=== PATIENT | male | born 1955 | race Caucasian/White ===

== ENCOUNTER 2016-09-18 15:07 | Observation (INO) | payer OTHER ==
[2016-09-18] MEDS ORDERED: Metoclopramide IV* 5 MG/ML 2 ML VIAL IV ONE (15:31)
[2016-09-18] MEDS ORDERED: NS 0.9% 1000 ML* 1,000 ML IV ONE (15:31)
[2016-09-18] MEDS ORDERED: Aspirin TAB* 325 MG PO ONE (15:46)
[2016-09-18] MEDS ORDERED: Morphine INJ* 4 MG/ML 1 ML SYRINGE IV ONE (15:46)
[2016-09-18 16:28] LABS: Hematocrit 44 % (42-52); Hemoglobin 14.7 g/dl (14.0-18.0); Mean Corpuscular HGB Conc 33 g/dl (31-36); Mean Corpuscular Hemoglobin 30 pg (27-31); Mean Corpuscular Volume 89 fL (80-94); Mean Platelet Volume 10 um3 (7.4-10.4); Red Cell Distribution Width 14 % (10.5-15); White Blood Count 13.4 10^3/ul (3.5-10.8)
[2016-09-18 16:43] LABS: Albumin 4.7 g/dL (3.2-5.2); BUN/Creatinine Ratio 17.1 (8-20); Calcium 9.8 mg/dL (8.6-10.3); EGFR Non-African American 72.3 (>60); Globulin 3.8 g/dL (2-4); Potassium 3.6 mmol/L (3.5-5.0); Total Bilirubin 1.4 mg/dL (0.2-1.0); Total Protein 8.5 g/dL (6.4-8.9)
--- NOTE | 2016-09-18 17:24 | RAD ---
Indication: Left flank pain. CT of the abdomen and pelvis was performed without oral or IV contrast administration. Coronal and sagittal reconstructed images were obtained. The lung bases demonstrate no pleural fluid, nodules or masses. Heart is of normal size without evidence of pericardial effusion. Liver is normal in size. No focal lesions or intrahepatic ductal dilatation is noted. The gallbladder demonstrates no calcified gallstones. No pericholecystic fluid or wall thickening is identified. The common duct is not dilated. The pancreas demonstrates no mass or pancreatic ductal dilatation. The spleen is normal in size. No adrenal masses are noted. The kidneys demonstrate no hydronephrosis in either kidney. No hydroureter is noted. No definite evidence of obstructive uropathy is noted. The urinary bladder is unremarkable. Aorta and inferior vena cava are grossly unremarkable. Atherosclerosis is noted. No dilated loops of bowel are noted. The colon is collapsed. Normal appendix is documented. No free fluid is identified. The prostate demonstrates calcifications from prior prostatitis. Mild compression of L1 and T12 age of which is undetermined. IMPRESSION: NO EVIDENCE OF OBSTRUCTIVE UROPATHY IS NOTED. NO ABNORMAL MASSES OR FLUID COLLECTIONS ARE IDENTIFIED. NO EVIDENCE OF CHOLELITHIASIS OR BILIARY DUCT DILATATION IS NOTED.
[2016-09-18] MEDS ORDERED: PROCHLORPERAZINE INJ 5 MG/ML 2 ML VIAL IV ONE (18:22)
[2016-09-18] MEDS ORDERED: Nitroglycerin TAB 0.4 MG* 0.4 MG TAB SL ONE (18:23)
[2016-09-18] MEDS ORDERED: LORazepam INJ* 2 MG/ML 1 ML VIAL IV PUSH ONE (18:51)
[2016-09-18] MEDS ORDERED: PROCHLORPERAZINE INJ 5 MG/ML 2 ML VIAL IV PRN (18:51)
[2016-09-18] MEDS ORDERED: Zolpidem TAB* 10 MG PO PRN (18:51)
[2016-09-18] MEDS ORDERED: Acetaminophen TAB* 325 MG PO PRN (18:51)
[2016-09-18] MEDS ORDERED: Cyclobenzaprine TAB* 10 MG PO PRN (18:57)
[2016-09-18] MEDS ORDERED: traMADol TAB* 50 MG PO PRN (18:57)
[2016-09-18] MEDS ORDERED: Albuterol 2.5 MG/3 ML NEB.SOL* (0.083%) INH PRN (18:59)
[2016-09-18] MEDS ORDERED: NS 0.9% 1000 ML* 1,000 ML IV SCH (19:00)
[2016-09-18 19:08] LABS: Urine Bacteria Absent (Absent); Urine Bilirubin Negative (Negative); Urine Glucose Negative (Negative); Urine Nitrite Negative (Negative)
[2016-09-18] MEDS: Ondansetron INJ* 2 MG/ML VIAL IV PRN (20:29)
[2016-09-18] MEDS: Pregabalin CAP(*) 50 MG PO SCH (21:37)
[2016-09-18] MEDS: CMC:Ranolazine (NF) 500 MG TAB PO SCH (21:37)
[2016-09-18] MEDS: Losartan TAB* 25 MG PO SCH (21:38)
[2016-09-18] MEDS: Heparin VIAL(*) 5000 UNITS/ML VIAL (FIVE THOUSAND) SUBCUT SCH (21:39)
[2016-09-18] MEDS: Aspirin EC Low Dose* 81 MG TAB.EC PO SCH (21:39)
[2016-09-18] MEDS: Propranolol LA CAP* 60 MG PO SCH (21:39)
[2016-09-18] MEDS: Atorvastatin* 40 MG TAB PO SCH (21:39)
[2016-09-18] MEDS: Clopidogrel TAB* 75 MG PO SCH (21:39)
--- NOTE | 2016-09-18 22:44 | HP ---
HISTORY AND PHYSICAL: DATE OF ADMISSION: 09/18/16 PRIMARY CARE PROVIDER: Dr. Garcia. ATTENDING PHYSICIAN WHILE IN THE HOSPITAL: Dr. Fransisco Rowe* (report dictated by Joss Ocampo, STANLEY). CHIEF COMPLAINT: 1. Nausea. 2. Vomiting. 3. Abdominal pain. HISTORY OF PRESENT ILLNESS: Mr. Thrasher is a 61-year-old male patient coming in to the ER today with complaints of 2 days of decreased appetite, nausea, vomiting, and also associated diarrhea, no recent antibiotics. He says he had been having chills off and on and now, he has been vomiting almost on an hourly basis to the point that he is just aching all over. He has not documented a fever. He says that he has vomited so much now that he has chest pain when he does vomit. He says that 5 weeks ago, he had a stent put in. He has a history of coronary artery disease, COPD, hyperlipidemia, hypertension, peripheral vascular disease, carotid artery disease. He has a history of hypertension, anxiety, and nephrolithiasis. He says he has been having some pain now on his left side. He was concerned that maybe he had another kidney stone because he typically gets nauseous with his kidney stones. So, he decided to come in to the ER. He says he had been having chest pain off and on since his stent was placed 5 weeks ago. He says that it has been nonexertional and he is to follow up with his primary senior pl sql developer which he says he has been following closely with, but his big complaint is why he came in today was because he was feeling nauseous, he was vomiting, and he was having diarrhea and he was having abdominal discomfort and he was aching all over. He does describe again chest pain at times being a pressure, nonexertional, and it has been off and on for several weeks now and again, he has been following with his senior pl sql developer. He was evaluated in the ER. There was concern for the nausea and vomiting and the hospitalist service was asked to evaluate for admission. PAST MEDICAL HISTORY: Significant for: 1. Hypertension. 2. Anxiety. 3. Nephrolithiasis. 4. Coronary artery disease. 5. Peripheral vascular disease. 6. COPD. 7. Carotid artery disease. 8. Hyperlipidemia. 9. History of heart block, status post pacemaker. 10. Fibromyalgia. PAST SURGICAL HISTORY: 1. He has had a pacemaker placed. 2. He has had a right shoulder arthroscopy. 3. Left knee arthroscopy. 4. Hernia repair. 5. Cardiac catheterization. 6. Lymph node resection, which is benign. 7. He has had angioplasty of the bilateral lower extremities. HOME MEDICATIONS: According to the list that he brought with him includes: 1. Aspirin 81 mg daily. 2. Alendronate 70 mg weekly. 3. Ventolin 1 to 2 puffs inhaled every 6 hours as needed. 4. Lexapro 20 mg daily. 5. Flexeril 10 mg p.o. t.i.d. as needed. 6. Plavix 75 mg daily. 7. Vitamin D3 2000 units p.o. daily. 8. Calcium carbonate with vitamin D 1 tablet p.o. b.i.d. 9. Lipitor 40 mg daily. 10. Propranolol 60 mg daily. 11. Lyrica 50 mg p.o. t.i.d. 12. Nitro 0.4 mg sublingual q.5 minutes p.r.n. chest pain x3. 13. Cozaar 50 mg daily. 14. Advil 400 mg every 6 hours as needed for pain. 15. Tramadol 50 mg every 8 hours as needed. 16. Chantix 1 tablet p.o. b.i.d. 17. Spiriva 2 puffs inhaled daily. 18. Ranexa 1000 mg p.o. b.i.d. ALLERGIES TO MEDICATIONS: Include GABAPENTIN. FAMILY HISTORY: His mother had a history of a valvular heart disease. Father had a history of SD and CAD. SOCIAL HISTORY: He is a half a pack a day smoker. Rarely drinks alcohol. Surrogate decision maker is his , Keysha. REVIEW OF SYSTEMS: There is no documented fever. He does admit to having chills. No significant weight change. There was no double vision. He denies having any ear discharge. There is no rhinorrhea. No sore throat. No thyroid enlargement. There was chest pain per my HPI. There was no orthopnea. No nocturnal dyspnea. There is nausea. There is vomiting. There is abdominal pain per my HPI. No dysuria. No frequency. No seizure. No loss of consciousness. No pruritus and no skin ulcerations. Review of 14 systems completed, all others negative. PHYSICAL EXAMINATION GENERAL: At this time, Mr. Thrasher is a 61-year-old male patient. He is morbidly obese. He is sitting on the ER stretcher. He does not appear to be in any acute distress. VITAL SIGNS: Blood pressure 178/80, pulse 91, respirations 18, O2 sat 96%, and temperature 96.0. HEENT: Head is atraumatic and normocephalic. Eyes: EOMs are intact. His sclerae were anicteric and not pale. Throat: Oral mucosa appears to be moist. No oropharyngeal erythema. NECK: Supple. LUNGS: Clear to auscultation. No wheezes, rales, or rhonchi. HEART: Sounds S1, S2. Regular rate and rhythm. No murmurs, rubs, or gallops. ABDOMEN: Soft, flat. Bowel sounds hyperactive in all 4 quadrants. He was nontender on my exam. EXTREMITIES: Pulses were 2+ throughout. No peripheral edema. He is able to move all 4 extremities with 5/5 strength. NEUROLOGIC: The patient is awake, he is alert, and he is oriented x3. No gross focal deficits. SKIN: Intact. LABORATORY DATA AND DIAGNOSTIC STUDIES: Today revealed WBC 13.4, RBC of 5.00, hemoglobin 14.7, hematocrit of 44, platelet count of 104. Sodium 138, potassium 3.6, chloride of 103, bicarb 24, BUN 18, creatinine 1.05, glucose 124 , lactic 3.0, calcium 9.8. Total bili 1.4, AST 15, ALT 15, alk phos 96. Troponin 0. Albumin of 4.7. Urine is pending. He had a chest, abdomen, and pelvis CT, which revealed impression: No evidence of obstructive uropathy is noted. No abnormal masses or fluid collections are identified. No evidence of cholelithiasis or biliary ductal dilatation. He had an EKG obtained today. EKG shows normal sinus rhythm with a PVC. No ST elevations or T-wave inversions were noted with a rate of 86. It was reviewed to the previous EKG. It is similar, but the PVC is new. Old medical records were reviewed. ASSESSMENT AND PLAN: Mr. Thrasher is a 61-year-old male patient coming in to the ER today with complaints of nausea, vomiting, diarrhea, aching, in addition to this having chest discomfort. He will be admitted under observation status for: 1. Nausea and vomiting with abdominal discomfort: I suspect he has a gastroenteritis. It has been going on for 2 days. I do not see the need to put antibiotics on the patient at this point. I would like to get a stool, send it off for sampling, cultures if possible. I am going to flu swab him. He does appear to be dehydrated. His lactic was 3. He got a liter here in the ER. I will continue normal saline at 100, repeat the lactic acid, and again, we will support him with antiemetics and clear liquid diet and see if any other symptoms evolve while he is here. His imaging was negative to this point. I will wait for the urine and I am also getting a flu swab and we will treat appropriately if any of these come back positive. 2. Chest pain: Again, this has been going on for sometime. Certainly with the nausea and vomiting, this could be acute coronary syndrome possibly, but I think this is less likely because he has been having diarrhea which does not fit and his chest discomfort has been going on for sometime. I do think he is warranted to check his troponins. I would not do a stress test at this point because he is acutely ill, but this could be done in the outpatient setting under the direction of his senior pl sql developer. 3. Coronary artery disease: Continue his aspirin, statin, beta-bart, and Plavix. 4. Hypertension: Continue meds as prescribed. His blood pressure is elevated here in the ER, but he says he has not taken his meds in a couple days, so we will restart them now and get him back on his Plavix and aspirin. 5. Anxiety: We will go ahead and continue his Lexapro, and I will give him a dose of Ativan now. This may help his nausea. He does state that he feels very anxious. 6. History of peripheral vascular disease: Continue with aspirin and Plavix. 7. Chronic obstructive pulmonary disease: Continue Spiriva p.r.n. neb. 8. Carotid artery disease: Continue with aspirin, Plavix, and statin therapy. 9. Hyperlipidemia: Continue statin therapy. 10. History of fibromyalgia: Continue meds as prescribed. 11. DVT prophylaxis: He is moderate risk. I do think I will put him on heparin subcu. 12. Code status: Full code. 13. Fluids, electrolytes, and nutrition: He will have a clear liquid diet and I will go ahead and hydrate him with normal saline at 100 an hour and replace lytes as needed. TIME SPENT: Time spent on the admission was approximately 60 minutes, greater than half the time was spent [id number] with the patient obtaining my history and physical, other half the time spent going over the plan of care with the patient and implementing plan of care. I did discuss the plan of care with my attending, Dr. Rowe; he is in agreement. JOSS OCAMPO NP CC: Dr. Garcia* [id number]/CPS #: [id number] PATRICIO
[2016-09-19] MEDS: Heparin VIAL(*) 5000 UNITS/ML VIAL (FIVE THOUSAND) SUBCUT SCH ×3 (06:00→21:29)
[2016-09-19 06:02] LABS: Hematocrit 38 % (42-52); Mean Corpuscular HGB Conc 34 g/dl (31-36); Mean Corpuscular Hemoglobin 30 pg (27-31); Mean Corpuscular Volume 88 fL (80-94); Mean Platelet Volume 10 um3 (7.4-10.4); Red Blood Count 4.36 10^6/ul (4.0-5.4); Red Cell Distribution Width 14 % (10.5-15); White Blood Count 10.3 10^3/ul (3.5-10.8)
[2016-09-19 06:18] LABS: BUN/Creatinine Ratio 21.4 (8-20); Calcium 8.6 mg/dL (8.6-10.3); EGFR African American 120.3 (>60); EGFR Non-African American 93.5 (>60); Potassium 3.6 mmol/L (3.5-5.0)
[2016-09-19 08:41] LABS: Troponin I 0.11 ng/mL (<0.04)
[2016-09-19] MEDS: CMC:Ranolazine (NF) 500 MG TAB PO SCH ×2 (08:46→20:48)
[2016-09-19] MEDS: Losartan TAB* 25 MG PO SCH (08:47)
[2016-09-19] MEDS: Aspirin EC Low Dose* 81 MG TAB.EC PO SCH (08:47)
[2016-09-19] MEDS: Pregabalin CAP(*) 50 MG PO SCH ×3 (08:47→20:48)
[2016-09-19] MEDS: Atorvastatin* 40 MG TAB PO SCH (08:47)
[2016-09-19] MEDS: Clopidogrel TAB* 75 MG PO SCH (08:48)
[2016-09-19] MEDS ORDERED: CMC:Escitalopram (NF) 20 MG TAB PO SCH (09:00)
[2016-09-19] MEDS: Propranolol LA CAP* 60 MG PO SCH (09:02)
[2016-09-19] MEDS: Tiotropium CAP.INH* CAP.INH/18 MCG INH SCH (13:19)
--- NOTE | 2016-09-19 14:15 | PN ---
Subjective Date of Service: 09/19/16 Interval History: Patient is ambulating in halls. He denies CP, SOB, abd pain, n/v. He states, "I feel great." He does however endorse a history of intermittent chest pain for several weeks following a stent placement at [facility]. He has had inconsistent follow-up and states that he gets exertional chest pain still and has been started on Ranexa and "another medication." He thinks he will be seen again in 2 weeks; he is due for a stress test but doesn't know when that will be. Family History: Unchanged from Admission Social History: Unchanged from Admission Past Medical History: Unchanged from Admission Objective Active Medications: Acetaminophen (Tylenol Tab*) 650 mg PO Q4H PRN PRN Reason: FEVER/PAIN Albuterol (Ventolin 2.5 Mg/3 Ml Neb.Ileana*) 2.5 mg INH Q2H PRN PRN Reason: SOB/WHEEZING Aspirin (Aspirin Ec Low Dose*) 81 mg PO DAILY [facility] Last Admin: 09/19/16 08:47 Dose: 81 mg Atorvastatin Calcium (Lipitor*) 40 mg PO DAILY [facility] Last Admin: 09/19/16 08:47 Dose: 40 mg Clopidogrel Bisulfate (Plavix Tab*) 75 mg PO DAILY [facility] Last Admin: 09/19/16 08:48 Dose: 75 mg Cyclobenzaprine HCl (Flexeril Tab*) 10 mg PO TID PRN PRN Reason: SPASMS Escitalopram Oxalate (Lexapro (Nf)) 20 mg PO DAILY [facility] Last Admin: 09/19/16 08:52 Dose: 20 mg Heparin Sodium (Porcine) (Heparin Vial(*)) 5,000 units SUBCUT Q8HR [facility] Last Admin: 09/19/16 13:10 Dose: 5,000 units Sodium Chloride (Ns 0.9% 1000 Ml*) 1,000 mls @ 100 mls/hr IV PER RATE [facility] Losartan Potassium (Cozaar Tab*) 50 mg PO DAILY [facility] Last Admin: 09/19/16 08:47 Dose: 50 mg Ondansetron HCl (Zofran Inj*) 4 mg IV Q6H PRN PRN Reason: NAUSEA Last Admin: 09/18/16 20:29 Dose: 4 mg Pregabalin (Lyrica Cap(*)) 50 mg PO TID [facility] Last Admin: 09/19/16 13:10 Dose: 50 mg Prochlorperazine Edisylate (Compazine Inj*) 5 mg IV Q6H PRN PRN Reason: NAUSEA/VOMITING Propranolol HCl (Inderal La Cap*) 60 mg PO DAILY [facility] Last Admin: 09/19/16 09:02 Dose: 60 mg Ranolazine (Ranexa (Nf)) 1,000 mg PO BID [facility] PRN Reason: Protocol Last Admin: 09/19/16 08:46 Dose: 1,000 mg Tiotropium Lindsay (Spiriva Cap.Inh*) 1 cap INH DAILY [facility] Last Admin: 09/19/16 13:19 Dose: 1 cap Tramadol HCl (Ultram*) 50 mg PO Q8H PRN PRN Reason: PAIN Zolpidem Tartrate (Ambien Tab*) 10 mg PO BEDTIME PRN PRN Reason: INSOMNIA Vital Signs 09/18/16 09/18/16 09/18/16 18:30 19:50 20:29 Temperature 98.4 F Pulse Rate 90 92 Respiratory 17 16 18 Rate Blood Pressure 178/80 171/91 (mmHg) O2 Sat by Pulse 96 99 Oximetry 09/18/16 09/18/16 09/18/16 21:29 21:37 23:37 Temperature Pulse Rate Respiratory 28 28 28 Rate Blood Pressure (mmHg) O2 Sat by Pulse Oximetry 09/18/16 09/19/16 09/19/16 23:53 00:25 04:42 Temperature 98.1 F 98.1 F Pulse Rate 102 80 Respiratory 20 20 16 Rate Blood Pressure 158/74 129/75 (mmHg) O2 Sat by Pulse 94 96 Oximetry 09/19/16 09/19/16 09/19/16 07:34 08:47 11:36 Temperature 98.3 F 98.2 F Pulse Rate 75 76 Respiratory 16 18 16 Rate Blood Pressure 131/81 139/68 (mmHg) O2 Sat by Pulse 98 97 Oximetry 09/19/16 13:10 Temperature Pulse Rate Respiratory 18 Rate Blood Pressure (mmHg) O2 Sat by Pulse Oximetry Oxygen Devices in Use Now: None Appearance: Pleasant gentleman, ambulating in halls, NAD Eyes: PERRLA Ears/Nose/Mouth/Throat: Mucous Membranes Moist Neck: NL Appearance and Movements; NL JVP Respiratory: Symmetrical Chest Expansion and Respiratory Effort, Clear to Auscultation Cardiovascular: NL Sounds; No Murmurs; No JVD, RRR Abdominal: NL Sounds; No Tenderness; No Distention Extremities: No Edema Skin: No Rash or Ulcers Neurological: Alert and Oriented x 3, NL Gait, NL Muscle Strength and Tone Lines/Tubes/Other Access: Clean, Dry and Intact Peripheral IV Nutrition: Taking PO's Result Diagrams: 09/19/16 05:48 09/19/16 05:48 Microbiology and Other Data: Microbiology 09/19/16 03:20 Influenza Types A,B Antigen (MEÑO) - Final Nasal Specimen received for Influenza A/B Molecular testing Assess/Plan/Problems-Billing Assessment: Mr. Thrasher is a 61 yo gentleman with a PMH of CAD, HTN, PVD, COPD, anxiety, carotid artery disease, nephrolithiasis, HLD, heart block s/p pacemaker, and fibromyalgia, who presented to the ED on 09/18 with concern for abdominal pain, n /v. - Patient Problems (1) Nausea and vomiting Code(s): R11.2 - NAUSEA WITH VOMITING, UNSPECIFIED Comment: Resolved. Suspect secondary to acute gastroenteritis. Patient is tolerating PO intake. Leukocytosis has resolved. (2) Chest pain Code(s): R07.9 - CHEST PAIN, UNSPECIFIED Comment: With elevated troponin, peak 0.11 Denies any continued chest pain but states it has been occurring intermittently since stent was placed. Troponin may be secondary to demand ischemia, but given risk factors, will check nuclear stress test tomorrow prior to discharge. Continue Ranexa. (3) CAD (coronary artery disease) Code(s): I25.10 - ATHSCL HEART DISEASE OF [place] CORONARY ARTERY W/O ANG PCTRS Comment: Continue ASA, statin, beta bart, clopidogrel. (4) HTN (hypertension) Code(s): I10 - ESSENTIAL (PRIMARY) HYPERTENSION Comment: Better controlled today. Continue propranalol and losartan. Patient noted to have missed some doses at home, which may be contributing to recurrent chest pain. (5) HLD (hyperlipidemia) Code(s): E78.5 - HYPERLIPIDEMIA, UNSPECIFIED Comment: Continue statin. (6) PVD (peripheral vascular disease) Code(s): I73.9 - PERIPHERAL VASCULAR DISEASE, UNSPECIFIED Comment: Continue ASA, clopidogrel (7) Anxiety Code(s): F41.9 - ANXIETY DISORDER, UNSPECIFIED Comment: Continue escitalopram. (8) COPD (chronic obstructive pulmonary disease) Code(s): J44.9 - CHRONIC OBSTRUCTIVE PULMONARY DISEASE, UNSPECIFIED Comment: Continue Spiriva, prn albuterol (9) Carotid arterial disease Code(s): I77.9 - DISORDER OF ARTERIES AND ARTERIOLES, UNSPECIFIED Comment: Continue ASA, clopidogrel, statin (10) Fibromyalgia Code(s): M79.7 - FIBROMYALGIA Comment: Continue home cyclobenzaprine, pregabalin, tramadol (11) DVT prophylaxis Code(s): JQQ5999 - Comment: SQ heparin Status and Disposition: OBV admit. D/c to home when medically stable. Anticipate potential d/c tomorrow following stress test.
[2016-09-19] MEDS ORDERED: Nicotine Inhaler* 10 MG AMP INH PRN (17:49)
[2016-09-19] MEDS ORDERED: Nicotine GUM* 2 MG PO PRN (17:49)
[2016-09-19] MEDS ORDERED: Nicotine PATCH 21 MG/24 HR* PATCH TRANSDERM SCH (18:00)
[2016-09-19] MEDS ORDERED: Mouth Piece, Nicotine* 1 EACH CARTRIDGE ONE (18:07)
[2016-09-19] MEDS ORDERED: Nicotine PATCH 21 MG/24 HR* PATCH ONE (18:15)
[2016-09-19] MEDS ORDERED: Nicotine Inhaler* 10 MG AMP ONE (18:15)
[2016-09-19] MEDS ORDERED: Mouth Piece, Nicotine* 1 EACH CARTRIDGE INH ONE (19:00)
[2016-09-20] MEDS: Heparin VIAL(*) 5000 UNITS/ML VIAL (FIVE THOUSAND) SUBCUT SCH (05:39)
--- NOTE | 2016-09-20 08:31 | ECHO ---
Patient: JALIL SALTER V [facility] Rec#: [id number] : 1955 Date: 09/20/2016 Age: 61y Height: 172.72 cm / 68.0 in Weight: 100.24 kg / 220.9 lbs Sex: M BSA: 2.13 Admit Date#: 09/18/2016 Referring: Shalini Rosa Reading: Saurabh Aguilar MD Jet Operator: Taylor Cobb RDCS CC: Carroll Garcia MD Transthoracic Echocardiogram Findings History: Recent PCI at [facility],CAD,COPD,HTN,PVD,HLD,heart block s/p pacer,smoker. Technical Comments: The study is technically limited due to the patient's history of COPD. Completed at 0820. Left Ventricle: Mild concentric left ventricular hypertrophy is observed. Global left ventricular wall motion and contractility are within normal limits. There is normal left ventricular systolic function. The estimated ejection fraction is 55-60%. Abnormal left ventricular diastolic function is observed. Left Atrium: The left atrial chamber size is normal. Right Ventricle: The right ventricular cavity size is normal. The right ventricular global systolic function is normal. A pacemaker wire is visualized in the right ventricle. Right Atrium: The right atrial cavity size is normal. A pacemaker wire is visualized in the right atrium. Aortic Valve: The aortic valve structure is not well visualized. There is trace to mild aortic regurgitation. Mitral Valve: The mitral valve leaflets are mildly thickened. There is mild mitral regurgitation. There is no evidence of mitral stenosis. Tricuspid Valve: The tricuspid valve leaflets are normal. Pulmonic Valve: The pulmonic valve appears normal. There is no evidence of pulmonic regurgitation. There is no pulmonic stenosis. Pericardium: The pericardium appears normal. A pericardial fat pad is visualized. Aorta: There is no dilatation of the ascending aorta. There is no dilatation of the aortic arch. There is no dilation of the aortic root. Pulmonary Artery: The main pulmonary artery appears normal. Venous: The venous system is not well visualized. Conclusions Global left ventricular wall motion and contractility are within normal limits. There is normal left ventricular systolic function. The estimated ejection fraction is 55-60%. The right ventricular global systolic function is normal. The left atrial chamber size is normal. There is trace to mild aortic regurgitation. There is mild mitral regurgitation. The tricuspid valve leaflets are normal. The pericardium appears normal. Measurements Name Value Normal Range RVIDd (AP) 2D 2.7 cm (0.9 - 2.6) RVDdMajor (2D) 2.7 cm (2.2 - 4.4) RAd ISD 4CH 4.3 cm (3.4 - 4.9) RA (A4C)W 2.8 cm (2.9 - 4.6) IVSd (2D) 1.2 cm (0.6 - 1) LVPWd (2D) 1.2 cm (0.6 - 1) LVIDd (2D) 4.4 cm (3.6 - 5.4) LVIDs (2D) 2.7 cm - LV FS (2D) 40 % (25 - 45) Aortic Annulus 2.1 cm (1.4 - 2.6) Ao root diameter (2D) 2.1 cm (2.1 - 3.5) Ascending Ao 2.9 cm (2.1 - 3.4) Aortic arch 2.6 cm (1.8 - 3.4) Descending Ao 0.7 cm - LA dimension (AP) 2D 2.7 cm (2.3 - 3.8) LAd ISD 4CH 4 cm (2.9 - 5.3) LA ISD 4CH W 2.9 cm (2.5 - 4.5) Name Value Normal Range LA ESV SP 4CH (A/L) 27 ml - LA ESV SP 2CH (A/L) 30 ml - LA ESV BP (A/L) 29 ml - LA ESV BP (A/L) index 13.53 ml/m2 - LA ESV SP 4CH (MOD) 27 ml - LA ESV SP 2CH (MOD) 30 ml - Name Value Normal Range MV E-wave Vmax 0.7 m/sec - MV deceleration time 178 msec - MV A-wave Vmax 1.1 m/sec - MV E:A ratio 0.66 ratio - LV septal e' Vmax 0.07 m/sec - LV lateral e' Vmax 0.06 m/sec - LV E:e' septal ratio 10 ratio - LV E:e' lateral ratio 11.67 ratio - Name Value Normal Range AV Vmax 1.5 m/sec - AV VTI 29.6 cm - AV peak gradient 9.4 mmHg - AV mean gradient 4.66 mmHg - LVOT Vmax 0.9 m/sec - LVOT VTI 18.7 cm - LVOT peak gradient 3.34 mmHg - LVOT mean gradient 1.56 mmHg - AR PHT 604 msec - AR peak gradient 17.33 mmHg - Name Value Normal Range TR Vmax 2.3 m/sec - TR peak gradient 21 mmHg - Name Value Normal Range PV Vmax 0.7 m/sec - PV peak gradient 1.71 mmHg -
[2016-09-20] MEDS ORDERED: Escitalopram (NF) 10 MG TAB PO SCH (09:00)
[2016-09-20] MEDS: Atorvastatin* 40 MG TAB PO SCH (09:13)
[2016-09-20] MEDS: CMC:Ranolazine (NF) 500 MG TAB PO SCH (09:13)
[2016-09-20] MEDS: Losartan TAB* 25 MG PO SCH (09:14)
[2016-09-20] MEDS: Aspirin EC Low Dose* 81 MG TAB.EC PO SCH (09:14)
[2016-09-20] MEDS: Clopidogrel TAB* 75 MG PO SCH (09:14)
[2016-09-20] MEDS: Pregabalin CAP(*) 50 MG PO SCH ×2 (09:15→13:07)
[2016-09-20] MEDS: Ondansetron INJ* 2 MG/ML VIAL IV PRN (09:26)
[2016-09-20] MEDS: Propranolol LA CAP* 60 MG PO SCH (09:36)
[2016-09-20] MEDS ORDERED: Regadenoson* 0.4 MG/5 ML SYRINGE ONE (10:16)
[2016-09-20] MEDS: Tiotropium CAP.INH* CAP.INH/18 MCG INH SCH (11:23)
[2016-09-20 11:50] VITALS: BP 131/77
--- NOTE | 2016-09-20 12:03 | RAD ---
HISTORY: Chest pain, shortness of breath, cardiac catheterization, hypertension, obesity, history of angina plasty COMPARISONS: None TECHNIQUE: A 1 day stress/rest myocardial perfusion study was performed, with pharmacologic stress. The stress portion was monitored by Dr. Razo. Gated SPECT imaging was performed, with CT-based attenuation correction DOSE: Stress: Technetium 99m tetrofosmin, 25.4 millicuries, injected at 10:38 AM on September 20, 2016 Rest: Technetium 99m tetrofosmin, 10.4 millicuries, injected at 8:09 AM on September 20, 2016 Pharmacologic agent: Lexiscan FINDINGS: CARDIAC MONITORING: No EKG changes of ischemia with stress EF: 67 % TID: 1.22 MOTION: Normal motion, with normal wall thickening. PERFUSION: There is a small reversible defect of the inferior wall that resolves attenuation correction and may be an artifact of soft tissue attenuation. A small reversible defect of the septum on the attenuation corrected images is not evident on the source images and is likely artifactual. There is physiologic apical thinning. OTHER: None IMPRESSION: NO DEFINITE FIXED OR REVERSIBLE PERFUSION DEFECTS ASSESSMENT: LOW RISK. Based on imaging criteria from ACC/AHA 2002. Guideline Update for the Management of Patient's with Chronic Stable Angina, table 23. Noninvasive Risk Stratification.
--- NOTE | 2016-09-21 03:30 | DS ---
DISCHARGE SUMMARY: DATE OF ADMISSION: 09/18/16 DATE OF DISCHARGE: 09/20/16 PRIMARY CARE PROVIDER: Dr. Carroll Garcia. DISCHARGING PROVIDER: JOSEPH De Luna SUPERVISING PHYSICIAN: Lexi Seymour MD * (DICTATED BY JOSEPH DE LUNA) PRIMARY DISCHARGE DIAGNOSES: 1. Chest pain. 2. Viral gastroenteritis. SECONDARY DISCHARGE DIAGNOSES: 1. Coronary artery disease, status post PCI at [facility] approximately 6 weeks ago without evidence of stent stenosis or other acute coronary syndrome. 2. Hypertension. 3. Hyperlipidemia. 4. Peripheral vascular disease. 5. Anxiety. 6. Chronic obstructive pulmonary disease. 7. Carotid stenosis. 8. Fibromyalgia. DISCHARGE MEDICATIONS: 1. Albuterol inhaler 1 to 2 puffs inhaled q.4 hours as needed for shortness of breath. 2. Fosamax 70 mg p.o. weekly. 3. Aspirin 81 mg p.o. daily. 4. Atorvastatin 40 mg p.o. daily. 5. Calcium carbonate and vitamin D 1 tablet p.o. twice daily. 6. Plavix 75 mg p.o. daily. 7. Flexeril 10 mg p.o. t.i.d. as needed. 8. Diazepam 5 mg p.o. t.i.d. as needed for anxiety and chest pain. 9. Lexapro 20 mg p.o. daily. 10. Losartan 50 mg p.o. daily. 11. Nitroglycerin 0.4 mg subinguinal q.5 minutes as needed for chest pain. 12. Lyrica 50 mg p.o. t.i.d. 13. Propranolol 60 mg extended release p.o. daily. 14. Ranexa 1000 mg p.o. twice daily. 15. Spiriva 2 puffs inhaled daily. 16. Chantix 1 mg p.o. b.i.d. 17. Tramadol 50 mg p.o. q.8 hours as needed for pain. MEDICATION CHANGES: Start Valium as needed. HOSPITAL IMAGIN. CT of the abdomen and pelvis, 09/18/16, shows no evidence of obstructive uropathy. No abnormal masses or fluid collections. No other acute intraabdominal pathology. 2. Nuclear stress test is read as a low-risk study with no definite fixed or reversible perfusion defects. There are 2 separate small areas of possible perfusion abnormalities that are thought to represent attenuation. 3. Echocardiogram, 09/19/16, shows normal left ventricular ejection fraction at 55% to 60% without significant valvular abnormalities. 4. EKG shows a sinus rhythm that demonstrates no significant ischemic changes. HOSPITAL COURSE: This is a 61-year-old gentleman with an extensive medical history including coronary artery disease, hypertension, hyperlipidemia, peripheral vascular disease, anxiety, COPD, carotid stenosis, and fibromyalgia who underwent PCI at [facility] the middle of July, which was approximately 6 weeks ago. The patient had been complaining of chest pain at that time. Additional details surrounding his hospitalization and intervention are not available at this time. The patient states that starting 2 days after the procedure, he continued to have similar chest pains that he was experiencing prior to the procedure. He has followed up with his agricultural sales representative on numerous occasions regarding these complaints and he was started on Ranexa as well as propranolol regarding these complaints without relief. He has attempted taking nitroglycerin at the time that he has chest pain and also has no associated relief of symptoms. He reports that he often feels short of breath and then has some mental "fogginess" and symptoms can last for up to a couple of hours and then spontaneously resolve. He has tried using his albuterol inhaler as well when he experiences chest pain or shortness of breath and also reports no relief from it. He states that he has previously been prescribed diazepam by his psychiatrist, but has not been seen in greater than a year and has not taken this medication recently. In addition to the complaints of chest pain, the patient was also experiencing nausea, vomiting and diarrhea. A CT scan of the abdomen and pelvis was performed, which showed no acute pathology. His initial labs showed a moderate leukocytosis with a white blood cell count of 13,400. Initial chemistries were largely benign. Lactic acid was elevated, however, at 3.0. The patient received supportive care measures including IV fluids and antiemetics and his complaints of nausea, vomiting and diarrhea resolved. Due to his complaints of chest pain, the patient underwent a nuclear stress test , which demonstrated no obvious perfusion defects. There were a couple of small areas that were interpreted as likely artifacts. The patient's initial troponin was 0 and peaked to 0.11 and fell to 0.03 and he had no EKG changes during his hospitalization. Discussed with the patient that it seems less likely that his recurrent chest pain is cardiac related as he has not responded to initiation of the anti- anginal agents and the use of nitroglycerin during chest pain and there are no reversible defects appreciated on stress test. Discussed the possibility of microvascular disease potentially contributing to his complaints, but he should have some positive effect from nitroglycerin if that were the case. He has also attempted to use his inhaler without improvement and has no wheezing or cough noted on lung exam. Anxiety is a possibility that may be contributing to his current symptoms. He states he used to have positive benefit from the use of diazepam. DISPOSITION: The patient is being discharged to home with recommendations to follow up with his primary care provider within the next week. He has been prescribed a 5-day supply of diazepam for as-needed use to see if he received symptomatic improvement in his chest pain, which would be both diagnostic and therapeutic pointing to anxiety being the most likely cause of his continued chest pain. He has followup established with his agricultural sales representative in approximately 3 weeks, which he is encouraged to keep. His GI symptoms have otherwise resolved and do not require further intervention. JOSEPH DE LUNA CC: Dr. Garcia * [id number]/[facility] #: [id number] PATRICIO
--- NOTE | 2016-09-21 08:49 | ED ---
Clovis Amezquita Matthew, scribed for Rico Davenport MD on 09/18/16 at 1617 . GI/ HPI - HPI Summary HPI Summary: A 61 y/o male presents to the ED with vomiting since 04:00 this morning. Associated symptoms include nausea - since yesterday, diarrhea - since yesterday described as watery, diaphoresis, chills, left sided lower back pain since last night, suprapubic abdominal pain, and cough. He's also c/o of intermittent mid sternal chest pain described as tightness and rated 8/10 in severity at its worst. He denies urinary symptoms. He took a nitroglycerin at 14 :00 today, which did not relive his symptoms. He had Zofran in the [facility] without relief. The patient also took OTC anti nausea medication, which did not resolve his nausea. Recent heart stent placed on August 09 at [facility]. He has chronic ankle swelling. Hx of hernia. Hx of kidney stones with similar symptoms he's having today. No drinking. An everyday smoker. - History of Current Complaint Time Seen by Provider: 09/18/16 15:30 Stated Complaint: GENERAL ILLNESS Hx Obtained From: Patient Onset/Duration: Started Hours Ago, Atraumatic, Still Present Timing: Constant Severity: Moderate Current Severity: Moderate Location of Pain: Suprapubic Associated Signs and Symptoms: Positive: Back Pain - left sided CVA pain, Nausea , Vomiting, Diarrhea, Diaphoresis, Chills, Abdominal Pain, Cough, Chest Pain. Negative: UTI Symptoms - Allergy/Home Medications Allergies/Adverse Reactions: Allergies Allergy/AdvReac Type Severity Reaction Status Date / Time Gabapentin AdvReac Stomach Verified 09/08/16 10:17 Cramps PACEMAKER - NO MRIs Allergy PACEMAKER Uncoded 05/12/16 11:01 - CONTRAINDICATED FOR MRIs PMH/Surg Hx/FS Hx/Imm Hx Endocrine/Hematology History: Denies: Hx Diabetes, Hx Systemic Lupus Erythematosus Cardiovascular History: Reports: Hx Auto Implanted Cardiovert Defib - Pacemaker , Hx Hypercholesterolemia, Hx Hypertension, Hx Pacemaker/ICD - NO MRIs AT THIS TIME, Other Cardiovascular Problems/Disorders - Stent placed in artery 08/09/16 Denies: Hx Congestive Heart Failure Respiratory History: Reports: Hx Chronic Obstructive Pulmonary Disease (COPD), Hx Sleep Apnea, Other Respiratory Problems/Disorders - COPD Denies: Hx Asthma History: Reports: Other Problems/Disorders - KIDNEY STONES Denies: Hx Dialysis, Hx Renal Disease Musculoskeletal History: Reports: Hx Arthritis, Hx Back Problems, Hx Fibromyalgia, Hx Scoliosis Denies: Hx Rheumatoid Arthritis Sensory History: Reports: Hx Contacts or Glasses, Hx Hearing Aid Opthamlomology History: Reports: Hx Contacts or Glasses Neurological History: Reports: Other Neuro Impairments/Disorders - TIA SYMPTOMS , CHRONIC QUAN, cognitive deficits Psychiatric History: Reports: Hx Anxiety Denies: Hx Panic Disorder - Cancer History Hx Chemotherapy: No - Surgical History Surgery Procedure, Year, and Place: left knee ARTHROSCOPY, cataract, hernia repair; RIGHT SHOULDER ARTHOSCOPY 05/28/13, REMOVAL OF PIN IN LEFT KNEE 05/28/13 , ANGIOPLASTY(NO STENTS), LUMPS REMOVED FROM THROAT(BENIGN) 2013, Pacemaker 2014 ; [place] placement in artery [place]09[place] [facility] [place] Infectious Disease History: Denies: Traveled Outside the [place] in Last 30 Days - Family History Known Family History: Positive: Cardiac Disease, Hypertension - Social History Alcohol Use: Rare Alcohol Amount: 2-3 wk Substance Use Type: Reports: Marijuana Substance Use Comment - Amount & Last Used: daily Hx Tobacco Use: Yes Smoking Status (MU): Current Every Day Smoker Type: Cigarettes Amount Used/How Often: 4-5 cigarettes/day Have You Smoked in the Last Year: Yes Review of Systems Positive: Chills, Skin Diaphoresis. Negative: Fever Eyes: Negative Negative: Erythema ENT: Negative Negative: Sore Throat Positive: Chest Pain - mid sternal described as tightness Positive: Cough. Negative: Shortness Of Breath Positive: Abdominal Pain - suprapubic , Vomiting - since 04:00, Diarrhea - described as watery since yesterday , Nausea Genitourinary: Negative Negative: dysuria, hematuria Musculoskeletal: Negative Negative: Myalgia, Edema Skin: Negative Negative: Rash Neurological: Negative Negative: Headache Psychological: Normal All Other Systems Reviewed And Are Negative: Yes Physical Exam Triage Information Reviewed: Yes Vital Signs On Initial Exam: Temp Pulse Resp BP Pulse Ox 96 F 84 22 151/108 98 09/18/16 15:28 09/18/16 15:28 09/18/16 16:03 09/18/16 15:28 09/18/16 15:28 Vital Signs Reviewed: Yes Appearance: Positive: Ill-Appearing Skin: Positive: Diaphoretic Head/Face: Positive: Other - Normocephalic; Atraumatic Eyes: Positive: Conjunctiva Clear Dental: Negative: Cervical Lymphadenopathy Neck: Positive: No Lymphadenopathy, Other: - Full ROM; No JVD Respiratory/Lung Sounds: Positive: Other - Normal Effort; No respiratory distress. Negative: Rales, Rhonchi, Stridor, Tracheal Deviation, Wheezes Cardiovascular: Positive: RRR, Other - Heart sounds normal; Intact distal pulses; The pedal pulses are 2+ and symmetric. Radial pulses are 2+ and symmetric. Negative: Murmur Abdomen Description: Positive: Nontender, Soft, CVA Tenderness (L), Other: - No Rebound. Negative: Distended, Guarding Diagnostics - Laboratory Result Diagrams: 09/18/16 16:19 09/18/16 16:19 Lab Statement: Any lab studies that have been ordered have been reviewed, and results considered in the medical decision making process. - CT A/P CT CT Interpretation: No Acute Changes - IMPRESSION: NO EVIDENCE OF OBSTRUCTIVE UROPATHY IS NOTED. NO ABNORMAL MASSES OR FLUID COLLECTIONS ARE IDENTIFIED. NO EVIDENCE OF CHOLELITHIASIS OR BILIARY DUCT DILATATION IS NOTED. CT Interpretation Completed By: Radiologist - EKG 16:00 Cardiac Rate: NL - 86 bpm EKG Rhythm: Sinus Rhythm EKG Interpretation: Ventricular premature complex; No STEMI GIGU Course/Dx - Course Assessment/Plan: A 61 y/o male presents to the ED with vomiting since 04:00 this morning. Associated symptoms include nausea - since yesterday, diarrhea - since yesterday described as watery, diaphoresis, chills, left sided lower back pain since last night, suprapubic abdominal pain, and cough. He's also c/o of intermittent mid sternal chest pain described as tightness and rated 8/10 in severity at its worst. He denies urinary symptoms. He took a nitroglycerin at 14 :00 today, which did not relive his symptoms. He had Zofran in the [facility] without relief. The patient also took OTC anti-nausea medication, which did not resolve his nausea. Recent heart stent placed on August 09 at [facility]. He has chronic ankle swelling. Hx of hernia. Hx of kidney stones with similar symptoms he's having today. No drinking. An everyday smoker. Labs were reviewed and shows troponin of 0.00 and lactic acid of 3.0. A/P CT shows no evidence of obstructive uropathy is noted. no abnormal masses or fluid collections are identified. no evidence of cholelithiasis or biliary duct dilatation is noted. EKG shows sinus rhythm at 86 bpm with ventricular premature complexes. Discussed the case with Dr. Thomas who will admit the patient into his services for further work-up and management. - Diagnoses Provider Diagnoses: Chest pain, unspecified, Vomiting - Physician Notifications Discussed Care Of Patient With: Dr. Thomas (Hospitalist) at 18:22 -- Notified of patient's history and will admit the patient. Discharge - Discharge Plan Condition: Stable Disposition: ADMITTED TO [facility] Referrals: Carroll Garcia MD [Primary Care Provider] - The documentation as recorded by the Clovis fofana Matthew accurately reflects the service I personally performed and the decisions made by , Rico Davenport MD.
[2016-09-21] MEDS ORDERED: Tiotropium CAP.INH* CAP.INH/18 MCG INH SCH (09:00)
== END 2016-09-20 14:30 | disposition home or self-care (01) ==
LOC: ED 15:07 → MEDTELE 18:25
PROVIDERS: ADMIT Hospitalist; ATTEND Internal Medicine
DX: R07.9 Chest pain, unspecified (principal); A08.4 Viral intestinal infection, unspecified; I25.10 Atherosclerotic heart disease of native coronary artery without angina pectoris; I10 Essential (primary) hypertension; E78.5 Hyperlipidemia, unspecified; I73.9 Peripheral vascular disease, unspecified; F41.9 Anxiety disorder, unspecified; J44.9 Chronic obstructive pulmonary disease, unspecified; I65.29 Occlusion and stenosis of unspecified carotid artery; M79.7 Fibromyalgia; Z95.0 Presence of cardiac pacemaker; E66.01 Morbid (severe) obesity due to excess calories; F17.210 Nicotine dependence, cigarettes, uncomplicated; Z79.899 Other long term (current) drug therapy; Z79.82 Long term (current) use of aspirin; Z79.02 Long term (current) use of antithrombotics/antiplatelets; R94.31 Abnormal electrocardiogram [ECG] [EKG]
CPT/HCPCS: 36415; 74176; 78452; 80048; 80053; 81003; 81015; 83605; 83690; 84484; 85025; 87086; 87502; 93005; 93017; 93306; 96361; 96372; 96374; 96375; 96376; 99284; A9270-GY; A9502; G0378; J0780; J1644; J2060; J2270; J2405; J2785

== ENCOUNTER 2017-03-19 15:07 | Emergency (ER) | payer OTHER ==
[2017-03-19] MEDS ORDERED: Aspirin EC Low Dose* 81 MG TAB.EC PO ONE (15:13)
[2017-03-19 15:28] VITALS: BP 143/76
[2017-03-19] MEDS ORDERED: Aspirin Low Dose CHEW TAB* 81 MG ONE (15:28)
--- NOTE | 2017-03-19 15:40 | UC ---
Cardiac HPI - HPI Summary HPI Summary: 61 year old with cardiac history with previous stent July 2016 and having chest pressure since this AM< He took one dose of ASA this AM. No SOB. Has had right neck swelling as well. - History of Current Complaint Chief Complaint: UCChestPain Stated Complaint: CHEST PAIN Time Seen by Provider: 03/19/17 15:08 Hx Obtained From: Patient Onset/Duration: Sudden Onset Initial Severity: Mild Chest Pain Location: Mid Sternal Character: Tightness - Risk Factors Pulmonary Embolism Risk Factors: Negative - Allergy/Home Medications Allergies/Adverse Reactions: Allergies Allergy/AdvReac Type Severity Reaction Status Date / Time Gabapentin AdvReac Stomach Verified 03/19/17 15:08 Cramps PACEMAKER - NO MRIs Allergy PACEMAKER Uncoded 03/19/17 15:08 - CONTRAINDICATED FOR MRIs Home Medications: Home Medications Diclofenac 1% GEL (NF) [Voltaren 1% GEL (NF)] 1 applic PRN 03/19/17 [History] PMH/Surg Hx/FS Hx/Imm Hx Previously Healthy: Yes Cardiovascular History: Cardiac Disease, Pacemaker/ICD - Surgical History Surgical History: Yes Surgery Procedure, Year, and Place: left knee ARTHROSCOPY, cataract, hernia repair; RIGHT SHOULDER ARTHOSCOPY 05/28/13, REMOVAL OF PIN IN LEFT KNEE 05/28/13 , ANGIOPLASTY(NO STENTS), LUMPS REMOVED FROM THROAT(BENIGN) 2013, Pacemaker 2014 ; Stent placement in artery 08/09/16 at [facility] [place] - Family History Known Family History: Positive: Cardiac Disease, Hypertension - Social History Alcohol Use: None Alcohol Amount: 3 per week Substance Use Type: Marijuana Substance Use Comment - Amount & Last Used: daily Smoking Status (MU): Heavy Every Day Tobacco Smoker Type: Cigarettes Amount Used/How Often: 1/2 - 1 PPD Have You Smoked in the Last Year: Yes Household Exposure Type: Cigarettes - Immunization History Most Recent Influenza Vaccination: fall 2015 Most Recent Pneumonia Vaccination: unknown Review of Systems Respiratory: Shortness Of Breath Cardiovascular: Chest Pain Is Patient Immunocompromised?: No All Other Systems Reviewed And Are Negative: Yes Physical Exam Triage Information Reviewed: Yes Appearance: Well-Appearing, Pain Distress - mild Vital Signs: Initial Vital Signs Temp 97.3 F 03/19/17 15:13 Pulse 87 03/19/17 15:13 Resp 18 03/19/17 15:13 BP 143/76 03/19/17 15:13 Pulse Ox 100 03/19/17 15:13 Vital Signs Reviewed: Yes Eye Exam: Normal ENT Exam: Normal Dental Exam: Normal Neck exam: Normal Neck: Positive: 1 Respiratory Exam: Normal Cardiovascular Exam: Normal Musculoskeletal Exam: Normal Neurological Exam: Normal Psychological Exam: Normal Skin Exam: Normal - Differential Diagnoses - Chest Pain Differential Diagnosis/HQI/PQRI: Acute FL, ACS, Angina, CHF - Clinical Impression Provider Diagnoses: Chest pain - Physician Notifications Discussed Patient Care With: sherif Urena at 1510 Discharge - Discharge Plan Condition: Guarded Disposition: [facility] Patient Education Materials: Chest Pain (ED) Referrals: Carroll Garcia MD [Primary Care Provider] -
== END 2017-03-19 15:20 | disposition short-term general hospital (02) ==
LOC: UCCORT 15:07
DX: R07.9 Chest pain, unspecified (principal); F17.210 Nicotine dependence, cigarettes, uncomplicated; F12.90 Cannabis use, unspecified, uncomplicated; Z88.8 Allergy status to other drugs, medicaments and biological substances; Z91.048 Other nonmedicinal substance allergy status
CPT/HCPCS: 93005; 99213; A9270-GY; G0463

== ENCOUNTER 2019-05-27 09:39 | Inpatient (IN) | payer OTHER ==
--- OUTSIDE RECORDS SUMMARY | 2019-05-27 09:54 | XMS REPORT | Continuity of Care Document ---
:1955 External Reference #:[id number] Author Name Petey Reyes PA (transmitted by agent of provider Blake Condon) Address [address], [address] [place] [address] Care Team Providers Name Role Phone Haim Blount MD - Orthopaedic Care Team Information Fish [employer] Maker [phone] Surgery Boogie Levin MD - Neurology Care Team Information Fish Rod Maker Alvaro Patton MD Care Team Information Fish Rod Maker [phone] Taylor Cedeno MD - Neurology Care Team Information Fish Rod Maker Carroll Garcia MD - Family Care Team Information Fish [employer] Maker Medicine Ellis Urbina MD Care Team Information Fish Rod Maker [phone] Problems Active Problems Provider Date Closed fracture of patella Mark Sol MD, FACS Onset: 03/12/2011 Open wound of knee and/or leg and/or Mark Sol MD, FACS Onset: 03/12 ankle Sprain of knee and leg Mark Sol MD, FACS Onset: 03/12/2011 Other Aftercare Involving Internal Mark Sol MD, FACS Onset: 2010 Fixation Device Arthralgia of the pelvic region and Mark Sol MD, FACS Onset: 2010 thigh Lumbosacral spondylosis without Mark Sol MD, FACS Onset: 05/21/2011 myelopathy Low back pain Mark Sol MD, FACS Onset: 05/21/2011 Displacement of lumbar intervertebral Lawsing, Mark F., MD, FACS Onset: disc without myelopathy Shoulder joint pain Mark Sol MD, FACS Onset: 04/05/2012 Arthralgia of the lower leg Mark Sol MD, FACS Onset: 04/05/2012 Disorder of shoulder Mark Sol MD, FACS Onset: 04/05/2012 Localized, primary osteoarthritis of Mark Sol MD, FACS Onset: 04/05 the shoulder region Enthesopathy Mark Sol MD, FACS Onset: 04/12/2012 Mixed hyperlipidemia Mark Torres MD, PhD Onset: 11/29/2013 Palpitations Alexia Foster., ANP Onset: 03/24/2014 Precordial pain Alexia Foster A., ANP Onset: 03/24/2014 Peripheral vascular disease Alexia Foster A., ANP Onset: 03/24/2014 Dizziness and giddiness Aniyah Fosterh A., ANP Onset: 03/24/2014 Tobacco user Alexia Foster A., ANP Onset: 03/24/2014 Chest pain Blake Condon M.D., Onset: 08/23/2016 FACC Complete atrioventricular block Blake Condon M.D., Onset: 08/23/2016 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., 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 Cardiac pacemaker in situ Blake Condon M.D., Onset: 04/27/2017 FACC Essential hypertension Blake Condon M.D., Onset: 05/16/2017 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., Onset: 05/16/2017 [place] coronary artery with FACC unspecified angina pectoris Social History Type Date Description Comments Sex Unknown Tobacco Use Start: Unknown Current Cigarette Smoker 1 Pack Daily ETOH Use Denies alcohol use Recreational Drug Use Regularly uses Marijuana Tobacco Use Start: Unknown Patient is a current smoker, smokes every day Smoking Status Reviewed: 04/18/19 Patient is a current smoker, smokes every day Exercise Type/Frequency Exercises sporadically Allergies, Adverse Reactions, Alerts Active Allergies Reaction Severity Comments Date Gabapentin stomach upset 09/26/2018 Inactive Allergies NKDA 03/10/2011 Medications Active Medications SIG Qnty Indications Ordering Date Provider Nicotrol 6-16 inhalations 168units Josh Dugan, 09/26/2018 10mg Inhaler daily for MD assistance with smoking cessation, for one month. Please teach on use. Acapella please provide 1 1units J44.9 Josh Dugan, 03/29/2018 [facility] [place]: MD copd use three times a day as needed to clear secretions. Escitalopram Oxalate take 1 tablet by 30tabs F41.9 Courtney Kirsten 08/10/2017 20mg mouth daily Simonetta, Tablets MSN, [employer] Metoprolol Succinate take 1 tablet by 30tabs R00.2 Courtney Kirsten 08/10/2017 ER mouth every Simonetta, 25mg Tablets ER 24HR evening MSN, [employer] Clopidogrel Bisulfate take 1 tablet by 30tabs R07.9 Roseanna, 07/30/2016 mouth once daily Blake Gasca, 75mg Tablets M.D., FACC Atorvastatin Calcium 1 by mouth every 90tabs E78.2 Courtney Kirsten 01/07/2014 40mg day Simonetta, Tablets MSN, [employer] Aspirin Ec 1 by mouth every 90tabs Unknown 81mg Tablets day DR Cyclobenzaprine HCL 1 by mouth three Unknown 10mg times a day as Tablets needed muscle spasms Ventolin HFA 1-2 puffs every Unknown 108(90Base) 4-6 hours as mcg/Act Aerosol needed Tylenol 2 tab by mouth Unknown 325mg Capsules three times per day as needed Diclofenac Sodium ER 1 by mouth every Unknown day with food 100mg Tablets ER 24HR Nitroglycerin place 1 tablet 25tabs Roseanna, 0.4mg (0.4 mg total) Blakecinthia Gasca, Tablets Sub under the tongue M.D., FACC every 5 (five) minutes as needed for chest pain Immunizations Description No Information Available Vital Signs Date Vital Result Comment 04/18/2019 1:55pm BP Systolic Sitting Left Arm 120 mmHg BP Diastolic Sitting Left Arm 78 mmHg Heart Rate 69 /min Respiratory Rate 18 /min Height 68.5 inches 5'8.50" Weight 196.00 lb BMI (Body Mass Index) 29.4 kg/m2 BSA (Body Surface Area) 2.04 m2 Oden body weight in kilograms 71 kg O2 % BldC Oximetry 100 % Ora 03/27/2019 2:10pm BP Systolic Sitting Left Arm 118 mmHg BP Diastolic Sitting Left Arm 80 mmHg Heart Rate 92 /min Respiratory Rate 18 /min Height 68.5 inches 5'8.50" Weight 195.00 lb BMI (Body Mass Index) 29.2 kg/m2 BSA (Body Surface Area) 2.03 m2 Oden body weight in kilograms 71 kg O2 Saturation Level with Exercise 93 % Results Test Acquired Date Facility Test Result H/L Range Note Blood Culture 03/27/2019 [facility] Blood Culture NO GROWTH: 1, [address] Aerobic FINAL <[place] [address] NOTE> [phone] Blood Culture Anaerobic NO GROWTH: FINAL <SEE NOTE> 3 Comprehensive 03/27/2019 [facility] Glucose 98 mg/dL Normal 74-106 Metabolic Panel [address] [place] [address] [phone] BUN 23 mg/dL High 7-18 Creatinine 1.1 mg/dL Normal 0.6-1.3 Glom Filtration Rate, Estimate >60 mL/min >60 If >60 mL/min >60 4 BUN/Creat 20.9 ratio Sodium 134 mmol/L Low 136-145 Potassium 4.0 mmol/L Normal 3.5-5.1 Chloride 104 mmol/L Normal 98-107 Carbon Dioxide 28 mmol/L Normal 21-32 Anion Gap 2 mEq/L Low 8-16 Calcium 9.6 mg/dL Normal 8.5-10.1 Total Protein 8.6 g/dL High 6.4-8.2 Albumin 4.5 g/dL Normal 3.4-5.0 Globulin 4.1 g/dL Normal 1.9-4.3 Alb/Glob 1.1 ratio Bilirubin,Total 0.5 mg/dL Normal 0.2-1.0 Sgot/Ast 12 U/L Low 15-37 5 SGPT/Alt 16 U/L Normal 12-78 Alkaline Phosphatase 98 U/L Normal 45-117 Reflex add FT3? Y Reflex add FT4? Y CBC W/Automated 03/27/2019 [facility] White Blood 11.6 K/uL High 3.4-10.[address] [place] [address] [phone] Red Blood Count 5.14 M/uL Normal 4.20-5.80 Hemoglobin 15.5 gm/dL Normal 12.8-17.0 Hematocrit 45.7 % Normal 38.0-48.0 Mean Cell Volume 88.9 fl Normal 80.0-96.0 Mean Corpuscular HGB 30.2 pg Normal 27.0-33.0 Mean Corpuscular HGB Conc 33.9 g/dL Normal 31.7-36.0 Platelet Count 117 K/uL Low 155-360 Red Cell Distri Width SD 44.1 fl Normal 36-51 Red Cell Distri Width %CV 13.4 % Normal 11.6-15.8 Mean Platelet Volume 11.6 fl High 6.6-10.6 Neut% 68.3 % Normal 33.0-73.0 Lymph % 20.6 % Normal 20.0-42.0 Young % 7.1 % Normal 0.0-10.0 Eo% 2.4 % Normal 0.0-6.6 Bas% 1.1 % Normal 0.0-1.1 Immature Grans 0.5 % Normal 0.0-5.0 NRBC % 0.0 /100WBC < 10/ 100 WBC Neut# 7.91 K/uL High 1.8-7.0 Lymph # 2.38 K/uL Normal 1.0-4.0 Young # 0.82 K/uL High 0.0-0.8 Eos # 0.28 K/uL Normal 0.0-0.5 Baso # 0.13 K/uL High 0.0-0.1 Immature Grans Absolute 0.06 K/uL NRBC # 0.00 K/uL Magnesium 03/27/2019 [facility] Magnesium 1.9 mg/dL Normal 1.8-2.[address] [place] [address] [phone] Reflex add FT3? Y Reflex add FT4? Y TSH Reflex 03/27/2019 [facility] Thyroid Stim 0.73 uIU/mL Normal 0.30-4.20 FT4 And/Or [address] Hormone FT3 [place] [id number] [phone] Reflex add FT3? Y Reflex add FT4? Y C-Reactive 03/27/2019 [facility] C-Reactive < 3.0 <3.0 Protein,Quant [address] Protein,Quant mg/L [place] [id number] [phone] Reflex add FT3? Y Reflex add FT4? Y Laboratory 03/27/2019 [facility] Sedimentation 44 mm/hr Normal 2-45 6 test finding [address] [place] [id number] [phone] CK 03/27/2019 [facility] CK 105 U/L Normal 39-[address] [place] [id number] [phone] Reflex add FT3? Y Reflex add FT4? Y Blood Culture 03/27/2019 [facility] Blood Culture NO GROWTH: FINAL [address] Aerobic <SEE NOTE> [place] [id number] [phone] Blood Culture Anaerobic NO GROWTH: FINAL <SEE NOTE> 8 Laboratory test finding 03/27/2019 [facility] Slide Review TNP [address] [place] [id number] [phone] 1 R53.83 2 NO GROWTH: FINAL REPORT 3 NO GROWTH: FINAL REPORT 4 Note: Persistent reduction for 3 months or more in an eGFR <60 mL/min/1.73 m2 defines CKD. Patients with eGFR values >/=60 mL/min/1.73 m2 may also have CKD if evidence of persistent proteinuria is present. The original MDRD equation for estimated GFR is not valid for patients less than 18 years of age. Additional information may be found at www.kdoqi.org. 5 Values below the stated reference ranges of AST and ALT can be seen in normal populations. Clinical correlation is suggested. 6 This result was obtained with an ESR method that is not based on the standard Westergren Method. When comparing results obtained from the traditional Westergren ESR and this method it is important to refer to the reference range for each method. Method: Capillary Photometry 7 NO GROWTH: FINAL REPORT 8 NO GROWTH: FINAL REPORT Procedures Date Code Description Status 04/04/2019 03714 Echocardiogram Complete Completed 03/27/2019 68617 EKG-Tracing And Report Completed 10/31/2018 91947 Dual Pacemaker Programming Anayisis, Review And Report Completed Medical Devices Description No Information Available Encounters Type Date Location Provider Dx Diagnosis Office Visit 04/18/2019 Cardiology Office EricPetey I25.10 Athscl heart 2:00p B., PA disease of [place] coronary artery w/o ang pctrs Z95.0 Presence of cardiac pacemaker I73.9 Peripheral vascular disease, unspecified I10 Essential (primary) hypertension E78.2 Mixed hyperlipidemia F17.210 Nicotine dependence, cigarettes, uncomplicated Office Visit 03/27/2019 2:00p Cardiology Office EricDiptilyss R53.83 Other fatigue B., PA R68.83 Chills (without fever) Z95.0 Presence of cardiac pacemaker I25.10 Athscl heart disease of [place] coronary artery w/o ang pctrs I73.9 Peripheral vascular disease, unspecified I10 Essential (primary) hypertension E78.2 Mixed hyperlipidemia Assessments Date Code Description Provider 04/18/2019 I25.10 Atherosclerotic heart disease of Dipti Reyeslyss B., PA [place] coronary artery without angina pectoris 04/18/2019 Z95.0 Presence of cardiac pacemaker Dipti Reyeslyss B., PA 04/18/2019 I73.9 Peripheral vascular disease, Eric Marlyss B., PA unspecified 04/18/2019 I10 Essential (primary) hypertension Eric Marlyss B., PA 04/18/2019 E78.2 Mixed hyperlipidemia Eric, Marlyss B., PA 04/18/2019 F17.210 Nicotine dependence, cigarettes, Eric Marlyss B., PA uncomplicated 04/04/2019 I25.10 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.D. , [place] coronary artery without angina FACC pectoris 04/04/2019 Z95.0 Presence of cardiac pacemaker Blake Condon M.D., FACC 03/27/2019 R53.83 Other fatigue Eric Marlyss B., PA 03/27/2019 R68.83 Chills (without fever) Eric Marlyss B., PA 03/27/2019 Z95.0 Presence of cardiac pacemaker Eric Marlyss B., PA 03/27/2019 I25.10 Atherosclerotic heart disease of Petey Reyes PA [place] coronary artery with 03/27/2019 I73.9 Peripheral vascular disease, Petey Reyes PA unspecified 03/27/2019 I10 Essential (primary) hypertension Petey Reyes PA 03/27/2019 E78.2 Mixed hyperlipidemia Petey Reyes PA 10/31/2018 Z95.0 Presence of cardiac pacemaker Blake Condon M.D., [facility] 10/31/2018 Z95.0 Presence of cardiac pacemaker Petey Reyes, JOSEPH 10/31/2018 I44.2 Atrioventricular block, complete Blake Condon M.D., [facility] 10/31/2018 I44.2 Atrioventricular block, complete Petey Reyes PA 10/31/2018 R00.2 Palpitations Blake Condon M.D., [facility] 10/31/2018 R00.2 Palpitations Petey Reyes PA Plan of Treatment Future Appointment(s):10/19/2019 10:40 am - Blake Condon M.D., [facility] at Cardiology [id number]/15/2019 10:15 am - Petey Reyes PA at Cardiology [id number]/18/2019 - Petey Reyes, PAI25.10 Atherosclerotic heart disease of [place] coronary artery without angina pectorisComments:Continue with medical management. No changes.Z95.0 Presence of cardiac pacemakerComments:Next device check is scheduled for April.I73.9 Peripheral vascular disease, unspecifiedComments:Monitor.I10 Essential (primary) hypertensionComments: Monitor. No changes.E78.2 Mixed hyperlipidemiaComments:Will need to have total cholesterol <200 and LDL <70.F17.210 Nicotine dependence, cigarettes , uncomplicatedComments:Told to stop smoking given the CAD and PVD. Offered help, but patient does not want help at this time.AllFollow up:6 months Functional Status Functional Condition Comment Date Status Independent with all ADL's Active Hearing Aid in Both ears Active Cpap Active Pacemaker Active Mental Status Description No Information Available Referrals Description No Information Available
--- NOTE | 2019-05-27 09:59 | ED ---
HPI Chest Pain - HPI Summary HPI Summary: Patient is a 63 y/o M presenting to the ED via EMS for a chief complaint of diffuse chest pain that radiates to the left arm. Patient is present with his domestic partner. Patient describes the chest pain as a tight and cramping sensation. He notes weakness in the right UE and right side of the body for the last 4-5 days, bilateral LE edema more on the right than left, intermittent cold and hot sensation in the bilateral LE, numbness and paresthesia of the back , right UE, and bilateral LE, diaphoresis, neck pain, and a 30 pound weight loss in the last month. He describes the neck pain as a pinch that has worsened in the last 2 months. Patient has had difficulty ambulating due to muscle spasms diffuse throughout the body. Patient's domestic partner also notes the patient has lower back pain, difficulty swallowing, shortness of breath, and vomiting for the last 3 weeks. For the last 2-3 days, he had constipation that resolved after taking a laxative. Patient has also had recent falls, the most recent 2 days ago, and has ecchymosis of the right arm and back. PMHx is significant for CAD, HTN, PVD, COPD, HLD, arthritis, DDD, and hernia. PSHx is significant for stent placement and pacemaker placement for bradycardia. He sees his PCP in [place], [place]. - History of Current Complaint Chief Complaint: EDChestPainROMI Time Seen by Provider: 05/27/19 09:42 Hx Obtained From: Patient, Family/[employer] - Domestic partner Onset/Duration: Atraumatic, Still Present Timing: Constant Initial Severity: Severe Current Severity: Severe Pain Intensity: 8 Pain Scale Used: 0-10 Numeric Chest Pain Location: Diffuse Chest Pain Radiates: Yes Chest Pain Radiates To:: Arm - Left Character: Tightness, Other: - Cramping Aggravating Factor(s): Nothing Alleviating Factor(s): Nothing Associated Signs and Symptoms: Positive: Chest Pain, Numbness - Back, right UE, bilateral LE, Tingling - Back, right UE, bilateral LE, Weakness - Right UE and right side of the body, Shortness of Breath, Swelling - Bilateral LE, more on the right than left, Diaphoresis, Back Pain - Lower, Vomiting, Edema - Bilateral LE, more on the right than left - Additional Pertinent History Primary Care Physician: JUD - Allergy/Home Medications Allergies/Adverse Reactions: Allergies Allergy/AdvReac Type Severity Reaction Status Date / Time gabapentin Allergy Stomach Verified 05/27/19 10:56 Cramps PACEMAKER - NO MRIs Allergy PACEMAKER Uncoded 10/02/18 11:58 - CONTRAINDICATED FOR MRIs Home Medications: Home Medications Diclofenac Sodium [Diclofenac Sodium ER] 100 mg PO DAILY 05/27/19 [History Confirmed 05/27/19] PMH/Surg Hx/FS Hx/Imm Hx Previously Healthy: Yes Endocrine/Hematology History: Denies: Hx Diabetes, Hx Systemic Lupus Erythematosus Cardiovascular History: Reports: Hx Angina, Hx Auto Implanted Cardiovert Defib - Pacemaker, Hx Coronary Artery Disease, Hx Hypercholesterolemia, Hx Hypertension, Hx Pacemaker/ICD - NO MRIs AT THIS TIME, Other Cardiovascular Problems/Disorders - Stent placed in artery 08/09/16 Denies: Hx Congestive Heart Failure, Hx Myocardial Infarction, Hx Valvular Heart Disease Respiratory History: Reports: Hx Chronic Obstructive Pulmonary Disease (COPD), Hx Sleep Apnea, Other Respiratory Problems/Disorders - COPD Denies: Hx Asthma GI History: Reports: Other GI Disorders - Hernia History: Reports: Other Problems/Disorders - KIDNEY STONES Denies: Hx Dialysis, Hx Renal Disease Musculoskeletal History: Reports: Hx Arthritis, Hx Back Problems, Hx Fibromyalgia, Hx Scoliosis Denies: Hx Rheumatoid Arthritis Sensory History: Reports: Hx Contacts or Glasses, Hx Hearing Aid Denies: Hx Legally Blind, Hx Deafness Opthamlomology History: Reports: Hx Contacts or Glasses Denies: Hx Legally Blind EENT History: Denies: Hx Deafness Neurological History: Reports: Other Neuro Impairments/Disorders - TIA SYMPTOMS , CHRONIC QUAN, cognitive deficits, fibromyalgia Psychiatric History: Reports: Hx Anxiety Denies: Hx Panic Disorder - Cancer History Hx Chemotherapy: No - Surgical History Surgical History: Yes Surgery Procedure, Year, and Place: left knee ARTHROSCOPY, cataract, hernia repair; RIGHT SHOULDER ARTHOSCOPY 05/28/13, REMOVAL OF PIN IN LEFT KNEE 05/28/13 , ANGIOPLASTY(NO STENTS), LUMPS REMOVED FROM THROAT(BENIGN) 2013, Pacemaker 2014 ; Stent placement in artery 08/09/16 [place] [facility] Infectious Disease History: No Infectious Disease History: Denies: Traveled Outside the [place] in Last 30 Days - Family History Known Family History: Positive: Cardiac Disease, Hypertension - Social History Occupation: Disabled Lives: With Family Alcohol Use: None Alcohol Amount: 1 drink per week Hx Substance Use: Yes Substance Use Type: Reports: Marijuana Substance Use Comment - Amount & Last Used: tramadol and lyrica Hx Tobacco Use: Yes Smoking Status (MU): Current Every Day Smoker Type: Cigarettes Amount Used/How Often: 1/2 - 1 PPD Have You Smoked in the Last Year: Yes Review of Systems Positive: Skin Diaphoresis, Other - Positive weight loss Positive: Other - Positive difficulty swallowing Positive: Chest Pain Positive: Shortness Of Breath Positive: Vomiting Positive: Myalgia - Neck, lower back, left arm that radiates from the chest, muscle spasms diffuse throughout the body, Edema - Bilateral LE, more on the right than left, Other - Positive intermittent cold and hot sensation in the bilateral LE Positive: Bruising - Right arm and back Positive: Weakness - Right UE and right side of the body, Paresthesia - Back, right UE, and bilateral LE, Numbness - Back, right UE, and bilateral LE All Other Systems Reviewed And Are Negative: Yes Physical Exam - Summary Physical Exam Summary: Constitutional: Well-developed, Well-nourished, Alert. Uncomfortable. Skin: Warm, diaphoretic, ecchymosis right chest wall HENT: Normocephalic; Atraumatic, Midline cervical tenderness. Eyes: Conjunctiva normal Neck: Musculoskeletal ROM normal neck. (-) JVD, (-) Stridor, (-) Nuchal rigidity Cardio: Rhythm regular, rate normal, Heart sounds normal; Intact distal pulses. Doppler signal radial and dorsalis pedis pulses present. Pulmonary/Chest wall: Effort normal. (-) Respiratory distress, (-) Wheezes, (-) Rales Abd: Soft, (-) tenderness, (-) Distension, (-) Guarding, (-) Rebound Musculoskeletal: (-) Edema. Mild tenderness of the thoracic and lumbar spine, ecchymosis of the posterior chest wall. Cool extremities. Lymph: (-) Cervical adenopathy Neuro: Alert, Oriented x3. 3/5 strength of the RUE and 2/5 strength in RLE, decreased sensation to the right UE, back, and legs. Paresthesias to hands, feet Psych: Mood and affect Normal Triage Information Reviewed: Yes Vital Signs On Initial Exam: Initial Vitals Temp Pulse Resp BP Pulse Ox 95.1 F 87 18 122/71 0 05/27/19 09:46 05/27/19 09:46 05/27/19 09:46 05/27/19 09:46 05/27/19 09:46 Vital Signs Reviewed: Yes - Judy Coma Scale Best Eye Response: 4 - Spontaneous Best Motor Response: 6 - Obeys Commands Best Verbal Response: 5 - Oriented Coma Scale Total: 15 Procedures - Sedation Patient Received Moderate/Deep Sedation with Procedure: No Diagnostics - Vital Signs Vital Signs Temp Pulse Resp BP Pulse Ox 05/27/19 09:46 95.1 F 87 18 122/71 0 - Laboratory Result Diagrams: 05/27/19 09:53 05/27/19 09:53 Lab Statement: Any lab studies that have been ordered have been reviewed, and results considered in the medical decision making process. - Radiology Chest X-ray Radiology Interpretation Completed By: Radiologist Summary of Radiographic Findings: Chest X-ray IMPRESSION: No radiographic evidence for acute cardiopulmonary abnormality on this portable chest x-ray. Reviewed by Dr. Kelsey. - CT Brain CT CT Interpretation Completed By: Radiologist Summary of CT Findings: Brain CT IMPRESSION: 1. No calvarial fracture or acute intracranial abnormality. 2. Paranasal sinus disease involving the right maxillary sinus and anterior ethmoid air cells. 3. Multilevel degenerative changes of the cervical spine without evidence of acute fracture or dislocation. Reviewed by Dr. Kelsey. Cervical Spine CT CT Interpretation Completed By: Radiologist Summary of CT Findings: Cervical Spine CT IMPRESSION: 1. No calvarial fracture or acute intracranial abnormality. 2. Paranasal sinus disease involving the right maxillary sinus and anterior ethmoid air cells. 3. Multilevel degenerative changes of the cervical spine without evidence of acute fracture or dislocation. Reviewed by Dr. Kelsey. Chest/Abdomen/Pelvis CTA CT Interpretation Completed By: Radiologist Summary of CT Findings: Chest/Abdomen/Pelvis CTA IMPRESSION: 1. No CT evidence of pathologic aneurysmal dilatation or acute dissection of the aorta. 2. There is widespread mixed attenuation atherosclerosis causing various degrees of stenosis described under the angiographic portion of the report above. 3. Additional chronic and degenerative changes described in the body the report. Reviewed by Dr. Kelsey. - EKG 09:43 Cardiac Rate: NL - 80 BPM EKG Rhythm: Sinus Rhythm ST Segment: Normal Ectopy: None Summary of EKG Findings: An EKG at 09:43 reveals normal sinus rhythm with 80 BPM , left anterior fascicular block, T wave inversions in V1, nml axis, nml intervals. No STEMI. No acute changes. Compared to 03/19/17, no significant change. Reviewed and interpreted by Dr. Kelsey. Chest Pain Course/Dx - Course Course Of Treatment: 63 y/o male w hx CAD, obesity, degenerative disc disease, pacemaker presenting with multiple complaints. - Reporting dyspnea, chest pain , tingling in his hands as well as generalized weakness. - physical exam with weakness the right side as well as cool extremities, w Doppler signal pulses. Patient has a known history of peripheral vascular disease. - regarding chest pain, EKG unchanged troponin negative x2. CTA does not show any acute abnormality's. Patient has extensive cardiac history and would benefit from telemetry and serial troponins. - regariding neck pain and weakness, a CT of the cervical spine was obtained given right-sided weakness and history of neck pain, no acute abnormalities of the cervical spine. CT brain does not show any acute abnormalities. - Patient saw reporting profound weakness of the right side, difficulty swallowing and chewing, concern for a neurologic process involving the bulbar muscles. Plan for admission to hospital, possible neurologic consult. Patient able to get MRI this time secondary to pacemaker - Diagnoses Provider Diagnoses: Chest pain, Weakness - Provider Notifications Discussed Care Of Patient With: Noble Palacio - At 12:05, patients case was reviewed by Dr. Palacio who states that he is available to see the patient in outpatient services. At 13:40, Dr. Michelle Clifford agrees to admit the patient to [facility] with a diagnosis of chest pain and weakness. Time Discussed With Above Provider: 12:05 Instructed by Provider To: Admit As Inpatient Discharge ED - Sign-Out/Discharge Documenting (check all that apply): Patient Departure - Admit - Discharge Plan Condition: Stable Disposition: ADMITTED TO [facility] - Billing Disposition and Condition Condition: STABLE Disposition: Admitted to [facility] - Attestation Statements Document Initiated by Scribe: Yes Documenting Scribe: Taylor Flores Provider For Whom Scribe is Documenting (Include Credential): Carlos Kelsey MD Scribe Attestation: I, Taylor Flores, scribed for Carlos Kelsey MD on 05/27/19 at 1649. Scribe Documentation Reviewed: Yes Provider Attestation: The documentation as recorded by the scribe, Taylor Flores accurately reflects the service I personally performed and the decisions made by me, Carlos Kelsey MD Status of Scribe Document: Viewed
[2019-05-27 10:10] LABS: Hematocrit 41 % (42-52); Hemoglobin 14.1 g/dL (14.0-18.0); Mean Corpuscular HGB Conc 34 g/dL (31-36); Mean Corpuscular Hemoglobin 30 pg (27-31); Mean Corpuscular Volume 88 fL (80-94); Mean Platelet Volume 10.9 fL (7.4-10.4); Platelet Count 70 10^3/uL (150-450); Red Blood Count 4.67 10^6 /uL (4.18-5.48); Red Cell Distribution Width 14 % (10-15); White Blood Count 8.8 10^3/uL (3.5-10.8)
[2019-05-27 10:11] LABS: INR 0.92 (0.82-1.09)
[2019-05-27 10:20] LABS: Albumin 4.4 g/dL (3.2-5.2); Albumin/Globulin Ratio 1.4 (1-3); Calcium 9.9 mg/dL (8.6-10.3); EGFR Non-African American 70.3 (>60); Globulin 3.1 g/dL (2-4); Potassium 4.5 mmol/L (3.5-5.0); Total Bilirubin 0.8 mg/dL (0.2-1.0); Total Protein 7.5 g/dL (6.4-8.9)
[2019-05-27 11:06] LABS: ABS Basophils 0.1 10^3/ul (0-0.2); ABS Eosinophils 0.2 10^3/ul (0-0.6); ABS Monocytes 0.7 10^3/ul (0-0.8); ABS Neutrophils 5.8 10^3/ul (1.5-7.7); Eosinophil % 2.4 %; Lymphocyte % 22.7 %; Nucleated Red Blood Cells % 0.1
[2019-05-27] MEDS ORDERED: Iohexol 350* (CONTRAST) 500 ML MDV IV ONE (11:49)
[2019-05-27 15:00] LABS: Magnesium 1.9 mg/dL (1.9-2.7)
[2019-05-27 15:12] LABS: TSH (Thyroid Stimulating Horm) 0.49 mcIU/mL (0.34-5.60)
[2019-05-27] MEDS ORDERED: Acetaminophen TAB* 325 MG PO PRN (15:31)
[2019-05-27] MEDS ORDERED: Magnesium Hydroxide LIQ* 30 ML UDC PO PRN (15:31)
[2019-05-27] MEDS ORDERED: Senna TAB 8.6 mg* TAB PO PRN (15:31)
[2019-05-27] MEDS ORDERED: Albuterol HFA INHALER* 8 gm MDI INH PRN (15:37)
[2019-05-27] MEDS ORDERED: ALPRAZolam TAB* 0.25 MG PO PRN (15:38)
--- NOTE | 2019-05-27 18:47 | HP ---
CC: Dr. Garcia* HISTORY AND PHYSICAL: DATE OF ADMISSION: 05/27/19 PROVIDER: Lynne Waters NP PRIMARY CARE PROVIDER: Dr. Garcia. ATTENDING PHYSICIAN WHILE IN THE HOSPITAL: Dr. Michelle Clifford* (dictated by Lynne Waters NP). CHIEF COMPLAINT: Weakness. HISTORY OF PRESENT ILLNESS: Mr. Thrasher is a 63-year-old male with a past medical history significant for peripheral vascular disease; coronary artery disease, status post stent and pacemaker; anxiety; hypertension; hyperlipidemia; fibromyalgia; who presented to the emergency room with multiple complaints including weakness, difficulty swallowing, muscle twitching, muscle weakness, right arm and right leg weakness that has been occurring for several weeks to a month. The patient reports that over the past month he has developed progressively worsening weakness and difficulty swallowing, worse over the past week and a half. The patient reports that he has had 7 falls in the last month. He reports a feeling of his skin feeling like he has got pins and needles x1 month. He also reports that he feels like he has lost control of his abdominal muscles and that has been occurring for the past 2 weeks. He does report severe muscle twitching x1 week and worsening constipation times last 2 weeks. He does report he has bowel movements every 2 to 3 days. The patient does report that he fell approximately 2 weeks ago injuring his right ankle. He complains of swelling in the right ankle. The patient does report that 3 to 4 days ago he was able to walk with a cane and now he is unable to walk. He does report that times the last month he has been dragging his right leg and does not have the muscle coordination or strength to lift his right leg. Due to his progressive worsening of symptoms, the patient reported to the emergency room for further evaluation. He also reports that he has had worsening anxiety and that his anxiety has been out of control. The patient does report that he stopped taking Lexapro 20 mg approximately 2 months ago. He also reports that he stopped taking his Lyrica 100 mg 1 month ago. He does report that he weaned from 150 mg to 100 mg and then stopped taking his Lyrica. The patient also reports that over the past 10 days he has had increased difficulty with swallowing and he does report increased difficulty with muscle coordination. He does report times about 3 weeks he has been unable to hold the cigarette in his right hand. He is right-hand dominant. He does report that he has episodes of his muscles start twitching and then tighten. He does feel like the muscles tighten in his upper chest making it difficult for him to take deep breath. While in the emergency room, the patient had routine lab work drawn. He was found to be thrombocytopenic with a platelet count of 70, which has been chronic since 2015. He had a CT of the chest, abdomen and pelvis, which does not show any acute findings. He had a CT of the brain that did not show any acute findings. Due to the patient's progressive muscle weakness and difficulty with swallowing, Hospital Medicine was asked to see and evaluate him for admission. PAST MEDICAL HISTORY: Significant for: 1. Peripheral vascular disease. 2. Coronary artery disease, status post stent and pacemaker placement. 3. Anxiety. 4. Hypertension. 5. Hyperlipidemia. 6. Fibromyalgia. 7. Peripheral neuropathy PAST SURGICAL HISTORY: 1. Pacemaker placement. 2. Cardiac stent placement. 3. Cataract surgery. 4. Right shoulder surgery. 5. Left knee surgery. HOME MEDICATIONS: Include: 1. Diclofenac 100 mg p.o. daily. 2. Albuterol HFA inhaler 1 to 2 puffs every 4 hours as needed for shortness of breath. 3. Acetaminophen 325 mg p.o. t.i.d. p.r.n. 4. Metoprolol succinate 25 mg p.o. daily. 5. Flexeril 10 mg p.o. t.i.d. p.r.n. 6. Clopidogrel 75 mg p.o. daily. 7. Atorvastatin 40 mg p.o. daily. 8. Aspirin 81 mg p.o. daily. 9. Nitroglycerin 0.4 mg as needed for chest pain. 10. Nicotine 10 mg nasal spray. 11. Medical marijuana. ALLERGIES: To GABAPENTIN. FAMILY HISTORY: Father with a history of rheumatic heart disease, from an NV at age 52. Mother with a valve replacement and is alive and well at the age of 92. No reported history of diabetes or cancer in the family. SOCIAL HISTORY: The patient smokes half a pack per day. Denies any alcohol. He does report daily marijuana use. He is disabled. He is , but lives with his significant other. Miranda Pitt, his significant other, is his surrogate decision maker in the event he is unable to make his own decisions. He is a full code. REVIEW OF SYSTEMS: He denies any fevers or unintended weight loss. He does report cold chills. Currently denies any chest pain or edema. No cough or hemoptysis. He does feel short of breath, feels like he cannot take a deep breath due to muscle tightness. He does report some nausea, but no diarrhea or abdominal pain. No gross hematuria or dysuria. He does report urinary frequency. He does report generalized weakness, muscle twitching, right-sided weakness worse than left, decreased sensation in all extremities, difficulty with swallowing at times. Denies any visual complaints. Denies any arthralgias or myalgias. He does have his left great toe with an open ulceration noted to the tip of the toe. He does have purple discoloration and dried scaled skin. He does have purple blister noted to the right fifth toe, and the base of the left fifth digit is with abrasion. Denies any psychosis. He does report worsening anxiety. PHYSICAL EXAMINATION GENERAL: At this time, Mr. Thrasher is a 63-year-old male. He is alert and oriented x3. VITAL SIGNS: Blood pressure 137/86, heart rate 94, respirations 15, O2 saturation 97%, temperature was 98.1. HEENT: Head is atraumatic, normocephalic. Eyes: EOMs are intact. Sclerae anicteric and not pale. Oral mucosa is moist. He has no tongue fasciculations. NECK: Supple. LUNGS: Clear to auscultation bilaterally. No wheezes, rales, or rhonchi. CARDIAC: S1, S2. Regular rate and rhythm. No murmurs, rubs, or gallops. ABDOMEN: Soft and nontender. Bowel sounds are active x4. EXTREMITIES: He does have limited range of motion to his right arm and right leg with slight muscle atrophy noted in the right calf. He does have occasional muscle spasms noted to the upper and lower extremities. Left hand that contracts with the episodes of muscle spasms. Episode of muscle spasms mainly on the left side. NEUROLOGIC: He is awake, alert, oriented x3. Speech is clear. Smile is equal. Tongue is midline without fasciculation. There is no facial asymmetry. Right handgrip is weaker than the left. Right leg push-pull is weaker than the left. Leg movement on the right is weaker than the left. Sensation is diminished throughout. The patient is unable to perform [id number]. Patient does have rigid movement SKIN: He does have an open area noted to his left great toe. He does have a purple blister noted to his right fifth toe digit and an open abrasion noted to the base of his left fifth finger. He does have ecchymosis noted to his left thigh. DIAGNOSTIC STUDIES/LAB DATA: WBCs are 8.8, RBCs 4.67, hemoglobin 14.1, hematocrit is 41, platelet count is 70. INR was 0.92. Sodium 139, potassium 4.5, chloride 104, carbon dioxide was 27, anion gap was 8, BUN was 16, creatinine 1.07, glucose was 95, calcium 9.9, magnesium 1.9. Total bilirubin 0.80, ASTs were 18, ALTs were 14, alkaline phosphatase was 82. Troponin was 0.00 x2. TSH was 0.49. Vitamin B12 was 610. The patient had an electrocardiogram, which showed sinus rhythm at a rate of 80 with left anterior fascicular block, which is evident on prior EKGs. He had a CT of the brain, radiologist's impression: No fracture or acute intracranial abnormality. Para-sinus disease involving the right maxillary sinus and anterior ethmoid air cells. Multilevel degenerative changes in the cervical spine without evidence of acute fracture or dislocation. He had a cervical spine CT, radiologist's impression: Multilevel degenerative changes in the cervical spine without evidence of acute fracture or dislocation. He had a chest x-ray, radiologist's impression: No radiographic evidence of acute cardiopulmonary abnormality. He had a CT of the chest, abdomen and pelvis, radiologist's impression: No CT evidence of pathological aneurysmal dilation or acute dissection of the aorta. There is widespread mixed attenuation of atherosclerosis causing various degrees of stenosis. The patient does have a pulmonary nodule measuring 1 cm in the axial plane, 4 mm in the cephalocaudal dimension, unchanged since August of 2016. Lungs are otherwise clear. No pleural effusions. There is no mediastinal or hilar lymphadenopathy. There are degenerative changes of the thoracic and lumbar spine including loss of intervertebral disk height as well as multilevel vacuum disk phenomenon. ASSESSMENT AND PLAN: Mr. Thrasher is a 63-year-old male with a past medical history significant for peripheral vascular disease; coronary artery disease, status post stent and pacemaker placement; anxiety; hypertension; hyperlipidemia ; fibromyalgia; who presented to the emergency room with complaints of generalized weakness times approximately 1 month with worsening symptoms over the past week. He will be admitted under observation for: 1. Weakness. It is unclear the source of his weakness at this time. The patient does have generalized weakness right-sided greater than left with some slight muscle atrophy in the right calf. He reports of dragging his right leg with ambulation x1 month. The patient also reports difficulty with breathing, feeling like he cannot take a deep breath due to the muscle twitching, muscle tightness and muscle weakness in his chest, as well as difficulty swallowing. Reports he is unable to hold a cigarette in his right hand anymore due to weakness. The patient did have CT of the brain that shows no acute intracranial abnormality. He is unable to get an MRI due to his pacemaker placement. I have consulted Neurology, who will see the patient in consultation tomorrow. Further recommendations based on Neurology's consultation. Within the differential could be underlying undiagnosed neuromuscular disorder such as ALS or progression of his chronic peripheral neuropathy. I will get PT and OT evaluation. Could consider consult to psychiatry fir psychosomatic component to the weakness if no acute pathology is found. 2. Peripheral vascular disease. The patient should continue on aspirin and Plavix as previously prescribed. 3. History of coronary artery disease. The patient will continue on metoprolol , aspirin, and Plavix as previously prescribed. 4. Anxiety. The patient is not currently taking any medications for his anxiety. Patient reports that his anxiety has been out of control and has been experiencing increased anxiety. I will give him a one-time dose of Xanax as needed for severe anxiety. 5. Hyperlipidemia. He will continue on atorvastatin 40 mg p.o. daily. 6. Difficulty swallowing/dysphagia. The patient will have a bedside nursing swallow evaluation and we will get a formal swallow evaluation from Speech Therapy in the AM . If he passes bedside swallow eval, he can have a heart- healthy, caffeine-okay diet. 7. Right ankle pain. I will get an x-ray of the right ankle as the patient does report he had a fall approximately 2 weeks ago to rule out any acute pathology. 8. Thrombocytopenia. The patient does have a platelet count of 70. Thrombocytopenia is chronic since 2015, but is slightly below his average. Will continue to monitor. 9. FEN: He can have a heart-healthy, caffeine okay diet after passing his dysphagia screen. 10. Code status: He is a full code. 11. DVT prophylaxis: I will place him on SCDs as the patient is thrombocytopenic with a platelet count of 70. TIME SPENT: Time spent on this admission was 60 minutes, greater than half that time was spent at the bedside reviewing events leading thus far to his hospitalization, performing physical exam, and reviewing my plan of care. I have discussed this with my attending, Dr. Michelle Clifford; she is in agreement with my plan. LYNNE WATERS, FOOTWE[employer] SALES LEADER [id number]/CPS #: [id number] PATRICIO
[2019-05-27 19:26] LABS: Urine Appearance Cloudy; Urine Bilirubin Negative (Negative); Urine Blood Negative (Negative); Urine Color Yellow; Urine Glucose Negative (Negative); Urine Ketones Negative (Negative); Urine Nitrite Negative (Negative); Urine Protein Negative (Negative); Urine Specific Gravity 1.047 (1.010-1.030); Urine Urobilinogen Negative (Negative)
[2019-05-27] MEDS ORDERED: traMADol TAB* 50 MG PO PRN (20:38)
[2019-05-27] MEDS: Cyclobenzaprine TAB* 10 MG PO PRN (21:13)
[2019-05-28 06:27] LABS: ABS Basophils 0.1 10^3/ul (0-0.2); ABS Eosinophils 0.2 10^3/ul (0-0.6); ABS Lymphocytes 1.8 10^3/ul (1.0-4.8); ABS Monocytes 0.7 10^3/ul (0-0.8); ABS Neutrophils 6.4 10^3/ul (1.5-7.7); Eosinophil % 2.3 %; Hematocrit 41 % (42-52); Hemoglobin 13.8 g/dL (14.0-18.0); Lymphocyte % 19.2 %; Mean Corpuscular HGB Conc 34 g/dL (31-36); Mean Corpuscular Hemoglobin 31 pg (27-31); Mean Corpuscular Volume 91 fL (80-94); Mean Platelet Volume 10.8 fL (7.4-10.4); Nucleated Red Blood Cells % 0.1; Platelet Count 85 10^3/uL (150-450); Red Cell Distribution Width 14 % (10-15); White Blood Count 9.1 10^3/uL (3.5-10.8)
[2019-05-28 06:30] LABS: BUN/Creatinine Ratio 18.1 (8-20); Calcium 9.1 mg/dL (8.6-10.3); EGFR Non-African American 94.2 (>60)
[2019-05-28 07:29] LABS: Potassium 4.3 mmol/L (3.5-5.0)
[2019-05-28] MEDS: Cyclobenzaprine TAB* 10 MG PO PRN ×2 (08:24→16:12)
[2019-05-28] MEDS ORDERED: Aspirin 81 mg CHEW TAB* 81 MG TAB.CHEW PO SCH (09:00)
[2019-05-28] MEDS ORDERED: Atorvastatin* 40 MG TAB PO SCH (09:00)
[2019-05-28] MEDS ORDERED: Clopidogrel TAB* 75 MG PO SCH (09:00)
[2019-05-28] MEDS ORDERED: Metoprolol Succinate XL TAB* 25 MG PO SCH (09:00)
[2019-05-28] MEDS ORDERED: Diclofenac Sodium EC TAB* 25 MG PO SCH (09:00)
[2019-05-28 10:28] LABS: C Reactive Protein 6.22 mg/L (<8.01)
--- NOTE | 2019-05-28 14:48 | PN ---
Subjective Date of Service: 05/28/19 Interval History: Patient today is concerned about his weakness and pain, mainly in his right arm and leg. Patient states it is about the same as yesterday, but that it has been getting progressively worse for a month. Patient states he has not been seeing any of his providers as he is frustrated with their care. Patient states he has been told he had RA, but was never on treatment for it. Patient states he is very concerned about his cognitive decline and is very interested in repeat cognitive testing. Patient denies F/C, N/V, abdominal pain, CP, SOB, dizziness, or other pain. Family History: Unchanged from Admission Social History: Unchanged from Admission Past Medical History: Unchanged from Admission Objective Active Medications: Acetaminophen (Tylenol Tab*) 650 mg PO Q4H PRN PRN Reason: MILD PAIN or TEMP > 100.4 Albuterol (Ventolin Hfa Inhaler*) 2 puff INH Q4H PRN PRN Reason: WHEEZING Alprazolam (Xanax Tab*) 0.25 mg PO ONCE PRN PRN Reason: ANXIETY Last Admin: 05/27/19 21:12 Dose: 0.25 mg Aspirin (Aspirin 81 Mg Chew Tab*) 81 mg PO DAILY [facility] Last Admin: 05/28/19 08:25 Dose: 81 mg Atorvastatin Calcium (Lipitor*) 40 mg PO DAILY [facility] Last Admin: 05/28/19 08:24 Dose: 40 mg Clopidogrel Bisulfate (Plavix Tab*) 75 mg PO DAILY [facility] Last Admin: 05/28/19 08:24 Dose: 75 mg Cyclobenzaprine HCl (Flexeril Tab*) 10 mg PO TID PRN PRN Reason: SPASMS Last Admin: 05/28/19 08:24 Dose: 10 mg Diclofenac Sodium (Voltaren Ec Tab*) 100 mg PO DAILY [facility] Last Admin: 05/28/19 08:25 Dose: 100 mg Magnesium Hydroxide (Milk Of Magnesia Liq*) 30 ml PO Q4H PRN PRN Reason: CONSTIPATION Metoprolol Succinate (Toprol Xl Tab*) 25 mg PO DAILY [facility] Last Admin: 05/28/19 08:24 Dose: 25 mg Senna (Senokot 8.6 Mg Tab*) 1 tab PO BID PRN PRN Reason: CONSTIPATION Tramadol HCl (Ultram*) 50 mg PO ONCE PRN PRN Reason: PAIN - SEVERE Last Admin: 05/27/19 20:48 Dose: 50 mg Vital Signs - 8 hr 05/28/19 05/28/19 05/28/19 07:15 08:00 08:24 Temperature 97.2 F Pulse Rate 79 Respiratory 16 18 18 Rate Blood Pressure 129/75 (mmHg) O2 Sat by Pulse 100 Oximetry 05/28/19 05/28/19 09:55 11:15 Temperature 98.4 F Pulse Rate 74 Respiratory 16 16 Rate Blood Pressure 131/73 (mmHg) O2 Sat by Pulse 100 Oximetry Oxygen Devices in Use Now: None Appearance: Patient is a 63yo male who appears stated age and is sitting in the bed in [facility]. Eyes: No Scleral Icterus, PERRLA Ears/Nose/Mouth/Throat: NL Teeth, Lips, Gums, Clear Oropharnyx, Mucous Membranes Moist Neck: NL Appearance and Movements; NL JVP, Trachea Midline Respiratory: Symmetrical Chest Expansion and Respiratory Effort, Clear to Auscultation Cardiovascular: NL Sounds; No Murmurs; No JVD, RRR, No Edema, - - Cold extremites, Pulse trace in B/L PT areas. 1+ in B/L radial and DP. Ulnar non- palpable B/L. Abdominal: NL Sounds; No Tenderness; No Distention, No Hepatosplenomegaly Lymphatic: No Cervical Adenopathy Extremities: No Clubbing, Cyanosis, - - Trace RLE edema. Skin: No Nodules or Sclerosis Neurological: Alert and Oriented x 3, - - Diminished sensation and strength on Right side. 2+ reflexes in RUE and 1+ in LUE. Positive barragan's sign. Negative B/L Spurling's test. Result Diagrams: 05/28/19 05:27 05/28/19 05:27 Assess/Plan/Problems-Billing Assessment: Patient is a 63yo male with a PMH for PVD, CAD, Advanced Arthritis, Chronic Pain , here with progressive weakness and pain over 1 month, progressed to the point of not being able to walk. - Patient Problems (1) Cervical myelopathy Current Visit: Yes Status: Acute Code(s): G95.9 - DISEASE OF SPINAL CORD, UNSPECIFIED SNOMED Code(s): 730764619 Comment: - Presenting with progressive weakness, Spasticity and falls. - B/L Signs of cord compression - Appreciate Neurology input. - Needs Urgent cord decompression - No neurosurgery available, will need to transfer. (2) CAD (coronary artery disease) Current Visit: No Status: Chronic Code(s): I25.10 - ATHSCL HEART DISEASE OF [place] CORONARY ARTERY W/O ANG PCTRS SNOMED Code(s): 20599247 Comment: - S/P Remote stenting - Continue ASA, statin, beta bart - Hold Clopidogrel, has not had ANTHONY in last 12 months. (3) COPD (chronic obstructive pulmonary disease) Current Visit: No Status: Chronic Code(s): J44.9 - CHRONIC OBSTRUCTIVE PULMONARY DISEASE, UNSPECIFIED SNOMED Code(s): 87576236 Comment: - Continue Spiriva, prn albuterol - No signs of exacerbation (4) Fibromyalgia Current Visit: No Status: Chronic Code(s): M79.7 - FIBROMYALGIA SNOMED Code(s): 276325576 Comment: - Continue home cyclobenzaprine, pregabalin, tramadol (5) HLD (hyperlipidemia) Current Visit: No Status: Chronic Code(s): E78.5 - HYPERLIPIDEMIA, UNSPECIFIED SNOMED Code(s): 02285955 Comment: - Continue statin. (6) HTN (hypertension) Current Visit: No Status: Chronic Code(s): I10 - ESSENTIAL (PRIMARY) HYPERTENSION SNOMED Code(s): 08771982 Comment: - Normotensive - Continue Metoprolol (7) Thrombocytopenia Current Visit: Yes Status: Acute Code(s): D69.6 - THROMBOCYTOPENIA, UNSPECIFIED SNOMED Code(s): 097002058 Comment: - Acute on Chronic, unclear cause. (8) PVD (peripheral vascular disease) Current Visit: No Status: Chronic Code(s): I73.9 - PERIPHERAL VASCULAR DISEASE, UNSPECIFIED SNOMED Code(s): 362203250 Comment: - Continue ASA and statin - Hold Plavix for possible surgery or myelogram (9) DVT prophylaxis Current Visit: No Status: Acute Code(s): XWQ4389 - SNOMED Code(s): 668473544 Comment: - SCDs in setting of thrombocytopenia Status and Disposition: Inpatient, will need transfer to neurosurgery capable facility.
[2019-05-28 15:46] VITALS: BP 147/64
--- NOTE | 2019-05-28 17:07 | CONS ---
NEUROLOGY CONSULTATION: DATE OF CONSULT: 05/28/19 LOCATION: He is an inpatient in room 431. REFERRING PROVIDER: JOSEPH Song CHIEF COMPLAINT: Weakness, numbness, falls. HISTORY OF PRESENT ILLNESS: Davion Thrasher is a 63-year-old right-handed man who reports several weeks or longer of progressive weakness. He has been falling for about a month and feels that both legs are weak, but the right is weaker. It may go back even further than that. He has had numbness in his feet going back perhaps a year. That is worse on the right as well. He has noted progressive weakness in his hands and arms also for at least weeks if not months , also worse on the right. He has chronic neck pain. He has noted problems with bladder control, urinary urgency and frequency. He has had problems with constipation. He has been evaluated for spinal problems in the past and had an MRI of his cervical spine back in 2013, which I reviewed. He has multilevel cervical spondylosis, which was particularly tight at the C4-5 level. There was no clear cord compression. He had myelogram subsequently after a pacemaker was placed in 2015. It was a myelogram of his lumbar and thoracic region and it did not show a block. He has had repeated falls, which have been getting progressively more frequent. He has noted his hands are starting to claw for at least several weeks. PAST MEDICAL HISTORY: Notable for peripheral vascular disease, chronic anxiety disorder, diagnosis of fibromyalgia syndrome, coronary artery disease with stenting and pacemaker, hypertension, hyperlipidemia. MEDICATIONS ON ADMISSION: Consist of: 1. Diclofenac 100 mg p.o. daily. 2. Albuterol inhaler q.4 hours p.r.n. 3. Metoprolol 25 mg p.o. daily. 4. Flexeril 10 mg p.o. t.i.d. as needed. 5. Plavix 75 mg p.o. daily. 6. Atorvastatin 40 mg p.o. daily. 7. Aspirin 81 mg p.o. daily. 8. Nitroglycerin p.r.n. chest pain. 9. Medical marijuana. ALLERGIES: He is allergic to GABAPENTIN. SOCIAL HISTORY: He still smokes, does not drink alcohol. He is on disability. 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 REVIEW OF SYSTEMS: Notable for worsening neck pain and crepitus with movement. He gets muscle spasms in all of his extremities, particularly his right arm and right leg. He has difficulty with mentally concentrating and focusing at times. PHYSICAL EXAM: He is well nourished and well hydrated. Blood pressure is running 130/73, temperature 98.4 orally, heart rate in the 70s and regular, respiratory rate is 16 and oxygen saturation is 100% on room air. Lungs reveal a few wheezes bilaterally. Heart tones sound normal. Neck range of motion is limited, particularly in lateral rotation and lateral flexion and extension. He has edema in both of his legs and bluish discoloration of his right foot. On neurological exam, pupils react equally from 3 down to 2 mm. Eye movements and visual roe are normal. Funduscopic exam is normal bilaterally. Palate and tongue appear normal and there are no fasciculations. Tongue protrudes in the midline and palate rises symmetrically. Facial musculature is intact and symmetric. Facial sensation to temperature and light touch is intact and symmetric. On motor exam, he has spasticity in all limbs, worse in the right leg and the right arm. It is also present in the left leg and left arm, however. I do not see any atrophy or fasciculations other than in the right calf where there is some atrophy. He has marked limited range of motion particularly about the right shoulder. He has clawing of his right hand. Strength is rated deltoids 2/4-, biceps 3/4-, triceps 3/4. He is able to fully extend his left wrist and fingers, but not fully able to extend his right wrist and fingers. He has weak seedling sorter bilaterally. He has barely antigravity flexor weakness on the left and less than antigravity hip flexor weakness on the right. He can full extend his legs at both knees. He has 95- to 100-degree right ankle contracture. He has grade 4 left ankle dorsiflexor weakness, grade 2 right ankle dorsiflexor weakness. He is diffusely hyperreflexic including biceps, brachioradialis, triceps, and knees. He has left ankle clonus. He has crossed adductor reflexes bilaterally. He has bilateral Babinski signs. He is not able to stand independently. Sensory exam is notable for absent light touch and vibration in the feet. There is absent temperature sensation in the legs and decreased in the left arm relative to the right. Temperature sensation is normal on the back above the C5 level. There is diminished pin discrimination on the back with the level at C5 bilaterally. IMPRESSION AND PLAN: Impression is that of a cervical myelopathy. It is apparently accelerated and is worsening over the last several weeks, but has probably been coming on more gradually. He is not able to stand at this point and cannot have an MRI scan because of his pacemaker. We do not have neurosurgical coverage currently and so I think he needs to be transferred to a center with neurosurgical capabilities. We cannot do an MRI scan here and he will need a myelogram undoubtedly. I have discussed my impression with JOSEPH Song, who is trying to see what neurosurgical transfer possibilities might exist. I have discussed with Davion my concern that he has a "pinched spinal cord" and he himself was concerned that that was what is making him weaker as well. He understands the need for neurosurgical consultation and is willing to be transferred to a center that is best able to care for him. [id number]/CPS #: [id number] MTDRemigio
--- NOTE | 2019-05-28 18:36 | TRS ---
CC: Dr. Garcia; Dr. Michelle Clifford* TRANSFER SUMMARY: DATE OF ADMISSION: 05/27/19 DATE OF TRANSFER: 05/28/19 PRIMARY CARE PROVIDER: Dr. Garcia. MY ATTENDING WHILE IN THE HOSPITAL: Dr. Michelle Clifford* (dictated by JOSEPH Vargas). CONSULTING NEUROLOGIST: Dr. Mark Kent. PRIMARY TRANSFER DIAGNOSES: 1. Right-sided weakness. 2. Concern for cervical cord compression, myelopathy. SECONDARY DISCHARGE DIAGNOSES: 1. Peripheral vascular disease. 2. Coronary artery disease. 3. Advanced osteoarthritis. 4. History of rheumatoid arthritis. 5. Hypertension. 6. Hyperlipidemia. 7. Anxiety. 8. Fibromyalgia. 9. Peripheral neuropathy. 10. Status post pacemaker placement. STUDIES DONE WHILE IN THE HOSPITAL: Brain CT from 05/27/19 read as no calvarial fracture or acute intracranial abnormality. 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 Multilevel degenerative changes of the cervical spine without evidence of acute fracture or dislocation. Cervical spine CT read as same. Chest x-ray read as no radiographic evidence for acute cardiopulmonary abnormality. Chest, abdomen and pelvis CTA read as no CT evidence for pathological aneurysmal dilatation or acute dissection of the aorta. There is widespread attenuation of atherosclerosis causing various degrees of stenosis as reported above. Additional chronic degenerative findings. Chest middle lobe immediately inferior to the anterior margin of the right fissure, there is pulmonary nodule measuring 1 cm in the axial plane and only 4 mm in the cephalocaudal dimension. It is not changed significantly since 09/16/16. Otherwise, lungs are clear. No mediastinal or hilar lymphadenopathy. The heart is grossly normal in appearance. No angiographic findings. Ankle x-ray read as no radiographic appearing fracture or dislocation of the right ankle. Incidentally noted coarse calcification overlying the distal anterior tibial artery. Please correlate with signs and symptoms of lower extremity arterial insufficiency. MEDICATIONS: Home medications prior to admission: 1. Atorvastatin 40 mg p.o. daily. 2. Cyclobenzaprine 10 mg p.o. t.i.d. as needed. 3. Plavix 75 mg p.o. daily. 4. Nitroglycerin 0.4 mg sublingually as needed for chest pain. 5. Tylenol 325 mg p.o. t.i.d. as needed. 6. Aspirin 81 mg p.o. daily. 7. Metoprolol succinate 25 mg p.o. daily. 8. Nicotine nasal spray 10 mg nasally as needed for cravings. 9. Albuterol inhaler 1 to 2 puffs inhalation q.4 hours as needed. 10. Medical marijuana. 11. Diclofenac sodium 100 mg p.o. daily. 12. Tramadol 50 mg p.o. q.8 hours as needed. Additional medication in the hospital: Alprazolam 0.25 mg p.o. t.i.d. as needed. HOSPITAL COURSE: This is a brief summary of the patient's presentation. For more details, please see the history and physical from Lynne Waters NP, on 05/27/19. In brief, the patient is a 63-year-old male with past medical history significant for the above, who presented to the emergency department after approximately 1 month of progressively worsening weakness with 7 falls, a feeling of his foot dragging, muscle twitching and muscle spasms, particularly affecting the right side, worse in his right hand. The patient presented to the emergency department because he was unable to walk or hold anything in his right hand. The patient in the emergency department had studies as above. The patient had previously been evaluated by a neurosurgeon in 2016 and was not found to have any surgical indications; however, the patient's symptoms have worsened significantly since then. The patient had mainly stopped going to any medical care as he was frustrated with his providers as he felt he is being dismissed out of hand and his complaints are not taken seriously. The patient was admitted to the hospital, was evaluated by Physical Therapy and found to have severe ambulatory dysfunction. The patient was evaluated by Dr. Mark Kent of Neurology, who believed that the patient's spasticity in addition to hyperreflexia and weakness were consistent with cord compression, which was backed up by his findings on CT, though this is not diagnostic and recommended urgent evaluation for possible cord decompression. No neurosurgeon was available and the patient's case was discussed with Dr. Tinoco at [facility], who recommended transfer for myelogram and surgical planning. The patient was stable and amenable for transfer on 05/28/19. PERTINENT PHYSICAL EXAM ON THE DAY OF DISCHARGE: Heart and Lung Exam: Unremarkable. Neurologic Exam: Pertinent for intact cranial nerves II through XII. Strength 1/5 in the proximal muscles of the right upper extremity. Strength 2/5 in the first finger and the thumb. Strength 1/5 in the fingers 3 through 5. Strength 2/5 in the forearm. Strength 4/5 in the left upper and lower extremities. Strength 4-/5 distally and proximally in the left lower extremity. Unable to assess gait. Decreased sensation to light touch in the right upper and lower extremities distally and proximally with endorsed paresthesias. Positive Karis sign in the right upper extremity. Clonus in the right lower extremity. 3+ reflexes in the biceps and triceps of the right upper extremity, 2+ reflex in the right lower extremity. Positive Babinski sign in the right lower extremity. Skin: There is an ulcer with scant bleeding on the left toe of the left lower extremity without signs of erythema. Peripheral Vascular: The patient has moderately cold extremities. Pulses 1+ in the bilateral radial areas. Nonpalpable ulnar pulses bilaterally. Pulses trace in the bilateral posterior tibialis areas and 1+ in the bilateral dorsalis pedis areas. TRANSFER PLAN BY PROBLEM: 1. Right greater than left-sided weakness, concern for cervical cord compression. The patient has severe osteoarthritis as well as the possibility of rheumatoid arthritis and has had numerous accidents throughout his life. The patient has been having deteriorating course over the past month. With concern for the spasticity, falls and concern for cord compression, the patient will be transferred to a neurosurgery capable facility to complete his workup with a myelogram of the cervical spine as the patient is unable to have an MRI and possible decompression of his cervical spinal cord. The patient will likely need rehab stay thereafter. He is aware and agreeable to this plan. Continue with Flexeril and tramadol for symptomatic treatment. 2. History of coronary artery disease. The patient was on aspirin, Plavix and a statin as well as Toprol. The patient has a history of coronary artery stenting, though not within the last 12 months. The patient had his Plavix held for the possibility of myelogram. The patient's last dose was in the morning of 05/28/19. The patient had 2 negative troponins and nonischemic EKG upon admission. The patient has had no chest pain. The patient had a nuclear medicine stress test at this institution in August of 2016, which was read as low risk with no definite fixed or reversible perfusion defects, though the patient does have significant risk factors for coronary artery disease and is a known severe vasculopath. Further preoperative risk assessment per evaluation by primary team. 3. Hypertension. The patient is normotensive at this time on metoprolol succinate only. 4. Anxiety. Continue Xanax p.r.n. The patient has just recently stopped all of his antianxiety medications at home. 5. Fibromyalgia. Continue tramadol and baclofen. The patient follows with the pain clinic. 6. Peripheral neuropathy. This is idiopathic and has been stable for years per outpatient neurology notes. 7. Peripheral vascular disease. See above coronary artery disease discussion. The patient's disease is advanced. DISPOSITION: Transferred to higher level of care. CONDITION: Stable. TIME SPENT: Approximately 60 minutes was spent on this transfer, 30 of which was spent [id number] with the patient obtaining history and physical and discussing treatment plan. JOSEPH VARGAS [id number]/CPS #: [id number] PATRICIO
== END 2019-05-28 18:16 | disposition short-term general hospital (02) | DRG 347 ==
LOC: ED 09:39 → MEDTELE 15:31 → OBSVTOIN 05-28 09:41
PROVIDERS: ADMIT Nurse Practitioner; ATTEND Internal Medicine
DX: M47.12 Other spondylosis with myelopathy, cervical region (principal); I10 Essential (primary) hypertension; I73.9 Peripheral vascular disease, unspecified; I25.10 Atherosclerotic heart disease of native coronary artery without angina pectoris; M06.9 Rheumatoid arthritis, unspecified; F41.9 Anxiety disorder, unspecified; G62.9 Polyneuropathy, unspecified; E78.00 Pure hypercholesterolemia, unspecified; J44.9 Chronic obstructive pulmonary disease, unspecified; G47.30 Sleep apnea, unspecified; M79.7 Fibromyalgia; M41.9 Scoliosis, unspecified; H91.90 Unspecified hearing loss, unspecified ear; R51 Headache; R41.89 Other symptoms and signs involving cognitive functions and awareness; F17.210 Nicotine dependence, cigarettes, uncomplicated; D69.6 Thrombocytopenia, unspecified; R13.10 Dysphagia, unspecified; M25.571 Pain in right ankle and joints of right foot; K59.00 Constipation, unspecified; G89.29 Other chronic pain; Z88.8 Allergy status to other drugs, medicaments and biological substances; Z95.5 Presence of coronary angioplasty implant and graft; Z97.4 Presence of external hearing-aid; Z95.0 Presence of cardiac pacemaker
CPT/HCPCS: 36415; 70450; 71045; 71275; 72125; 74174; 80048; 80053; 81003; 82607; 83735; 84443; 84484; 85025; 85060; 85610; 86140; 93005; 99285; A9270-GY; G0378; G8978-GP-CL; G8979-GP-CJ; Q9967

== ENCOUNTER 2019-06-18 10:54 | Inpatient (IN) | payer OTHER ==
[2019-06-18] MEDS ORDERED: Magnesium Hydroxide LIQ* 30 ML UDC PO PRN (17:09)
[2019-06-18] MEDS ORDERED: Albuterol HFA INHALER* 8 gm MDI INH PRN (17:19)
[2019-06-18] MEDS ORDERED: Nicotine Lozenge* mini 2 MG LOZNG.MINI MT PRN (19:18)
[2019-06-18] MEDS: Senna TAB 8.6 mg* TAB PO SCH (20:12)
[2019-06-18] MEDS: Docusate CAP* 100 MG PO SCH (20:12)
[2019-06-18] MEDS: Gabapentin CAP(*) 100 MG PO SCH (20:13)
[2019-06-18] MEDS: Mupirocin 2% OINT* TUBE TOPICAL SCH (20:13)
[2019-06-18] MEDS: Cyclobenzaprine TAB* 10 MG PO PRN (20:13)
[2019-06-18] MEDS: traMADol TAB* 50 MG PO PRN (20:14)
--- NOTE | 2019-06-18 21:29 | HP ---
ADMISSION HISTORY AND PHYSICAL: DATE OF ADMISSION: 06/18/19 REASON FOR ADMISSION: Cervical myelopathy; status post anterior cervical decompression and fusion at C3-4. HISTORY OF PRESENT ILLNESS: Davion Thrasher is a 63-year-old male. He has ongoing low back pain. He also has neck pain as well. He has had both for many years. He has been a patient in the pain clinic for at least the past 5 years. In 2016 , he had medial branch blocks with Dr. Asencio, which did not really provide any meaningful relief. He was a long time smoker and has peripheral vascular disease. In April of 2019, he was hospitalized at [facility]. At that time, he was saying that his legs were weak. He was having progressive weakness for about a month or 2 prior to his admission. He also is having difficulty with bladder control. He was having repeated falls and was having difficulty opening his hands. He was seen by the neurologist Dr. Kent who thought he had cervical myelopathy. He could not have a MRI scan because of his pacemaker and at the time of that hospitalization Neurosurgery coverage was not available at [facility]. It was recommended that they transfer the patient. He was transferred to [facility] on 05/28/19. A myelogram was recommended at [facility]. The myelogram was attempted twice by the radiologist, but it was unsuccessful. An MRI was initially not done because he had a pacemaker. An MRI was done using the pacemaker mode and the MRI was able to be completed. The MRI of his cervical spine showed significant stenosis at the C3-4. He was seen by Neurosurgery. Surgery was planned, but the patient was thrombocytopenic. 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 He received IVIG and platelet transfusions and subsequently had an improvement in his platelet count. He was taken to the operating room on 06/13/19 and underwent an anterior cervical decompression and fusion using an allograft and anterior instrumentation. He was noted to have an ulcer on his left toe and was given IV antibiotics for that and subsequently switched to Bactroban. The wound was cultured and grew out methicillin-sensitive Staph aureus. He also had an MRI of his thoracic spine while they did the MRI of the cervical spine. It showed chronic osteoporotic compression fractures at T9 and T11 with height loss and mild degenerative spondylosis. He had an MRI of his lumbar spine, which showed degenerative spondylosis of his lumbar spine with osteoporotic compression fractures noted at T11 and T12. Following his surgery, the patient seemed to do better. However, he was felt to have physical therapy and occupational therapy needs. He was restarted on his antiplatelet medications for peripheral vascular disease. He was restarted on Plavix and aspirin today 06/18/19. DVT prophylaxis was not done because of his cervical spine surgery. The patient was felt to have physical therapy and occupational therapy needs. He is now being admitted for inpatient rehab so that he might return to independent living. PAST MEDICAL HISTORY: Significant for the aforementioned thrombocytopenia. He has a longstanding neck and back pain. He has chronic anxiety disorder and had seen a psychiatrist, but has not seen one for many years. He had a pacemaker placed in 2016. He has coronary artery disease as well and hypertension and hyperlipidemia, peripheral vascular disease. CURRENT MEDICATIONS: Include Toprol XL. He is on aspirin and Plavix. He is on gabapentin, Lexapro, Lipitor, Flexeril, and tramadol. ALLERGIES: He has an allergy listed to GABAPENTIN although he was taking gabapentin at [facility]. SOCIAL HISTORY: He is a nonsmoker, nondrinker. Lives with his girlfriend in a multi-lisandra house. He also lives with his girlfriend's niece. The patient does smoke pot on a daily basis. FAMILY HISTORY: Noncontributory. REVIEW OF SYSTEMS: The patient reports no current shortness of breath or chest pain. PHYSICAL EXAMINATION VITAL SIGNS: The patient's temperature is 97.6, blood pressure is 130/81, pulse is 100, respirations 16. HEENT: His extraocular movements are intact. Tongue is midline. NECK: Supple. LUNGS: Sounded clear to auscultation bilaterally. HEART: Heart sounds are regular. S1, S2 are audible. ABDOMEN: Soft and nontender. EXTREMITIES: His extremities showed some atrophy of his intrinsic muscles of his hands, mildly increased tone in his arms. Peripheral pulses are intact. His left foot, on his great toe there was an ulcer. His neurologic sensation was diminished in his feet. Muscle strength appears to be 5/5 in both upper and lower extremities. FUNCTIONAL EXAM: He transfers with contact guard to min assist. ASSESSMENT: Cervical myelopathy, status post anterior cervical decompression and fusion at C3-4. PLAN: Integrate him into a comprehensive and therapeutic rehab program on the following goals: 1. Physical Therapy will work with the patient. They are going to work on functional transfer training and ambulation training with a walker. 2. Occupational Therapy will see the patient, work on his activities of daily living including toileting and toilet transfers. 3. We will do SCDs for DVT prophylaxis. We will hold chemical prophylaxis for now. 4. Resume aspirin and Plavix for his peripheral vascular disease. 5. Continue Lexapro for his depression. 6. Continue psychiatric consult for anxiety. 7. For his coronary artery disease, we are going to continue his Toprol-XL. 8. For COPD, we are going to continue albuterol inhaler. 9. Nicotine replacement as needed. 10. catering convention services manager will be closely involved to make sure that any services and equipment that patient requires are in place prior to discharge. 11. Family training as appropriate. 12. Home with appropriate services. ESTIMATED LENGTH OF STAY: One week. [id number] #: [id number] PATRICIO
[2019-06-19] MEDS: traMADol TAB* 50 MG PO PRN ×3 (02:30→14:13)
[2019-06-19] MEDS: Metoprolol Succinate XL TAB* 25 MG PO SCH (08:24)
[2019-06-19] MEDS: Docusate CAP* 100 MG PO SCH ×2 (08:24→20:31)
[2019-06-19] MEDS: Aspirin EC TAB* 81 MG TAB.EC PO SCH (08:25)
[2019-06-19] MEDS: Gabapentin CAP(*) 100 MG PO SCH ×3 (08:25→20:31)
[2019-06-19] MEDS: Clopidogrel TAB* 75 MG PO SCH (08:25)
[2019-06-19] MEDS: Mupirocin 2% OINT* TUBE TOPICAL SCH ×3 (08:34→20:31)
[2019-06-19] MEDS: Escitalopram * 20 MG TABLET PO SCH (08:35)
[2019-06-19] MEDS ORDERED: Influenza VAC *QUAD* 2019-20* 0.5 ML SYRINGE IM ONE (09:00)
[2019-06-19] MEDS: Acetaminophen TAB* 325 MG PO PRN (11:01)
--- NOTE | 2019-06-19 12:36 | PMRUTEAM ---
PMRU: Team Meeting Current Status: Physical Therapy: Current Status Current Rolling Status Supervision/Touching Current Supine <-> Sit Status Partial/Moderate Current Sit <-> Stand Status Partial/Moderate Current Bed <-> Chair Status Partial/Moderate Transfer/Bed Mobility Rolling Walker Recommended Devices Current Picking Up Object Partial/Moderate Status Current Car Transfer Status Partial/Moderate Current Ambulation Assistance Partial/Moderate Status Ambulation Assistive Device Rolling Walker Ambulation Conditions Two or More Turns,Uneven Surfaces Current Ambulation Distance 100' Ambulation Comment Moderately ataxic gait with poor muscular endurance, min Ax1 Current Wheelchair Propulsion Not Applicable Ability Status Current Stair Climbing Status Partial/Moderate Stair Climbing Assistive Left Railing,Right Railing Devices Number of Stairs Climbed 5 Current Curb Assistance Status Partial/Moderate Curb Assistive Devices Rolling Walker Occupational Therapy: Current Status Current Upper Body Dressing Partial/Moderate Status Current Lower Body Dressing Partial/Moderate Status Current Footwear Status Partial/Moderate Current Bathing Status Partial/Moderate Current Grooming Status Partial/Moderate Current Toileting Status Partial/Moderate Current Toilet Transfer Status Partial/Moderate Current Eating Status Setup or Clean-up Assist Nursing: Current Status Skin Deviations [Generalized] Abrasion Skin Deviations [Left 1st Toe] Wound Skin Deviations [Anterior Neck Incision ] Skin Deviations [Left Arm] Bruise Skin Deviations [Right Arm] Bruise Skin Deviations [Right Abrasion Buttocks] Skin Deviations [Right 1st Skin Tear Finger] Skin Deviation Description [ scattered small abrasions to hands and LE Generalized] Skin Deviation Description [ not open wound, ointment applied Left 1st Toe] Skin Deviation Description [ steristrips Anterior Neck] Skin Deviation Description [ lower Left Arm] Skin Deviation Description [ upper Right Arm] Skin Deviation Description [ pinkish, abrasion on left buttock Right Buttocks] Bladder Current Status use urinal at night, to BR during the day Bowel Current Status no bowel issue Nutrition Current Status 100% breakfast Medication Current Status JACQUI pain med and PRN pain med Rec Therapy: Current Status Summary of Assessment and Will introduce Recreation therapy services today 1 Clinical Impression / Social Work: Current Status Discharge Plan return home with home care svs and family support Potential for Family Training pt's girlfriend is involved and supportive Anticipated Discharge Home Destination Discharge With home care svs and family support Goals: Physical Therapy: Goals Goals to Be Accomplished in ( 7 Days) Goal: Rolling Assistance Independent Goal Supine <-> Sit Status Independent Goal Sit <-> Stand Status Independent Goal Bed <-> Chair Status Independent Transfer/Bed Mobility Rolling Walker Recommended Devices Goal: Picking Up Object Supervision/Touching Goal: Car Transfer Status Supervision/Touching Goal: Ambulation Assistance Independent Ambulation Assistive Devices Rolling Walker Ambulation Distance (ft) 150' Goal: Wheelchair Propulsion Not Applicable Ability Goal: Stairs Assistance Supervision/Touching Stairs Recommended Devices One Rail Number of Stairs 12 Goal: Curb Assistance Supervision/Touching Goal: Home Exercise Program Independent Assistance Occupational Therapy: Goals Goals to be Completed in (Days 5-7 days ) Goal Upper Body Dressing Independent Routine Goal Lower Body Dressing Independent Routine Goal Footwear Status Independent Goal Bathing Routine (OT) Supervision/Touching Goal Grooming Routine Independent Goal Toilet Hygiene and Independent Clothing Management Routine Goal Toilet Transfer Routine Independent Goal Functional Transfers for Independent ADL Goal Feeding Routine Independent Goal Light Housekeeping Tasks Partial/Moderate Social Work: Goals Discharge Plan return home with home care svs and family support Potential for Family Training pt's girlfriend is involved and supportive Anticipated Discharge Home Destination Discharge With home care svs and family support Nursing: Goals Bladder Goal independent Bowel Goal independent Nutrition Goal continue to have good appetite Medication Goal pain management Care Plan: Care Plan ADL's - Improve/Maintain Start: 06/19/19 11:56 Freq: DAILY@0700,1900 Status: Active Target: 06/20/19 Protocol: Activity Type Activity Date Activity User E-Sign Co-Sign Detail Recorded Client Recorded Date Recorded By Document 06/19/19 11:56 [id number] 06/19/19 11:57 [id number] 06/19/19 11:56 PMRU Outcome: ADL's/ADL Transfers Orders/Interventions Occupational Therapy Evaluation & Treatment Device Yes Address Deficits Secondary To: decompression and fusion C3- C4 Patient to receive OT 5x/wk for 60-120 Therex min/day Self Care Management Group Therapy Neuromuscular ReEducation UE/LE ADL's with Assist Yes: Independent ADL Transfers with Assist Yes: Independent Toileting: Transfers,Clothing Management Yes: ,Hygeine w/Assist Independent Light Kitchen/Laundry w/Assist Yes: modA Other Outcome/Goals Pt is a 63 y/o male s/p anterior cervical decompression and fusion @ C3 -C4 presenting with limited endurance, coordination deficits, ataxia, balance deficits, and R hand strength limitations affecting bathing toileting, dressing and functional mobility/ transfers. Pt completes his morning ADL routine as reported above. He has difficulty holding objects in his R hand 2* limited hand strength and coordination. Pt drops his deoderant x2 while applying under his L arm . Pt demonstrates L lateral lean during standing tasks. Pt will benefit from acute rehabiliation services to maximize independence and safety with ADL routine. Progression Toward Outcome/Goals Goal Initiation DVT Prophylaxis- Improve/Maintain Start: 06/18/19 16:55 Freq: DAILY@00,1899 Status: Active Target: 06/25/19 Protocol: Activity Type Activity Date Activity User E-Sign Co-Sign Detail Recorded Client Recorded Date Recorded By Document 06/19/19 07:00 [id number] 06/19/19 07:23 [id number] 06/19/19 07:00 PMRU Outcome: DVT Prophylaxis Current DVT Outcome/Goals Remains Free of DVT Complies with DVT Prophylaxis /Treatment Demonstrates Knowledge of DVT Prevention/ Treatment Progression Toward Outcome/Goals Progressing Discharge Planning - Improve/Maintain Start: 06/18/19 16:55 Freq: DAILY@ Status: Active Target: 06/25/19 Protocol: Activity Type Activity Date Activity User E-Sign Co-Sign Detail Recorded Client Recorded Date Recorded By Document 06/19/19 07:00 [id number] [id number] 06/19/19 07:23 [id number] 06/19/19 07:00 PMRU Outcome: Discharge Planning Update Patient Family No Current Discharge Planning Outcome/Goals Demonstrates Understanding of Discharge Plan Progression Toward Outcome/Goals Progressing Education-Improve/Maintain Start: 06/18/19 16:55 Freq: DAILY@699,1899 Status: Active Target: 06/25/19 Protocol: Activity Type Activity Date Activity User E-Sign Co-Sign Detail Recorded Client Recorded Date Recorded By Document 06/19/19 07:00 [id number] [id number] 06/19/19 07:23 [id number] 06/19/19 07:00 PMRU Outcome: Education Current Education Outcome/Goals Demonstrate/ Verbalize Understanding of Written Discharge Instructions Demonstrates Skills Encourage Questions Progression Toward Outcome/Goals Progressing /GI-Improve/Maintain Start: 06/18/19 16:55 Freq: DAILY@699,1899 Status: Active Target: 06/25/19 Protocol: Activity Type Activity Date Activity User E-Sign Co-Sign Detail Recorded Client Recorded Date Recorded By Document 06/19/19 07:00 [id number] 06/19/19 07:23 [id number] 06/19/19 07:00 PMRU Outcome: Genitourinary/ Gastrointestinal Current Gastrointestinal Outcome/Goals Maintain/ Achieve Bowel Regularity in Accordance with Pt's Baseline Remain Free of Emesis Prevent Constipation Laxatives as Ordered Progression Toward Outcome/Goals Progressing Current Genitourinary Outcome/Goals Maintain/ Achieve Adequate Urinary Output Progression Toward Outcome/Goals Progressing Medication Administration Start: 06/18/19 16:55 Freq: DAILY@0700,1900 Status: Active Target: 06/25/19 Protocol: Activity Type Activity Date Activity User E-Sign Co-Sign Detail Recorded Client Recorded Date Recorded By Document 06/19/19 07:00 [id number] [id number] 06/19/19 07:23 [id number] 06/19/19 07:00 PMRU Outcome: Medication Administration Assess Patient Knowledge/Teach Med Yes Education for all Meds Current Procedures Nurse Outcome/Goals Patient Independent with Medication Administration at Home Progression Towards Outcome/Goals Progressing Is Patient Going Home on Lovenox? No Neurological- Improve/Maintain Start: 06/18/19 16:55 Freq: DAILY@0700,1900 Status: Active Target: 06/25/19 Protocol: Activity Type Activity Date Activity User E-Sign Co-Sign Detail Recorded Client Recorded Date Recorded By Document 06/19/19 07:00 [id number] 06/19/19 07:23 [id number] 06/19/19 07:00 PMRU Outcome: Neurological Current Neurological Outcome/Goals Improve Neurological Status Prevent Avoidable Neurological Decline Demonstrate Knowledge of Prevention/Tx of Neuro Disorders/ Complication Maintain/ Improve Strength/ROM Progression Toward Outcome/Goals Progressing Pain/Comfort- Improve/Maintain Start: 06/18/19 16:55 Freq: DAILY@0700,1900 Status: Active Target: 06/25/19 Protocol: Activity Type Activity Date Activity User E-Sign Co-Sign Detail Recorded Client Recorded Date Recorded By Document 06/19/19 07:00 [id number] 06/19/19 07:23 [id number] 06/19/19 07:00 PMRU Outcome: Pain/Comfort Current Pain/Comfort Outcome/Goals Demonstrates Knowledge and Use of Available Comfort Measures Achieves Acceptable Comfort/Pain Level as Determined by Patient/Condit Maintain Comfort Level Allowing Patient to Fully Participate in Rehab Progression Toward Outcome/Goals Progressing Safety- Improve/Maintain Start: 06/18/19 13:51 Freq: DAILY@699,1899 Status: Active Target: 06/25/19 Protocol: Activity Type Activity Date Activity User E-Sign Co-Sign Detail Recorded Client Recorded Date Recorded By Document 06/19/19 07:00 [id number] 06/19/19 07:23 [id number] 06/19/19 07:00 PMRU Outcome: Safety Current Safety Outcome/Goals Remain Free of Injury or Harm Cooperates with Safety Measures for Least Restrictive Environment Prevent Falls/ Injury Progression Toward Outcome/Goals Progressing Skin- Improve/Maintain Start: 06/18/19 16:55 Freq: DAILY@699,1899 Status: Active Target: 06/25/19 Protocol: Activity Type Activity Date Activity User E-Sign Co-Sign Detail Recorded Client Recorded Date Recorded By Document 06/19/19 07:00 [id number] 06/19/19 07:23 [id number] 06/19/19 07:00 PMRU Outcome: Skin Skin Risk Level Mild Risk Current Skin Outcome/Goals Maintain/ Improve Skin Integrity Free from Pressure Injury Surgical Incisions Healing Progression Toward Outcome/Goals Progressing - Interdisciplinary Staff Present Casework Manager/Social Work Staff Present: Carmen Phillips LMSW Nursing Staff Present: Bull Everett, BROOK OT Staff Present: Lenora Kent PT Staff Present: Sandy Puente Therapy Staff Present: Claudia Rousseau HOSPICE EDUCATOR Staff Present: Tyler Anaya Medicine Note: Length of Stay: 1 week Anticipated Discharge Destination: Home Tentative Discharge Date: 06/26/19 Discharged to: home
[2019-06-19] MEDS: Atorvastatin* 40 MG TAB PO SCH (17:12)
--- NOTE | 2019-06-19 18:20 | PN ---
Progress Note Date of Service: 06/19/19 Note: JALIL SALTER was visited. Therapy notes read and reviewed. He was discussed in interdisciplinary team rounds. He is moving fairly well but his balance isn' t great. I have asked psychiatry to see about his chronic anxiety Current Medications: Active Medications Generic Name Dose Route Start Last Admin Trade Name Freq PRN Reason Stop Dose Admin Acetaminophen 650 mg 06/18/19 17:09 06/19/19 11:01 Tylenol Tab* PO 650 mg Q6H PRN Administration MILD PAIN or TEMP > 100.4 Albuterol 2 puff 06/18/19 17:19 Ventolin Hfa Inhaler* INH Q6H PRN SOB/WHEEZING Aspirin 81 mg 06/19/19 09:00 06/19/19 08:25 Aspirin Ec Tab* PO 81 mg DAILY JACQUI Administration Atorvastatin Calcium 40 mg 06/19/19 17:00 06/19/19 17:12 Lipitor* PO 40 mg 1700 JACQUI Administration Clopidogrel Bisulfate 75 mg 06/19/19 09:00 06/19/19 08:25 Plavix Tab* PO 75 mg DAILY JACQUI Administration Cyclobenzaprine HCl 10 mg 06/18/19 17:18 06/18/19 20:13 Flexeril Tab* PO 10 mg TID PRN Administration SPASMS Docusate Sodium 100 mg 06/18/19 21:00 06/19/19 08:24 Colace Cap* PO 100 mg BID JACQUI Administration Escitalopram Oxalate 20 mg 06/19/19 09:00 06/19/19 08:35 Lexapro * PO 20 mg DAILY JACQUI Administration Gabapentin 100 mg 06/18/19 21:00 06/19/19 14:15 Neurontin Cap(*) PO 100 mg TID JACQUI Administration Magnesium Hydroxide 30 ml 06/18/19 17:09 Milk Of Magnesia Liq* PO Q6H PRN CONSTIPATION Metoprolol Succinate 25 mg 06/19/19 09:00 06/19/19 08:24 Toprol Xl Tab* PO 25 mg DAILY JACQUI Administration Mupirocin 1 applic 06/18/19 21:00 06/19/19 14:13 Bactroban 2 % Oint* TOPICAL 1 applic TID JACQUI Administration Nicotine Polacrilex 2 mg 06/18/19 19:18 Nicotine Lozenge Mini MT Q2H PRN CRAVING Senna 2 tab 06/18/19 21:00 06/18/19 20:12 Senokot 8.6 Mg Tab* PO 2 tab BEDTIME JACQUI Administration Tramadol HCl 50 mg 06/18/19 17:18 06/19/19 14:13 Ultram* PO 50 mg Q6H PRN Administration PAIN - MODERATE Vital Signs: Vital Signs Temp Pulse Resp BP Pulse Ox 98.3 F 77 14 153/78 96 06/19/19 16:18 06/19/19 16:18 06/19/19 16:25 06/19/19 16:18 06/19/19 16:18 Exam: GENERAL: In no distress NECK: Wound clean LUNGS: Clear HEART: Reg rhythm ABDOMEN: Soft EXTREMITIES: Some intrinsic muscle atrophy in hands. NEUROLOGIC: Strength close to normal in hands Assessment/Plan: 1. Cervical Myelopathy, s/p ACDF C3/4: PT/OT 2. Anxiety: Continue Lexapro. Asked Psychiatry to see. 3. Left toe infection: Bactroban 4. Peripheral Vascular Disease: ASA/Plavix 5. CAD: ASA/Toprol 6. DVT Prophylaxis: SCDs. Surgeon did not want chemical prophylaxis 7. COPD: Albuterol 06/19/19 18:22 06/19/19 18:24
[2019-06-19] MEDS: Senna TAB 8.6 mg* TAB PO SCH (20:31)
[2019-06-20] MEDS: traMADol TAB* 50 MG PO PRN ×4 (00:07→19:25)
[2019-06-20 04:52] LABS: Hematocrit 38 % (42-52); Hemoglobin 13.1 g/dL (14.0-18.0); Mean Corpuscular HGB Conc 35 g/dL (31-36); Mean Corpuscular Hemoglobin 30 pg (27-31); Mean Corpuscular Volume 88 fL (80-94); Mean Platelet Volume 10.5 fL (7.4-10.4); Platelet Count 100 10^3/uL (150-450); Red Blood Count 4.33 10^6 /uL (4.18-5.48); Red Cell Distribution Width 13 % (10-15); White Blood Count 7.8 10^3/uL (3.5-10.8)
[2019-06-20 05:09] LABS: Albumin 3.7 g/dL (3.2-5.2); Albumin/Globulin Ratio 0.8 (1-3); BUN/Creatinine Ratio 27.5 (8-20); Calcium 9.5 mg/dL (8.6-10.3); EGFR Non-African American 116.6 (>60); Globulin 4.5 g/dL (2-4); Total Bilirubin 0.8 mg/dL (0.2-1.0); Total Protein 8.2 g/dL (6.4-8.9)
[2019-06-20 05:18] LABS: Platelet Morphology Large
[2019-06-20 05:19] LABS: ABS Basophils 0.1 10^3/ul (0-0.2); ABS Eosinophils 0.3 10^3/ul (0-0.6); ABS Lymphocytes 1.8 10^3/ul (1.0-4.8); ABS Monocytes 0.8 10^3/ul (0-0.8); ABS Neutrophils 4.8 10^3/ul (1.5-7.7); Eosinophil % 3.8 %; Lymphocyte % 22.9 %
[2019-06-20] MEDS: Cyclobenzaprine TAB* 10 MG PO PRN ×3 (08:09→21:00)
[2019-06-20] MEDS: Acetaminophen TAB* 325 MG PO PRN ×2 (08:09→16:22)
[2019-06-20] MEDS: Clopidogrel TAB* 75 MG PO SCH (08:10)
[2019-06-20] MEDS: Metoprolol Succinate XL TAB* 25 MG PO SCH (08:10)
[2019-06-20] MEDS: Aspirin EC TAB* 81 MG TAB.EC PO SCH (08:10)
[2019-06-20] MEDS: Gabapentin CAP(*) 100 MG PO SCH (08:10)
[2019-06-20] MEDS: Docusate CAP* 100 MG PO SCH ×2 (08:10→20:58)
[2019-06-20] MEDS: Escitalopram * 20 MG TABLET PO SCH (08:10)
[2019-06-20] MEDS: Mupirocin 2% OINT* TUBE TOPICAL SCH ×3 (08:10→21:04)
--- NOTE | 2019-06-20 13:26 | CONS ---
PSYCHIATRIC CONSULTATION DATE OF CONSULT: 06/20/2019. DATE OF ADMISSION: 06/18/2019. ATTENDING PHYSICIAN: Dr. Devaughn Zapata. CONSULTING PHYSICIAN: Dr. Cresencio White. REASON FOR CONSULT: Anxiety. SUBJECTIVE HISTORY: Mr. Thrasher is a 63-year-old, , white male with a history of outpatient treatment for anxiety who is admitted as a transfer to the Physical Medical Rehabilitation Unit from [facility] where he underwent anterior cervical decompression and fusion at C3-4. Upon arrival at [facility], he has been complaining of anxiety, stating that he used to be successfully treated with benzodiazepines in the outpatient setting and is interested in perhaps resuming anxiolytic treatment. When I meet with the patient, he is in the physical therapy gym. He is calm and cooperative, and agrees to meet with me back in his room. He notes that he had been treated by an aging psychiatrist named Dr. Nevarez in [place], [place] who is since . Dr. Nevarez treated him with a combination of escitalopram and diazepam which the patient found helpful; however, the patient started feeling better and thought that he could manage his anxiety by self-medicating of cannabis and discontinued escitalopram and diazepam approximately a year-and-a- half ago. Subsequently, at [facility], he was placed on a small dose of alprazolam and put back on escitalopram; however, he states they discontinued alprazolam, voicing concerns of possible respiratory suppression. The patient endorses a history of depressive episodes in the past; however, he is denying depression now. In fact, he is in good spirits and is future- oriented, stating that he wants to get his health back in shape and would like to be referred to a new primary care physician in the outpatient setting. I did screen him for neurovegetative symptoms of depression which he denied. Symptomatically, mostly what he experiences is a sense of chronic worrying, punctuated by breakthrough panic attacks which recently have been occurring on an almost daily basis. He has not received any relief yet from the recent resumption of escitalopram, but it sounds as though he has been taking this less than a week. He denies any history of manic episodes in the past or any history of violence. PAST PSYCHIATRIC HISTORY: The patient denies any history of suicidality or any inpatient psychiatric hospitalizations. He notes that when he was [id number] and his elder son was diagnosed with brain cancer, his primary care provider placed him on a low dose of valium which was extremely helpful. Later, he went to see Dr. Nevarez in [place], [place], but self-discontinued those appointments. He was receiving escitalopram and diazepam at that time. The patient denies being a victim of abuse or neglect an he denies any history of traumatic brain injury. SUBSTANCE ABUSE HISTORY: The patient is a chronic cannabis smoker. He states that nine years ago when he applied for disability, he answered questions on a questionnaire indicating his routine cannabis use and was sent to the [facility] [place]. He was discharged from their care after submitting several months of clean urine drug screens, after which he promptly resumed cannabis use. I understand that subsequently he has been placed on medical cannabis by the [facility], although he has not picked up any medical marijuana at this point. The patient is a chronic cigarette smoker, smoking between a half-a- pack and two-and-a- half packs per day for close to 40 years. He states that his last cigarette was 16 days ago and he is officially trying to quit at this time. The patient struggled with alcohol as a teenager, stating that he quit alcohol around the age of 22 after several experiences of blacking out and waking up behind the wheel of his truck. He did try cocaine once back in the 1970s, but stated that he did not like this and has not used any since. PAST MEDICAL HISTORY: Significant for thrombocytopenia, cervical myelopathy, chronic neck and back pain, coronary artery disease with history of pacemaker placement, hypertension, hyperlipidemia, peripheral vascular disease. CURRENT MEDICATIONS ON THE INPATIENT SERVICE: 1. Albuterol as needed 2. Aspirin. 3. Lipitor. 4. Plavix. 5. Flexeril. 6. Docusate. 7. Escitalopram 20 mg p.o. daily. 8. Gabapentin 100 mg p.o. t.i.d. 9. Metoprolol. 10. Senna. 11. Tramadol. ALLERGIES: He has no known drug allergies. FAMILY HISTORY: He states that he has two sisters who have been diagnosed with anxiety disorder in the past and received treatment. He is unaware of any suicides in the family. SOCIAL HISTORY: The patient was born and raised in [place], [place] to an intact family. He is the sixth out of eight total children. He states that when he was [id number] his father left the family and his parents . The patient went to school through ninth grade and then dropped out, wanting to be on his own and work for a living. 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 The patient was once. His left him 13 years ago and they are still technically , although and he is currently living with a female girlfriend. The patient has two children through his marriage who are boys, ages 31 and 29, who live out of the area. He also has a 41-year-old son out of [facility] through whom he has four grandchildren. The patient denies being anabaptism or spiritual. He is sexually active with his current girlfriend. He does have a history of three arrests for marijuana possession, but has never done any [facility] time. MENTAL STATUS EXAM: The patient is an aging, white male who has a perez and eye glasses, wearing a green T-shirt and sweatpants. He is calm, cooperative, makes good eye contact and is easy to establish a rapport with. Speech has a normal rate, tone, and volume. Mood appears to be anxious with a full affect. Thought process is linear and goal-directed. Thought content is significant for his desire to complete rehab and then return home to [place], [place] where he lives. He denies suicidal or homicidal ideations. He denies auditory or visual hallucinations. Insight and judgement are fair given his willingness to follow-up with outpatient treatment. Cognitively, he is awake and alert with what would appear to be an average intellect. DIAGNOSES: AXIS I: Generalized anxiety disorder; panic anxiety disorder without agoraphobia; cannabis use disorder. AXIS II: Deferred. IMPRESSION: The patient is a 63-year-old, , white male with a history of anxiety problems, currently admitted to the [facility] following cervical fusion performed at [facility]. He has been complaining of anxiety and is interested in perhaps resuming benzodiazepine treatment. RECOMMENDATIONS TO PRIMARY TEAM: Psychiatry recommends continuation of escitalopram at the current dose of 20 mg p.o. daily. This was just resumed less than a week ago and we would not expect therapeutic benefit for at least another week. In the intervening time, I do not think that benzodiazepines would be warranted due to the fact that they are a risk factor for falls and given the patient's physical status, he is already at some risk for falling. Instead, I would recommend increasing his gabapentin from 100 mg to 300 mg p.o. t.i.d. This plan was discussed with the patient and he was in agreement. He can easily follow-up with a primary care provider in the community for further work on this problem in the outpatient setting. Psychiatry sees no rationale for inpatient psychiatric treatment and, in fact, we are signing off the case at this time; however, we can be reconsulted in the event of any significant changes in the patient's presentation. Thank you for the consult. [id number]/CPS #: [id number] PATRICIO
[2019-06-20] MEDS: Gabapentin CAP(*) 300 MG PO SCH ×2 (14:29→20:58)
[2019-06-20] MEDS: Atorvastatin* 40 MG TAB PO SCH (16:22)
--- NOTE | 2019-06-20 19:00 | PN ---
Progress Note Date of Service: 06/20/19 Note: JALIL SALTER was visited. Therapy notes read and reviewed. Appreciate Dr. White's help with the patient's anxiety. The patient tells me he has had right shoulder pain since he fell on his deck in mid April. He had previous surgery on the shoulder by Dr. Boby Hay. Current Medications: Active Medications Generic Name Dose Route Start Last Admin Trade Name Freq PRN Reason Stop Dose Admin Acetaminophen 650 mg 06/18/19 17:09 06/20/19 16:22 Tylenol Tab* PO 650 mg Q6H PRN Administration MILD PAIN or TEMP > 100.4 Albuterol 2 puff 06/18/19 17:19 Ventolin Hfa Inhaler* INH Q6H PRN SOB/WHEEZING Aspirin 81 mg 06/19/19 09:00 06/20/19 08:10 Aspirin Ec Tab* PO 81 mg DAILY JACQUI Administration Atorvastatin Calcium 40 mg 06/19/19 17:00 06/20/19 16:22 Lipitor* PO 40 mg 1700 JACQUI Administration Clopidogrel Bisulfate 75 mg 06/19/19 09:00 06/20/19 08:10 Plavix Tab* PO 75 mg DAILY JACQUI Administration Cyclobenzaprine HCl 10 mg 06/18/19 17:18 06/20/19 16:22 Flexeril Tab* PO 10 mg TID PRN Administration SPASMS Docusate Sodium 100 mg 06/18/19 21:00 06/20/19 08:10 Colace Cap* PO 100 mg BID JACQUI Administration Escitalopram Oxalate 20 mg 06/19/19 09:00 06/20/19 08:10 Lexapro * PO 20 mg DAILY JACQUI Administration Gabapentin 300 mg 06/20/19 14:00 06/20/19 14:29 Neurontin Cap(*) PO 300 mg TID JACQUI Administration Magnesium Hydroxide 30 ml 06/18/19 17:09 Milk Of Magnesia Liq* PO Q6H PRN CONSTIPATION Metoprolol Succinate 25 mg 06/19/19 09:00 06/20/19 08:10 Toprol Xl Tab* PO 25 mg DAILY JACQUI Administration Mupirocin 1 applic 06/18/19 21:00 06/20/19 15:09 Bactroban 2 % Oint* TOPICAL 1 applic TID JACQUI Administration Nicotine Polacrilex 2 mg 06/18/19 19:18 06/20/19 16:29 Nicotine Lozenge Mini MT 2 mg Q2H PRN Administration CRAVING Senna 2 tab 06/18/19 21:00 06/19/19 20:31 Senokot 8.6 Mg Tab* PO Not Given BEDTIME JACQUI Tramadol HCl 50 mg 06/18/19 17:18 06/20/19 13:16 Ultram* PO 50 mg Q6H PRN Administration PAIN - MODERATE Vital Signs: Vital Signs Temp Pulse Resp BP Pulse Ox 97.8 F 81 18 148/85 100 06/20/19 15:56 06/20/19 15:56 06/20/19 18:27 06/20/19 15:56 06/20/19 17:48 Lab Results: Laboratory Results - last 24 hr 06/20/19 06/20/19 04:42 04:42 WBC 7.8 RBC 4.33 Hgb 13.1 L Hct 38 L MCV 88 MCH 30 MCHC 35 RDW 13 Plt Count 100 L MPV 10.5 H Neut % (Auto) 61.4 Lymph % (Auto) 22.9 Baca % (Auto) 10.6 Eos % (Auto) 3.8 Baso % (Auto) 1.3 Absolute Neuts (auto) 4.8 Absolute Lymphs (auto) 1.8 Absolute Monos (auto) 0.8 Absolute Eos (auto) 0.3 Absolute Basos (auto) 0.1 Absolute Nucleated RBC 0.0 Neutrophils % 60.0 Lymphocytes % 23.0 Monocytes % 9.0 Eosinophils % 7.0 Basophils % 1.0 Nucleated RBC % 0.0 Platelet Morphology Large Normal RBC Morphology Normal Hem Pathologist Commnt Sodium 131 L Potassium 4.0 Chloride 98 L Carbon Dioxide 26 Anion Gap 7 BUN 19 Creatinine 0.69 Est GFR ( Amer) 141.0 Est GFR (Non-Af Amer) 116.6 BUN/Creatinine Ratio 27.5 H Glucose 98 Calcium 9.5 Total Bilirubin 0.80 AST 15 ALT 13 Alkaline Phosphatase 94 Total Protein 8.2 Albumin 3.7 Globulin 4.5 H Albumin/Globulin Ratio 0.8 L Exam: GENERAL: In no distress NECK: Wound clean LUNGS: Clear HEART: Reg rhythm ABDOMEN: Soft EXTREMITIES: Some intrinsic muscle atrophy in hands. NEUROLOGIC: Strength close to normal in hands Assessment/Plan: 1. Cervical Myelopathy, s/p ACDF C3/4: PT/OT 2. Anxiety: Continue Lexapro. Dr White from Psychiatry saw patient and increased his gabapentin to 300 mg TID. 3. Left toe infection: Bactroban 4. Peripheral Vascular Disease: ASA/Plavix 5. CAD: ASA/Toprol 6. DVT Prophylaxis: SCDs. Surgeon did not want chemical prophylaxis 7. COPD: Albuterol 8. Right shoulder pain: Order x-ray 06/20/19 19:00
[2019-06-20] MEDS: Senna TAB 8.6 mg* TAB PO SCH (20:41)
[2019-06-21] MEDS: Acetaminophen TAB* 325 MG PO PRN ×3 (00:52→12:38)
[2019-06-21] MEDS: Cyclobenzaprine TAB* 10 MG PO PRN ×2 (06:35→14:25)
[2019-06-21] MEDS: traMADol TAB* 50 MG PO PRN ×2 (07:51→16:35)
[2019-06-21] MEDS: Metoprolol Succinate XL TAB* 25 MG PO SCH (07:51)
[2019-06-21] MEDS: Escitalopram * 20 MG TABLET PO SCH (07:51)
[2019-06-21] MEDS: Clopidogrel TAB* 75 MG PO SCH (07:51)
[2019-06-21] MEDS: Aspirin EC TAB* 81 MG TAB.EC PO SCH (07:51)
[2019-06-21] MEDS: Docusate CAP* 100 MG PO SCH ×2 (07:51→21:50)
[2019-06-21] MEDS: Gabapentin CAP(*) 300 MG PO SCH ×3 (07:51→21:50)
[2019-06-21] MEDS: Mupirocin 2% OINT* TUBE TOPICAL SCH ×3 (11:16→22:00)
--- NOTE | 2019-06-21 15:33 | PN ---
Progress Note Date of Service: 06/21/19 Note: JALIL SALTER was visited. Therapy notes read and reviewed. He has no specific complaints and thinks he is doing well. Pain is better and he is less anxious. X -ray of right shoulder negative for any fracture Current Medications: Active Medications Generic Name Dose Route Start Last Admin Trade Name Freq PRN Reason Stop Dose Admin Acetaminophen 650 mg 06/18/19 17:09 06/21/19 12:38 Tylenol Tab* PO 650 mg Q6H PRN Administration MILD PAIN or TEMP > 100.4 Albuterol 2 puff 06/18/19 17:19 Ventolin Hfa Inhaler* INH Q6H PRN SOB/WHEEZING Aspirin 81 mg 06/19/19 09:00 06/21/19 07:51 Aspirin Ec Tab* PO 81 mg DAILY JACQUI Administration Atorvastatin Calcium 40 mg 06/19/19 17:00 06/20/19 16:22 Lipitor* PO 40 mg 1700 JACQUI Administration Clopidogrel Bisulfate 75 mg 06/19/19 09:00 06/21/19 07:51 Plavix Tab* PO 75 mg DAILY JACQUI Administration Cyclobenzaprine HCl 10 mg 06/18/19 17:18 06/21/19 14:25 Flexeril Tab* PO 10 mg TID PRN Administration SPASMS Docusate Sodium 100 mg 06/18/19 21:00 06/21/19 07:51 Colace Cap* PO 100 mg BID JACQUI Administration Escitalopram Oxalate 20 mg 06/19/19 09:00 06/21/19 07:51 Lexapro * PO 20 mg DAILY JACQUI Administration Gabapentin 300 mg 06/20/19 14:00 06/21/19 14:28 Neurontin Cap(*) PO 300 mg TID JACQUI Administration Magnesium Hydroxide 30 ml 06/18/19 17:09 Milk Of Magnesia Liq* PO Q6H PRN CONSTIPATION Metoprolol Succinate 25 mg 06/19/19 09:00 06/21/19 07:51 Toprol Xl Tab* PO 25 mg DAILY JACQUI Administration Mupirocin 1 applic 06/18/19 21:00 06/21/19 14:34 Bactroban 2 % Oint* TOPICAL 1 applic TID JACQUI Administration Nicotine Polacrilex 2 mg 06/18/19 19:18 06/20/19 16:29 Nicotine Lozenge Mini MT 2 mg Q2H PRN Administration CRAVING Senna 2 tab 06/18/19 21:00 06/20/19 20:41 Senokot 8.6 Mg Tab* PO Not Given BEDTIME JACQUI Tramadol HCl 50 mg 06/18/19 17:18 06/21/19 07:51 Ultram* PO 50 mg Q6H PRN Administration PAIN - MODERATE Vital Signs: Vital Signs Temp Pulse Resp BP Pulse Ox 97.6 F 75 18 146/81 100 06/21/19 05:00 06/21/19 05:00 06/21/19 14:28 06/21/19 05:00 06/21/19 08:00 Exam: GENERAL: In no distress NECK: Wound clean LUNGS: Clear HEART: Reg rhythm ABDOMEN: Soft EXTREMITIES: Some intrinsic muscle atrophy in hands. NEUROLOGIC: Strength close to normal in hands Assessment/Plan: 1. Cervical Myelopathy, s/p ACDF C3/4: PT/OT 2. Anxiety: Continue Lexapro. Dr White from Psychiatry saw patient and increased his gabapentin to 300 mg TID. 3. Left toe infection: Bactroban 4. Peripheral Vascular Disease: ASA/Plavix 5. CAD: ASA/Toprol 6. DVT Prophylaxis: SCDs. Surgeon did not want chemical prophylaxis 7. COPD: Albuterol 8. Right shoulder pain: x-ray negative 06/21/19 15:34
[2019-06-21] MEDS: Atorvastatin* 40 MG TAB PO SCH (16:35)
[2019-06-21] MEDS: Senna TAB 8.6 mg* TAB PO SCH (21:50)
[2019-06-22] MEDS: Acetaminophen TAB* 325 MG PO PRN ×3 (04:51→18:45)
[2019-06-22] MEDS: Cyclobenzaprine TAB* 10 MG PO PRN ×3 (04:56→19:43)
[2019-06-22] MEDS: traMADol TAB* 50 MG PO PRN ×3 (06:59→21:41)
[2019-06-22] MEDS: Mupirocin 2% OINT* TUBE TOPICAL SCH ×3 (08:09→21:41)
[2019-06-22] MEDS: Docusate CAP* 100 MG PO SCH ×2 (08:09→21:41)
[2019-06-22] MEDS: Gabapentin CAP(*) 300 MG PO SCH ×3 (08:09→21:45)
[2019-06-22] MEDS: Metoprolol Succinate XL TAB* 25 MG PO SCH (08:09)
[2019-06-22] MEDS: Clopidogrel TAB* 75 MG PO SCH (08:09)
[2019-06-22] MEDS: Aspirin EC TAB* 81 MG TAB.EC PO SCH (08:09)
[2019-06-22] MEDS: Escitalopram * 20 MG TABLET PO SCH (08:09)
--- NOTE | 2019-06-22 16:44 | PN ---
Progress Note Date of Service: 06/22/19 Note: JALIL SALTER was visited. Therapy notes read and reviewed. He has no complaints and seems to be walking better. Hands remain a little weak with roll picker. He thinks sensation in his feet is waking up a little Current Medications: Active Medications Generic Name Dose Route Start Last Admin Trade Name Freq PRN Reason Stop Dose Admin Acetaminophen 650 mg 06/18/19 17:09 06/22/19 12:21 Tylenol Tab* PO 650 mg Q6H PRN Administration MILD PAIN or TEMP > 100.4 Albuterol 2 puff 06/18/19 17:19 Ventolin Hfa Inhaler* INH Q6H PRN SOB/WHEEZING Aspirin 81 mg 06/19/19 09:00 06/22/19 08:09 Aspirin Ec Tab* PO 81 mg DAILY JACQUI Administration Atorvastatin Calcium 40 mg 06/19/19 17:00 06/21/19 16:35 Lipitor* PO 40 mg 1700 JACQUI Administration Clopidogrel Bisulfate 75 mg 06/19/19 09:00 06/22/19 08:09 Plavix Tab* PO 75 mg DAILY JACQUI Administration Cyclobenzaprine HCl 10 mg 06/18/19 17:18 06/22/19 12:21 Flexeril Tab* PO 10 mg TID PRN Administration SPASMS Docusate Sodium 100 mg 06/18/19 21:00 06/22/19 08:09 Colace Cap* PO 100 mg BID JACQUI Administration Escitalopram Oxalate 20 mg 06/19/19 09:00 06/22/19 08:09 Lexapro * PO 20 mg DAILY JACQUI Administration Gabapentin 300 mg 06/20/19 14:00 06/22/19 14:31 Neurontin Cap(*) PO 300 mg TID JACQUI Administration Magnesium Hydroxide 30 ml 06/18/19 17:09 Milk Of Magnesia Liq* PO Q6H PRN CONSTIPATION Metoprolol Succinate 25 mg 06/19/19 09:00 06/22/19 08:09 Toprol Xl Tab* PO 25 mg DAILY JACQUI Administration Mupirocin 1 applic 06/18/19 21:00 06/22/19 14:32 Bactroban 2 % Oint* TOPICAL 1 applic TID JACQUI Administration Nicotine Polacrilex 2 mg 06/18/19 19:18 06/20/19 16:29 Nicotine Lozenge Mini MT 2 mg Q2H PRN Administration CRAVING Senna 2 tab 06/18/19 21:00 06/21/19 21:50 Senokot 8.6 Mg Tab* PO 2 tab BEDTIME JACQUI Administration Tramadol HCl 50 mg 06/18/19 17:18 06/22/19 14:31 Ultram* PO 50 mg Q6H PRN Administration PAIN - MODERATE Vital Signs: Vital Signs Temp Pulse Resp BP Pulse Ox 98.2 F 81 16 140/74 100 06/22/19 16:00 06/22/19 16:00 06/22/19 16:00 06/22/19 16:00 06/22/19 16:00 Exam: GENERAL: In no distress NECK: Wound clean LUNGS: Clear HEART: Reg rhythm ABDOMEN: Soft EXTREMITIES: Some intrinsic muscle atrophy in hands. NEUROLOGIC: Strength close to normal in hands but roll picker 4/5 and finger extension 4/5 Assessment/Plan: 1. Cervical Myelopathy, s/p ACDF C3/4: PT/OT 2. Anxiety: Continue Lexapro. Dr White from Psychiatry saw patient and increased his gabapentin to 300 mg TID. Less anxious 3. Left toe infection: Bactroban 4. Peripheral Vascular Disease: ASA/Plavix 5. CAD: ASA/Toprol 6. DVT Prophylaxis: SCDs. Surgeon did not want chemical prophylaxis 7. COPD: Albuterol 8. Right shoulder pain: x-ray negative 06/22/19 16:45
[2019-06-22] MEDS: Atorvastatin* 40 MG TAB PO SCH (17:05)
[2019-06-22] MEDS: Senna TAB 8.6 mg* TAB PO SCH (21:41)
[2019-06-23] MEDS: Acetaminophen TAB* 325 MG PO PRN ×4 (02:13→23:57)
[2019-06-23] MEDS: Cyclobenzaprine TAB* 10 MG PO PRN ×3 (05:13→20:15)
[2019-06-23] MEDS: traMADol TAB* 50 MG PO PRN ×3 (05:13→19:18)
[2019-06-23] MEDS: Aspirin EC TAB* 81 MG TAB.EC PO SCH (08:07)
[2019-06-23] MEDS: Clopidogrel TAB* 75 MG PO SCH (08:07)
[2019-06-23] MEDS: Escitalopram * 20 MG TABLET PO SCH (08:08)
[2019-06-23] MEDS: Gabapentin CAP(*) 300 MG PO SCH ×3 (08:08→20:15)
[2019-06-23] MEDS: Metoprolol Succinate XL TAB* 25 MG PO SCH (08:11)
[2019-06-23] MEDS: Docusate CAP* 100 MG PO SCH ×2 (08:12→20:15)
[2019-06-23] MEDS: Mupirocin 2% OINT* TUBE TOPICAL SCH ×3 (08:17→20:20)
--- NOTE | 2019-06-23 10:51 | PN ---
Progress Note Date of Service: 06/23/19 Note: JALIL SALTER was visited. Therapy notes read and reviewed. He has no complaints today. Still with hand weakness, left>right Current Medications: Active Medications Generic Name Dose Route Start Last Admin Trade Name Freq PRN Reason Stop Dose Admin Acetaminophen 650 mg 06/18/19 17:09 06/23/19 08:12 Tylenol Tab* PO 650 mg Q6H PRN Administration MILD PAIN or TEMP > 100.4 Albuterol 2 puff 06/18/19 17:19 Ventolin Hfa Inhaler* INH Q6H PRN SOB/WHEEZING Aspirin 81 mg 06/19/19 09:00 06/23/19 08:07 Aspirin Ec Tab* PO 81 mg DAILY JACQUI Administration Atorvastatin Calcium 40 mg 06/19/19 17:00 06/22/19 17:05 Lipitor* PO 40 mg 1700 JACQUI Administration Clopidogrel Bisulfate 75 mg 06/19/19 09:00 06/23/19 08:07 Plavix Tab* PO 75 mg DAILY JACQUI Administration Cyclobenzaprine HCl 10 mg 06/18/19 17:18 06/23/19 05:13 Flexeril Tab* PO 10 mg TID PRN Administration SPASMS Docusate Sodium 100 mg 06/18/19 21:00 06/23/19 08:12 Colace Cap* PO 100 mg BID JACQUI Administration Escitalopram Oxalate 20 mg 06/19/19 09:00 06/23/19 08:08 Lexapro * PO 20 mg DAILY JACQUI Administration Gabapentin 300 mg 06/20/19 14:00 06/23/19 08:08 Neurontin Cap(*) PO 300 mg TID JACQUI Administration Magnesium Hydroxide 30 ml 06/18/19 17:09 Milk Of Magnesia Liq* PO Q6H PRN CONSTIPATION Metoprolol Succinate 25 mg 06/19/19 09:00 06/23/19 08:11 Toprol Xl Tab* PO 25 mg DAILY JACQUI Administration Mupirocin 1 applic 06/18/19 21:00 06/23/19 08:17 Bactroban 2 % Oint* TOPICAL 1 applic TID JACQUI Administration Nicotine Polacrilex 2 mg 06/18/19 19:18 06/20/19 16:29 Nicotine Lozenge Mini MT 2 mg Q2H PRN Administration CRAVING Senna 2 tab 06/18/19 21:00 06/22/19 21:41 Senokot 8.6 Mg Tab* PO 2 tab BEDTIME JACQUI Administration Tramadol HCl 50 mg 06/18/19 17:18 06/23/19 05:13 Ultram* PO 50 mg Q6H PRN Administration PAIN - MODERATE Vital Signs: Vital Signs Temp Pulse Resp BP Pulse Ox 97.5 F 74 14 151/80 100 06/23/19 05:11 06/23/19 05:11 06/23/19 08:20 06/23/19 05:11 06/23/19 05:11 Exam: GENERAL: In no distress NECK: Wound clean LUNGS: Clear HEART: Reg rhythm ABDOMEN: Soft EXTREMITIES: Some intrinsic muscle atrophy in hands. 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 Cervical Myelopathy, s/p ACDF C3/4: PT/OT 2. Anxiety: Continue Lexapro. Dr White from Psychiatry saw patient and increased his gabapentin to 300 mg TID. Less anxious 3. Left toe infection: Bactroban 4. Peripheral Vascular Disease: ASA/Plavix 5. CAD: ASA/Toprol 6. DVT Prophylaxis: SCDs. Surgeon did not want chemical prophylaxis 7. COPD: Albuterol 8. Right shoulder pain: x-ray negative 06/23/19 10:51
[2019-06-23] MEDS: Atorvastatin* 40 MG TAB PO SCH (16:55)
[2019-06-23] MEDS: Senna TAB 8.6 mg* TAB PO SCH (20:15)
[2019-06-24] MEDS: traMADol TAB* 50 MG PO PRN ×3 (03:31→15:52)
[2019-06-24] MEDS: Cyclobenzaprine TAB* 10 MG PO PRN ×3 (05:00→21:12)
[2019-06-24] MEDS: Acetaminophen TAB* 325 MG PO PRN ×3 (06:08→17:55)
[2019-06-24] MEDS: Clopidogrel TAB* 75 MG PO SCH (07:57)
[2019-06-24] MEDS: Metoprolol Succinate XL TAB* 25 MG PO SCH (07:57)
[2019-06-24] MEDS: Escitalopram * 20 MG TABLET PO SCH (07:57)
[2019-06-24] MEDS: Aspirin EC TAB* 81 MG TAB.EC PO SCH (07:58)
[2019-06-24] MEDS: Gabapentin CAP(*) 300 MG PO SCH ×3 (07:58→21:12)
[2019-06-24] MEDS: Docusate CAP* 100 MG PO SCH ×2 (07:58→21:11)
[2019-06-24] MEDS: Mupirocin 2% OINT* TUBE TOPICAL SCH ×3 (08:23→21:14)
--- NOTE | 2019-06-24 16:40 | PN ---
Progress Note Date of Service: 06/24/19 Note: JALIL SALTER was visited. Nursing notes read and reviewed. He still reports stiff and weak hands, but otherwise feels ok. Current Medications: Active Medications Generic Name Dose Route Start Last Admin Trade Name Freq PRN Reason Stop Dose Admin Acetaminophen 650 mg 06/18/19 17:09 06/24/19 11:57 Tylenol Tab* PO 650 mg Q6H PRN Administration MILD PAIN or TEMP > 100.4 Albuterol 2 puff 06/18/19 17:19 Ventolin Hfa Inhaler* INH Q6H PRN SOB/WHEEZING Aspirin 81 mg 06/19/19 09:00 06/24/19 07:58 Aspirin Ec Tab* PO 81 mg DAILY JACQUI Administration Atorvastatin Calcium 40 mg 06/19/19 17:00 06/23/19 16:55 Lipitor* PO 40 mg 1700 JACQUI Administration Clopidogrel Bisulfate 75 mg 06/19/19 09:00 06/24/19 07:57 Plavix Tab* PO 75 mg DAILY JACQUI Administration Cyclobenzaprine HCl 10 mg 06/18/19 17:18 06/24/19 13:02 Flexeril Tab* PO 10 mg TID PRN Administration SPASMS Docusate Sodium 100 mg 06/18/19 21:00 06/24/19 07:58 Colace Cap* PO 100 mg BID JACQUI Administration Escitalopram Oxalate 20 mg 06/19/19 09:00 06/24/19 07:57 Lexapro * PO 20 mg DAILY JACQUI Administration Gabapentin 300 mg 06/20/19 14:00 06/24/19 13:02 Neurontin Cap(*) PO 300 mg TID JACQUI Administration Magnesium Hydroxide 30 ml 06/18/19 17:09 Milk Of Magnesia Liq* PO Q6H PRN CONSTIPATION Metoprolol Succinate 25 mg 06/19/19 09:00 06/24/19 07:57 Toprol Xl Tab* PO 25 mg DAILY JACQUI Administration Mupirocin 1 applic 06/18/19 21:00 06/24/19 13:03 Bactroban 2 % Oint* TOPICAL Not Given TID JACQUI Nicotine Polacrilex 2 mg 06/18/19 19:18 06/20/19 16:29 Nicotine Lozenge Mini MT 2 mg Q2H PRN Administration CRAVING Senna 2 tab 06/18/19 21:00 06/23/19 20:15 Senokot 8.6 Mg Tab* PO 2 tab BEDTIME JACQUI Administration Tramadol HCl 50 mg 06/18/19 17:18 06/24/19 15:52 Ultram* PO 50 mg Q6H PRN Administration PAIN - MODERATE Vital Signs: Vital Signs Temp Pulse Resp BP Pulse Ox 97.6 F 74 16 150/72 100 06/24/19 15:49 06/24/19 15:49 06/24/19 16:17 06/24/19 15:49 06/24/19 16:17 Exam: GENERAL: In no distress NECK: Wound clean LUNGS: Clear HEART: Reg rhythm ABDOMEN: Soft EXTREMITIES: Some intrinsic muscle atrophy in hands. 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 Cervical Myelopathy, s/p ACDF C3/4: PT/OT 2. Anxiety: Continue Lexapro. Dr White from Psychiatry saw patient and increased his gabapentin to 300 mg TID. Less anxious 3. Left toe infection: Bactroban 4. Peripheral Vascular Disease: ASA/Plavix 5. CAD: ASA/Toprol 6. DVT Prophylaxis: SCDs. Surgeon did not want chemical prophylaxis 7. COPD: Albuterol 8. Right shoulder pain: x-ray negative 06/24/19 16:41
[2019-06-24] MEDS: Atorvastatin* 40 MG TAB PO SCH (16:51)
[2019-06-24] MEDS: Senna TAB 8.6 mg* TAB PO SCH (21:11)
[2019-06-25] MEDS: traMADol TAB* 50 MG PO PRN ×2 (03:23→17:38)
[2019-06-25] MEDS: Cyclobenzaprine TAB* 10 MG PO PRN ×3 (03:23→20:46)
[2019-06-25] MEDS: Gabapentin CAP(*) 300 MG PO SCH ×3 (07:33→20:46)
[2019-06-25] MEDS: Aspirin EC TAB* 81 MG TAB.EC PO SCH (07:33)
[2019-06-25] MEDS: Clopidogrel TAB* 75 MG PO SCH (07:33)
[2019-06-25] MEDS: Docusate CAP* 100 MG PO SCH ×2 (07:33→20:46)
[2019-06-25] MEDS: Escitalopram * 20 MG TABLET PO SCH (07:33)
[2019-06-25] MEDS: Metoprolol Succinate XL TAB* 25 MG PO SCH (07:33)
[2019-06-25] MEDS: Mupirocin 2% OINT* TUBE TOPICAL SCH ×3 (12:40→20:53)
--- NOTE | 2019-06-25 12:49 | PN ---
Progress Note Date of Service: 06/25/19 Note: JALIL SALTER was visited. Therapy notes read and reviewed. I spoke with his therapists and they agree he is ready to go home tomorrow. The patient feels ready as well. Current Medications: Active Medications Generic Name Dose Route Start Last Admin Trade Name Freq PRN Reason Stop Dose Admin Acetaminophen 650 mg 06/18/19 17:09 06/24/19 17:55 Tylenol Tab* PO 650 mg Q6H PRN Administration MILD PAIN or TEMP > 100.4 Albuterol 2 puff 06/18/19 17:19 Ventolin Hfa Inhaler* INH Q6H PRN SOB/WHEEZING Aspirin 81 mg 06/19/19 09:00 06/25/19 07:33 Aspirin Ec Tab* PO 81 mg DAILY JACQUI Administration Atorvastatin Calcium 40 mg 06/19/19 17:00 06/24/19 16:51 Lipitor* PO 40 mg 1700 JACQUI Administration Clopidogrel Bisulfate 75 mg 06/19/19 09:00 06/25/19 07:33 Plavix Tab* PO 75 mg DAILY JACQUI Administration Cyclobenzaprine HCl 10 mg 06/18/19 17:18 06/25/19 03:23 Flexeril Tab* PO 10 mg TID PRN Administration SPASMS Docusate Sodium 100 mg 06/18/19 21:00 06/25/19 07:33 Colace Cap* PO 100 mg BID JACQUI Administration Escitalopram Oxalate 20 mg 06/19/19 09:00 06/25/19 07:33 Lexapro * PO 20 mg DAILY JACQUI Administration Gabapentin 300 mg 06/20/19 14:00 06/25/19 07:33 Neurontin Cap(*) PO 300 mg TID JACQUI Administration Magnesium Hydroxide 30 ml 06/18/19 17:09 Milk Of Magnesia Liq* PO Q6H PRN CONSTIPATION Metoprolol Succinate 25 mg 06/19/19 09:00 06/25/19 07:33 Toprol Xl Tab* PO 25 mg DAILY JACQUI Administration Mupirocin 1 applic 06/18/19 21:00 06/25/19 07:35 Bactroban 2 % Oint* TOPICAL 1 applic TID JACQUI Administration Nicotine Polacrilex 2 mg 06/18/19 19:18 06/20/19 16:29 Nicotine Lozenge Mini MT 2 mg Q2H PRN Administration CRAVING Senna 2 tab 06/18/19 21:00 06/24/19 21:11 Senokot 8.6 Mg Tab* PO 2 tab BEDTIME JACQUI Administration Tramadol HCl 50 mg 06/18/19 17:18 06/25/19 03:23 Ultram* PO 50 mg Q6H PRN Administration PAIN - MODERATE Vital Signs: Vital Signs Temp Pulse Resp BP Pulse Ox 97.8 F 78 18 157/81 100 06/25/19 05:01 06/25/19 05:01 06/25/19 10:03 06/25/19 05:01 06/25/19 05:01 Exam: GENERAL: In no distress NECK: Wound clean LUNGS: Clear HEART: Reg rhythm ABDOMEN: Soft EXTREMITIES: Some intrinsic muscle atrophy in hands. NEUROLOGIC: Strength close to normal in hands but patternmaker 4/5 and finger extension 4/5, spasticity noted Assessment/Plan: 1. Cervical Myelopathy, s/p ACDF C3/4: PT/OT 2. Anxiety: Continue Lexapro. Dr White from Psychiatry saw patient and increased his gabapentin to 300 mg TID. Less anxious 3. Left toe infection: Bactroban 4. Peripheral Vascular Disease: ASA/Plavix 5. CAD: ASA/Toprol 6. DVT Prophylaxis: SCDs. Surgeon did not want chemical prophylaxis 7. COPD: Albuterol 8. Right shoulder pain: x-ray negative 06/25/19 12:49
[2019-06-25] MEDS: Atorvastatin* 40 MG TAB PO SCH (16:20)
[2019-06-25] MEDS: Acetaminophen TAB* 325 MG PO PRN (16:20)
[2019-06-25] MEDS: Senna TAB 8.6 mg* TAB PO SCH (20:46)
[2019-06-26] MEDS: Cyclobenzaprine TAB* 10 MG PO PRN ×2 (03:39→11:06)
[2019-06-26] MEDS: traMADol TAB* 50 MG PO PRN ×2 (03:40→11:07)
[2019-06-26] MEDS: Acetaminophen TAB* 325 MG PO PRN (06:05)
[2019-06-26 06:18] VITALS: BP 145/76
[2019-06-26] MEDS: Aspirin EC TAB* 81 MG TAB.EC PO SCH (09:04)
[2019-06-26] MEDS: Escitalopram * 20 MG TABLET PO SCH (09:04)
[2019-06-26] MEDS: Gabapentin CAP(*) 300 MG PO SCH (09:04)
[2019-06-26] MEDS: Clopidogrel TAB* 75 MG PO SCH (09:04)
[2019-06-26] MEDS: Metoprolol Succinate XL TAB* 25 MG PO SCH (09:04)
[2019-06-26] MEDS: Mupirocin 2% OINT* TUBE TOPICAL SCH (09:04)
[2019-06-26] MEDS: Docusate CAP* 100 MG PO SCH (09:04)
--- NOTE | 2019-06-29 23:11 | DS ---
CC: Dr. Garcia * DISCHARGE SUMMARY: DATE OF ADMISSION: 06/18/19 DATE OF DISCHARGE: 06/26/19 DISCHARGE DIAGNOSES: 1. Cervical myelopathy. 2. Anterior cervical decompression and fusion, C3 through C4. 3. Idiopathic thrombocytopenic purpura. 4. Compression fractures at T9 and T11 as well as T12. 5. Peripheral vascular disease. 6. Anxiety. 7. Status post pacemaker placement. 8. Coronary artery disease. 9. Hypertension. HISTORY OF ILLNESS AND HOSPITAL COURSE: For complete history of the events leading up to his rehab stay, please see the history and physical dictated by me on 06/18/19. While on the rehab unit, the patient was fairly stable from medical point of view. He was seen by Psychiatry at his request. Psychiatry increased his gabapentin and the patient felt less anxious as a result. The patient otherwise is largely medically stable. His wound appeared to be clean and healing well. He was maintained on aspirin and Plavix for his peripheral vascular disease. The patient remained with hand weakness and spasticity but otherwise seemed to be stable. The patient was seen by both physical and occupational therapy while on the rehab unit and made good gains with both disciplines. With physical therapy at the time of admission, the patient required mod assist to do a transfer. He was able to ambulate with mod assist about 50 feet with a rolling walker. With occupational therapy at the time of admission, the patient required mod assist for upper body dressing, mod assist for lower body dressing, mod assist for toileting, mod assist for toilet transfers. By the time of discharge, the patient was independent with transfers , independent ambulating 150 feet with a rolling walker, independent dressing, independent toileting, independent with toilet transfers. The patient was discharged home on 06/26/19. DISCHARGE DIET: Regular. DISCHARGE MEDICATIONS: 1. Aspirin 81 mg daily. 2. Lipitor 40 mg daily. 3. Plavix 75 mg daily. 4. Flexeril 10 mg 3 times a day as needed. 5. Gabapentin 300 mg 3 times daily. 6. Toprol-XL 25 mg daily. 7. Tramadol 50 mg every 6 hours as needed. 8. Lexapro 20 mg daily. 9. Nitroglycerin 0.4 mg sublingually as needed for angina. 10. Albuterol inhaler 1 to 2 puffs every 6 hours as needed. SERVICES AFTER DISCHARGE: The patient will have outpatient physical therapy after discharge. FOLLOWUP: He will follow up with the Hematology Clinic at [place] in 1 to 2 weeks regarding his ITP. He follows up with the neurosurgeon at [place], Dr. Jass Tinoco in 1 to 2 weeks. He will follow up with Constance Manuel in the Pain Clinic as well as his primary care doctor, Dr. Garcia. CONDITION AT DISCHARGE: Stable. DISPOSITION: Home. [id number]/[facility] #: [id number] [facility]
== END 2019-06-26 12:51 | disposition home or self-care (01) | DRG 860 ==
LOC: PMRU 13:15
PROVIDERS: ADMIT Physical Medicine & Rehabilitation; ATTEND Physical Medicine & Rehabilitation
PROC: F07Z5ZZ Bed Mobility Treatment (ICD-10-PCS; principal; 2019-06-18)
PROC: F07Z9ZZ Gait Training/Functional Ambulation Treatment (ICD-10-PCS; 2019-06-18)
PROC: F07Z8ZZ Transfer Training Treatment (ICD-10-PCS; 2019-06-18)
PROC: F08Z0ZZ Bathing/Showering Techniques Treatment (ICD-10-PCS; 2019-06-18)
PROC: F08Z1ZZ Dressing Techniques Treatment (ICD-10-PCS; 2019-06-18)
PROC: F08Z2ZZ Grooming/Personal Hygiene Treatment (ICD-10-PCS; 2019-06-18)
DX: Z47.89 Encounter for other orthopedic aftercare (principal); M80.08XA Age-related osteoporosis with current pathological fracture, vertebra(e), initial encounter for fracture; D69.3 Immune thrombocytopenic purpura; Z98.1 Arthrodesis status; M47.814 Spondylosis without myelopathy or radiculopathy, thoracic region; M47.816 Spondylosis without myelopathy or radiculopathy, lumbar region; F41.9 Anxiety disorder, unspecified; I25.10 Atherosclerotic heart disease of native coronary artery without angina pectoris; I10 Essential (primary) hypertension; E78.2 Mixed hyperlipidemia; I73.9 Peripheral vascular disease, unspecified; F32.9 Major depressive disorder, single episode, unspecified; J44.9 Chronic obstructive pulmonary disease, unspecified; M62.542 Muscle wasting and atrophy, not elsewhere classified, left hand; M62.541 Muscle wasting and atrophy, not elsewhere classified, right hand; M25.511 Pain in right shoulder; L97.529 Non-pressure chronic ulcer of other part of left foot with unspecified severity; L08.9 Local infection of the skin and subcutaneous tissue, unspecified; Z79.02 Long term (current) use of antithrombotics/antiplatelets; Z95.0 Presence of cardiac pacemaker; Z79.82 Long term (current) use of aspirin; Z79.899 Other long term (current) drug therapy; Z88.8 Allergy status to other drugs, medicaments and biological substances; Z87.891 Personal history of nicotine dependence
CPT/HCPCS: 36415; 80053; 85025; 85060; 90686; A9270-GY

== ENCOUNTER 2019-08-05 10:37 | Emergency (ER) | payer OTHER ==
--- OUTSIDE RECORDS SUMMARY | 2019-08-05 10:43 | XMS REPORT | Summary of Care ---
:1955 Author Organization [facility] Address [address] [facility] [place] [address] Care Team Providers Name Role Phone None, [place] Unavailable Unavailable None, [place] Primary Care Provider Unavailable Reason for Visit Reason Comments Post-op Follow-up Neck Pain right shoulder pain. Numbness both hands/ finger & also having it in both feet/toes Hip Pain left hip area Encounter Details Date Type Department Care Team Description 07/02/2019 Office Visit [facility] Neurosurgery [place], Spinal stenosis of [address] [facility] [place] [address] 1 Daily [facility] (Primary Dx) [phone] [place] [id number] [phone] Allergies Active Allergy Reactions Severity Noted Date Comments Gabapentin GI Reaction 05/28/2019 documented as of this encounter (statuses as of 07/02/2019) Medications Medication Sig Dispensed Refills Start Date End Date Status tramadol (ULTRAM) 50 MG Take 50 mg by 0 Active Oral Tab mouth EVERY EIGHT HOURS. atorvastatin (LIPITOR) Take 40 mg by 0 Active 40 MG Oral Tab mouth EVERY EVENING. (PM) cyclobenzaprine Take 10 mg by 0 Active (FLEXERIL) 10 MG Oral mouth THREE TIMES Tab DAILY NEEDED. ASPIRIN 81 PO Take 1 Tab by 0 Active mouth DAILY. (AM) clopidogrel (PLAVIX) 75 Take 75 mg by 0 Active MG Oral Tab mouth DAILY. (AM) nitroglycerin Place 0.4 mg 0 Active (NITROSTAT) 0.4 MG under tongue Sublingual SL Tab EVERY FIVE MINUTES NEEDED for chest pain. acetaminophen (TYLENOL) Take 650 mg by 0 Active 325 MG Oral Tab mouth THREE TIMES DAILY. escitalopram (LEXAPRO) Take 20 mg by 0 Active 20 MG Oral Tab mouth DAILY. (AM) Metoprolol Succinate 25 Take 1 Tab by 0 Active MG Oral Capsule ER 24 mouth DAILY. (PM) Hour Sprinkle Nicotine (NICOTROL IN) Take 6 Puffs by 0 Active inhalation if needed (up to 16x per day). Albuterol Sulfate Take 2 Puffs by 0 Active (VENTOLIN HFA IN) inhalation NEEDED. gabapentin (NEURONTIN) Take 1 Cap by 90 Cap 0 06/17/2019 Active 100 MG Oral Cap mouth THREE TIMES DAILY. Additional information Patient taking differently: 300 mg Oral TID, Reported on 07/02/2019 8:30 AM sennosides-docusate sodium Take 1 Tab by 60 Tab 0 06/17/2019 Active (SENOKOT-S, SENNA S) mouth TWICE 8.6-50 MG Oral Tab DAILY. polyethylene glycol Take 1 PKT by 7 Packet 0 06/17/201907/02/ Discontinued (MIRALAX) Oral Pack mouth DAILY 2019 (Patient stopped NEEDED the medication) (constipation ). documented as of this encounter (statuses as of 07/02/2019) Active Problems Problem Noted Date Spinal stenosis of cervical region 06/17/2019 Weakness 05/29/2019 documented as of this encounter (statuses as of 07/02/2019) Social History Tobacco Use Types Packs/Day Years Used Date Current Every Day Smoker Cigarettes 0.5 40 Smokeless Tobacco: Never Used Tobacco Cessation: Ready to Quit: No; Counseling Given: Yes Alcohol Habits Answer Date Recorded How often do you have a drink containing alcohol? Never 05/28/2019 How many drinks containing alcohol do you have on a typical Not asked day when you are drinking? How often do you have six or more drinks on one occasion? Not asked Social Isolation Answer Date Recorded In a typical week, how many times do you talk on the phone Twice a week 05/28 with family, friends, or neighbors? How often do you get together with friends or relatives? Never 05/28/2019 How often do you attend evangelical or adventist services? Never 05/28/2019 Do you belong to any clubs or organizations such as evangelical Yes 05/28/2019 groups, unions, fraternal or athletic groups, or school groups? How often do you attend meetings of the clubs or Never 05/28/2019 organizations you belong to? Are you now , , , , never 05/28/2019 or living with a partner? Physical Activity Answer Date Recorded On average, how many days per week do you engage in moderate to 0 days 2018 strenuous exercise (like walking fast, running, jogging, dancing, swimming, biking, or other activities that cause a light or heavy sweat)? On average, how many minutes do you engage in exercise at this 0 min 2018 level? Stress Answer Date Recorded Do you feel stress - tense, restless, nervous, or anxious, or Very much 05/28 unable to sleep at night because your mind is troubled all the time - these days? Education Answer Date Recorded What is the highest level of school you have completed or the 9th grade 05/28 highest degree you have received? Financial Resource Strain Answer Date Recorded How hard is it for you to pay for the very basics like Not very hard 2018 food, housing, medical care, and heating? Intimate Partner Violence Answer Date Recorded Within the last year, have you been afraid of your partner or No 05/28/2019 ex-partner? Within the last year, have you been humiliated or emotionally No 05/28/2019 abused in other ways by your partner or ex-partner? Within the last year, have you been kicked, hit, slapped, or No 05/28/2019 otherwise physically hurt by your partner or ex-partner? Within the last year, have you been raped or forced to have any No 05/28/2019 kind of sexual activity by your partner or ex-partner? Food Insecurity Answer Date Recorded Within the past 12 months, you worried that your food would Never true 2018 run out before you got money to buy more. Within the past 12 months, the food you bought just didn't Never true 2018 last and you didn't have money to get more. Transportation Needs Answer Date Recorded In the past 12 months, has lack of transportation kept you from Yes 2018 medical appointments or from getting medications? In the past 12 months, has lack of transportation kept you from Yes 2018 meetings, work, or getting things needed for daily living? Sex Assigned at Date Recorded Not on file Job Start Date Occupation Industry Not on file Not on file Not on file Travel History Travel Start Travel End No recent travel history available. documented as of this encounter Last Filed Vital Signs Vital Sign Reading Time Taken Comments Blood Pressure 150/85 07/02/2019 8:26 AM EST Pulse - - Temperature - - Respiratory Rate - - Oxygen Saturation - - Inhaled Oxygen Concentration - - Weight 93 kg (205 lb) 07/02/2019 8:26 AM EST Height 172.7 cm (5' 8") 07/02/2019 8:26 AM EST Body Mass Index 31.17 07/02/2019 8:26 AM EST documented in this encounter Progress Notes Jass Tinoco MD - 07/02/2019 8:40 AM EST PATIENT: Davion Thrasher : 1955 DATE OF SERVICE: 07/02/2019 REFERRING PRACTITIONER: [place] None PRIMARY CARE PROVIDER: None, [place] CHIEF COMPLAINT: Chief Complaint Patient presents with Post-op Follow-up Neck Pain right shoulder pain. Numbness both hands/ finger & also having it in both feet/toes Hip Pain left hip area HISTORY OF PRESENT ILLNESS: Mr. Thrasher returns about 2 weeks following cervical discectomy and fusion done for myelopathy. He continues to improve and has graduated from rehab to home. 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 His coordination and balance are slowly improving. The incision is healed well. I would like him to return in 1 month with x-rays. Past Medical History: Diagnosis Date Acute coronary syndrome (HCC) Anticoagulated by anticoagulation treatment Anxiety Arthritis Atrial fibrillation (HCC) Breath shortness Cardiac rhythm disorder or disturbance or change Cervical myelopathy (HCC) Clotting disorder (HCC) COPD (chronic obstructive pulmonary disease) (HCC) Coronary artery disease CVA (cerebral vascular accident) (HCC) Depression DVT (deep venous thrombosis) (HCC) Essential (primary) hypertension Fibromyalgia Head injury Headache disorder Heart attack (HCC) Hernia of abdominal cavity Hyperlipidemia 05/28/2019 Nerve disease, peripheral Pacemaker Psychiatric problem PVD (peripheral vascular disease) (HCC) Sleep apnea Stented coronary artery balloon angioplasty x2 Thrombocyte disorder (HCC) 05/28/2019 TIA (transient ischemic attack) Past Surgical History: Procedure Laterality Date BALO ANGIOP ICRA PRQ [id number], 2018 x 2 BIOPSY, LYMPH NODE, DEEP Right [id number] neck PA GI NUCLEAR PROCEDURE UNLISTED Left 1974 hernia and undescended testicle repair PA INS NEW/RPLCMT PRM PACEMAKR W/TRANS ELTRD ATRIAL PA ORBIT SURGERY PROC UNLISTED Bilateral , cataracts PA UNLISTED PROCEDURE, VASCULAR SURGERY UNLISTED PROCEDURE,MUSCULOSKELE shoulder, left knee Family History Problem Relation Age of Onset Heart Mother Heart Father Cancer Sister No Known Problems Brother Cancer Son No Known Problems Brother No Known Problems Brother No Known Problems Sister No Known Problems Sister No Known Problems Sister No Known Problems Son Social History Socioeconomic History Marital status: Spouse name: Not on file Number of children: Not on file Years of education: Not on file Highest education level: 9th grade Occupational History Not on file Social Needs Financial resource strain: Not very hard Food insecurity Worry: Never true Inability: Never true Transportation needs Medical: Yes Non-medical: Yes Tobacco Use Smoking status: Current Every Day Smoker Packs/day: 0.50 Years: 40.00 Pack years: 20.00 Types: Cigarettes Smokeless tobacco: Never Used Substance and Sexual Activity Alcohol use: Not on file Comment: very occasional Drug use: Yes Frequency: 8.0 times per week Types: Marijuana Comment: multiple times per day, every day Sexual activity: Yes Lifestyle Physical activity Days per week: 0 days Minutes per session: 0 min Stress: Very much Relationships Social connections Talks on phone: Twice a week Gets together: Never Attends adventist service: Never Active member of club or organization: Yes Attends meetings of clubs or organizations: Never Relationship status: Intimate partner violence Fear of current or ex partner: No Emotionally abused: No Physically abused: No Forced sexual activity: No Other Topics Concern Not on file Social History Narrative 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 Current Outpatient Medications Medication acetaminophen (TYLENOL) 325 MG Oral Tab Albuterol Sulfate (VENTOLIN HFA IN) ASPIRIN 81 PO atorvastatin (LIPITOR) 40 MG Oral Tab clopidogrel (PLAVIX) 75 MG Oral Tab cyclobenzaprine (FLEXERIL) 10 MG Oral Tab escitalopram (LEXAPRO) 20 MG Oral Tab gabapentin (NEURONTIN) 100 MG Oral Cap Metoprolol Succinate 25 MG Oral Capsule ER 24 Hour Sprinkle Nicotine (NICOTROL IN) nitroglycerin (NITROSTAT) 0.4 MG Sublingual SL Tab sennosides-docusate sodium (SENOKOT-S, SENNA S) 8.6-50 MG Oral Tab tramadol (ULTRAM) 50 MG Oral Tab Allergies Allergen Reactions Gabapentin GI Reaction REVIEW OF SYSTEMS: BP (!) 150/85 | Ht 5' 8" (1.727 m) | Wt 205 lb (93 kg) | BMI 31.17 kg/m Body mass index is 31.17 kg/m. Psychological ROS: negative Ophthalmic ROS: negative ENT ROS: negative Hematological and Lymphatic ROS: negative Endocrine ROS: negative Respiratory ROS: no cough, shortness of breath, or wheezing Cardiovascular ROS: no chest pain or dyspnea on exertion Gastrointestinal ROS: no abdominal pain, change in bowel habits, or black or bloody stools Genito-Urinary ROS: negative Musculoskeletal ROS: negative Neurological ROS: negative IMPRESSION / PLAN: ICD-9-CM ICD-10-CM 1. Spinal stenosis of cervical region 723.0 M48.02 Author: Jass Tinoco MD 07/02/2019 08:34 documented in this encounter Plan of Treatment Date Type Specialty Care Team Description 07/06/2019 Office Visit Hematology and Oncology Vidhya Sanchez MD [address] [place] [address] Name Type Priority Associated Diagnoses Order Schedule XR CERVICAL SPINE 3 Imaging Routine Spinal stenosis of Expected: 07/31/2019 , VIEWS OR LESS cervical region Expires: 07/01/2020 Health Maintenance Due Date Last Done Comments PNEUMOCOCCAL 0-64 YRS (1 of 1963 1 - PPSV23) DTaP/Tdap/Td Vaccines (1 - 1968 Tdap) DEPRESSION SCREENING 1969 Colonoscopy 2007 ZOSTER IMMUNIZATION SERIES 2007 (1 of 2) INFLUENZA VACCINE (#1) 2019 LIPID DISORDER SCREENING 05/28/2020 05/28/2019 DIABETES SCREENING 06/15/2020 06/15/2019, 06/13/2019, 06/11/2019, Additional history exists HEPATITIS C SCREENING Completed 05/29/2019 HIV SCREENING Completed 06/10/2019 HEPATITIS A IMMUNIZATION Aged Out No longer eligible SERIES based on patient's age to complete this topic HPV IMMUNIZATION SERIES Aged Out No longer eligible based on patient's age to complete this topic MENINGOCOCCAL VACCINE IMM Aged Out No longer eligible based on patient's age to complete this topic documented as of this encounter Implants Implanted Type Area Purchasing Manager Device Shelf Model / Identifier Expiration Serial / Date Lot Right Atrial Lead-03/10/2015 Lead MEDTRONIC [id number] / Implanted: 03/10/2015 (Quantity not on file) [id number] / Right Ventricular Lead-03/10/2015 Lead MEDTRONIC 5076-65 / Implanted: 03/10/2015 (Quantity not on file) [id number] / Advisa-03/10/2015 Pacemaker MEDTRONIC [id number] / Implanted: 03/10/2015 (Quantity not on file) [id number] / Cortical Spacer [id number] [employer] L-Sr - [id number] Spine SOFAMOR DANEK 08/02/2021 [id number] / Implanted: Qty: 1 on 06/13/2019 by Jass Tinoco MD at [facility] Cervical [id number] / [id number] Description:C3-4 Parker Ac Plate 23mm 1 Level - [id number] Spine Cervical SOFAMOR DANEK [id number] / Implanted: Qty: 1 on 06/13/2019 by Jass Tinoco MD at [facility] / Parker Screw 4[address] (Chin) - [id number] Spine Cervical SOFAMOR DANEK [id number] / Implanted: Qty: 2 on 06/13/2019 by Jass Tinoco MD at [facility] / Parker Screw 4.0 X 17 Va (Green) - [id number] Spine Cervical SOFAMOR DANEK [id number] / Implanted: Qty: 2 on 06/13/2019 by Jass Tinoco MD at [facility] / documented as of this encounter Results Not on filedocumented in this encounter Visit Diagnoses Diagnosis Spinal stenosis of cervical region Spinal stenosis in cervical region documented in this encounter documented as of this encounter Advance Directives Code Status Date Activated Date Inactivated Comments Full Code 05/28/2019 9:45 PM Does the patient have decision making capacity? Yes Order was discussed with: Patient I discussed all options and patient/surrogate requested and agreed to: Full Code
--- OUTSIDE RECORDS SUMMARY | 2019-08-05 10:43 | XMS REPORT | Summary of Care ---
:1955 Author Organization [facility] Address [address] [place] [id number] Care Team Providers Name Role Phone None, [place] Unavailable Unavailable None, [place] Primary Care Provider Unavailable Carroll Garcia MD-Attributed Pcp Reason for Visit Reason Comments Follow Up Still going to therapy Neck Pain feels like it still has tightness Numbness numbness/ tingling in both hands, worse in the right. Numbness/ tingling in both feet. Encounter Details Date Type Department Care Team Description 07/30/2019 Office Visit [facility] [place], Spinal stenosis of [address] [place] [address] [address] [facility] [address] [facility] (Primary Dx) [phone] [place] [id number] [phone] Allergies Active Allergy Reactions Severity Noted Date Comments Gabapentin GI Reaction 05/28/2019 documented as of this encounter (statuses as of 07/30/2019) Medications Medication Sig Dispensed Refills Start Date [...] Oral Cap mouth THREE TIMES DAILY. Additional Information Patient taking differently: 300 mg Oral TID, Reported on 07/02/2019 8:30 AM sennosides-docusate sodium Take 1 Tab by mouth 60 Tab 0 06/17/2019 Active (SENOKOT-S, SENNA S) 8.6-50 MG Oral TWICE DAILY. Tab documented as of this encounter (statuses as of 07/30/2019) Active Problems Problem Noted Date Spinal stenosis of cervical region 06/17/2019 Weakness 05/29/2019 documented as of this encounter (statuses as of 07/30/2019) Social History Tobacco Use Types Packs/Day Years [...] Never 05/28/2019 How often do you attend latter-day or synagogue services? Never 05/28/2019 Do you belong to any clubs or organizations such as latter-day Yes 05/28/2019 groups, unions, fraternal or athletic [...] Assigned at Date Recorded Not on file documented as of this encounter Last Filed Vital Signs Vital Sign Reading Time Taken Comments Blood Pressure 120/70 07/30/2019 9:51 AM EST Pulse - - Temperature - - Respiratory Rate - - Oxygen Saturation - - Inhaled Oxygen Concentration - - Weight 93 kg (205 lb) 07/30/2019 9:51 AM EST Height 172.7 cm (5' 8") 07/30/2019 9:51 AM EST Body Mass Index 31.17 07/30/2019 9:51 AM EST documented in this encounter Progress Notes Jass Tinoco MD - 07/30/2019 9:40 AM EST PATIENT: Davion Thrasher : 1955 DATE OF SERVICE: 07/30/2019 REFERRING PRACTITIONER: Jass Tinoco PRIMARY CARE PROVIDER: None, [place] CHIEF COMPLAINT: Chief Complaint Patient presents with ? Follow Up Still going to therapy ? Neck Pain feels like it still has tightness ? Numbness numbness/ tingling in both hands, worse in the right. Numbness/tingling in both feet. HISTORY OF PRESENT ILLNESS: Mr. Thrasher returns about 2 months following cervical discectomy and fusion done for progressive myelopathy. He continues to complain of some numbness and balance issues although his strength has clearlyimproved. He reports only moderate neck pain. X-rays are satisfactory. I found the strength to bealmost normal in terms of gross motor strength in both the upper and lower extremities. I would like him to return in 1 month with more x-rays. Past Medical History: Diagnosis Date ? Acute coronary syndrome (HCC) ? Anticoagulated by anticoagulation treatment ? Anxiety ? Arthritis ? Atrial fibrillation (HCC) ? Breath shortness ? Cardiac rhythm disorder or disturbance or change ? Cervical myelopathy (HCC) ? Clotting disorder (HCC) ? COPD (chronic obstructive pulmonary disease) ([facility] ? Coronary artery disease ? CVA (cerebral vascular accident) (HCC) ? Depression ? DVT (deep venous thrombosis) ([facility]) ? Essential (primary) hypertension ? Fibromyalgia ? Head injury ? Headache disorder ? Heart attack (HCC) ? Hernia of abdominal cavity ? Hyperlipidemia 05/28/2019 ? Nerve disease, peripheral ? Pacemaker ? Psychiatric problem ? PVD (peripheral vascular disease) ([facility]) ? Sleep apnea ? Stented coronary artery balloon angioplasty x2 ? Thrombocyte disorder (HCC) 05/28/2019 ? TIA (transient ischemic attack) Past Surgical History: Procedure Laterality Date ? BALO ANGIOP ICRA PRQ [id number], 2018 x 2 ? BIOPSY, LYMPH NODE, DEEP Right [id number] neck ? WI GI NUCLEAR PROCEDURE UNLISTED Left 1974 hernia and undescended testicle repair ? WI INS NEW/RPLCMT PRM PACEMAKR W/TRANS ELTRD ATRIAL ? WI ORBIT SURGERY PROC UNLISTED Bilateral , [id number] cataracts ? WI UNLISTED PROCEDURE, VASCULAR SURGERY ? UNLISTED PROCEDURE,MUSCULOSKELE shoulder, left knee Family History Problem Relation Age of Onset ? Heart Mother ? Heart Father ? Cancer Sister ? No Known Problems Brother ? Cancer Son ? No Known Problems Brother ? No Known Problems Brother ? No Known Problems Sister ? No Known Problems Sister ? No Known Problems Sister ? No Known Problems Son Social History Socioeconomic History ? Marital status: Spouse name: Not on file ? Number of children: Not on file ? Years of education: Not on file ? Highest education level: 9th grade Occupational History ? Not on file Social Needs ? Financial resource strain: Not very hard ? Food insecurity Worry: Never true Inability: Never true ? Transportation needs Medical: Yes Non-medical: Yes Tobacco Use ? Smoking status: Current Every Day Smoker Packs/day: 0.50 Years: 40.00 Pack years: 20.00 Types: Cigarettes ? Smokeless tobacco: Never Used Substance and Sexual Activity ? Alcohol Use Frequency: Never Comment: very occasional ? Drug use: Yes Frequency: 8.0 times per week Types: Marijuana Comment: multiple times per day, every day ? Sexual activity: Yes Lifestyle ? Physical activity Days per week: 0 days Minutes per session: 0 min ? Stress: Very much Relationships ? Social connections Talks on phone: Twice a week Gets together: Never Attends synagogue service: Never Active member of club or organization: Yes Attends meetings of clubs or organizations: Never Relationship status: ? Intimate partner violence Fear of current or ex partner: No Emotionally abused: No Physically abused: No Forced sexual activity: No Other Topics Concern ? 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 acetaminophen (TYLENOL) 325 MG Oral Tab ? Albuterol Sulfate (VENTOLIN HFA IN) ? ASPIRIN 81 PO ? atorvastatin (LIPITOR) 40 MG Oral Tab ? clopidogrel (PLAVIX) 75 MG Oral Tab ? cyclobenzaprine (FLEXERIL) 10 MG Oral Tab ? escitalopram (LEXAPRO) 20 MG Oral Tab ? gabapentin (NEURONTIN) 100 MG Oral Cap ? Metoprolol Succinate 25 MG Oral Capsule ER 24 Hour Sprinkle ? Nicotine (NICOTROL IN) ? nitroglycerin (NITROSTAT) 0.4 MG Sublingual SL Tab ? sennosides-docusate sodium (SENOKOT-S, SENNA S) 8.6-50 MG Oral Tab ? tramadol (ULTRAM) 50 MG Oral Tab Allergies Allergen Reactions ? Gabapentin GI Reaction REVIEW OF SYSTEMS: BP 120/70 | Ht 5' 8" (1.727 m) | Wt 205 lb (93 kg) | BMI 31.17 kg/m Body mass index is 31.17kg/m. Psychological ROS: negative Ophthalmic ROS: negative ENT [...] region 723.0 M48.02 Author: Jass Tinoco MD 07/30/2019 09:57 documented in this encounter Plan of Treatment Name Type Priority Associated Diagnoses Order Schedule XR CERVICAL SPINE 3 Imaging Routine Spinal stenosis of Expected: 08/30/2019 , VIEWS OR LESS cervical region Expires: 07/29/2020 Health Maintenance Due Date Last Done Comments [...] of this encounter Implants Implanted Type Area City Auditor Device Shelf Model / Identifier Expiration Serial / Date Lot Right Atrial Lead-03/10/2015 Lead MEDTRONIC 5076-58 / Implanted: 03/10/2015 (Quantity not on file) [id number] / Right Ventricular Lead-03/10/2015 Lead MEDTRONIC 5076-65 / Implanted: 03/10/2015 (Quantity not on file) [id number] / Advisa-03/10/2015 Pacemaker MEDTRONIC [id number] / Implanted: 03/10/2015 (Quantity not on file) [id number] / Cortical Spacer [id number] [employer] L-Sr - [id number] Spine SOFAMOR DANEK 08/02/2021 [id number] / Implanted: Qty: 1 on 06/13/2019 by Jass Tinoco MD at [facility] Cervical [id number] / [id number] Description:C3-4 [place] Ac Plate 23mm 1 Level - [id number] Spine Cervical SOFAMOR DANEK [id number] / Implanted: Qty: 1 on 06/13/2019 by Jass Tinoco MD at [facility] / [place] Screw 4[address] (Chin) - [id number] Spine Cervical SOFAMOR DANEK [id number] / Implanted: Qty: 2 on 06/13/2019 by Jass Tinoco MD at [facility] / [place] Screw 4.0 X 17 Va (Green) - [id number] Spine Cervical SOFAMOR DANEK [id number] / Implanted: Qty: 2 on 06/13/2019 by Jass Tinoco MD at [facility] / documented as of this encounter Results [...]
--- NOTE | 2019-08-05 11:42 | UC ---
Throat Pain/Nasal Jordy HPI - HPI Summary HPI Summary: 64-year-old male who had a sore throat for 2 days last week which resolved. The past 2 days he developed another sore throat. He denies any fever or chills. - History of Current Complaint Stated Complaint: SORE THROAT Time Seen by Provider: 08/05/19 11:24 Hx Obtained From: Patient Onset/Duration: Gradual Onset Severity: Mild Cough: None Associated Signs & Symptoms: Positive: Negative - Allergies/Home Medications Allergies/Adverse Reactions: Allergies Allergy/AdvReac Type Severity Reaction Status Date / Time PACEMAKER - NO MRIs Allergy PACEMAKER Uncoded 08/05/19 11:25 - CONTRAINDICATED FOR MRIs Home Medications: Home Medications Atorvastatin* [Lipitor 40 MG*] 40 mg PO DAILY 02/03/16 [History Confirmed ] Cyclobenzaprine TAB* [Flexeril 10 MG TAB*] 10 mg PO TID PRN 02/03/16 [History Confirmed 08/05/19] Nitroglycerin 0.4 mg SL SEE INSTRUCTIONS PRN 09/08/16 [History Confirmed ] Metoprolol Succinate XL TAB* [Toprol XL TAB*] 25 mg PO DAILY 09/19/17 [History Confirmed 08/05/19] Albuterol HFA INHALER* [Ventolin HFA Inhaler*] 2 puff INH Q4H PRN mdi 05/28/19 [Rx Confirmed 08/05/19] Aspirin EC TAB* [Ecotrin EC Low Dose 81 MG*] 81 mg PO DAILY tab.ec 06/25/19 [ Rx Confirmed 08/05/19] Clopidogrel TAB* [Plavix TAB*] 75 mg PO DAILY tab 06/25/19 [Rx Confirmed ] Gabapentin CAP(*) [Neurontin 300 CAP(*)] 300 mg PO TID #90 cap 06/25/19 [Rx Confirmed 08/05/19] Escitalopram * [Lexapro *] 20 mg PO DAILY tablet 06/26/19 [Rx Confirmed ] Tramadol HCl [Ultram] 50 mg PO Q8H PRN 07/11/19 [History Confirmed 08/05/19] PMH/Surg Hx/FS Hx/Imm Hx Previously Healthy: Yes Cardiovascular History: Hypertension, Pacemaker/ICD Respiratory History: COPD - Surgical History Surgical History: Yes Surgery Procedure, Year, and Place: left knee ARTHROSCOPY, cataract, hernia repair; RIGHT SHOULDER ARTHOSCOPY 05/28/13, REMOVAL OF PIN IN LEFT KNEE 05/28/13 , ANGIOPLASTY(NO STENTS), LUMPS REMOVED FROM THROAT(BENIGN) 2013, Pacemaker 2014 ; Stent placement in artery 08/09/16 at [facility] [place] - Family History Known Family History: Positive: Cardiac Disease, Hypertension - Social History Occupation: Retired Alcohol Use: None Alcohol Amount: 1 drink per week Substance Use Type: Marijuana Substance Use Comment - Amount & Last Used: tramadol and lyrica Smoking Status (MU): Current Every Day Smoker Type: Cigarettes Amount Used/How Often: 1/2 PPD Have You Smoked in the Last Year: Yes Household Exposure Type: Cigarettes - Immunization History Most Recent Influenza Vaccination: 06/19/19 Most Recent Pneumonia Vaccination: 2017 Review of Systems All Other Systems Reviewed And Are Negative: Yes ENT: Positive: Sore Throat Is Patient Immunocompromised?: No Physical Exam Triage Information Reviewed: Yes Appearance: Well-Appearing, No Pain Distress, Well-Nourished Vital Signs Reviewed: Yes Eyes: Positive: Conjunctiva Clear ENT: Positive: Pharynx normal, TMs normal, Uvula midline. Negative: Tonsillar swelling, Tonsillar exudate, Trismus, Muffled voice, Hoarse voice Neck: Positive: Supple, Nontender, No Lymphadenopathy Respiratory: Positive: Lungs clear, Normal breath sounds, No respiratory distress, No accessory muscle use Cardiovascular: Positive: RRR, No Murmur, Pulses Normal, Brisk Capillary Refill Musculoskeletal Exam: Normal Neurological Exam: Normal Psychological Exam: Normal Skin Exam: Normal Throat Pain/Nasal Course/Dx - Course Course Of Treatment: Rapid strep test: Negative The patient is comfortable here and nontoxic. - Differential Dx/Diagnosis Provider Diagnosis: Pharyngitis Discharge ED - Sign-Out/Discharge Documenting (check all that apply): Patient Departure All imaging exams completed and their final reports reviewed: No Studies - Discharge Plan Condition: Good Disposition: HOME Patient Education Materials: Pharyngitis (ED) Referrals: Carroll Garcia MD [Primary Care Provider] - Additional Instructions: Increase fluids, warm salt water gargles, throat lozenges. Definite follow-up with your primary care provider in 3 or 4 days if no improvement. - Billing Disposition and Condition Condition: GOOD Disposition: Home
[2019-08-05 11:43] VITALS: BP 136/86
== END 2019-08-05 12:15 | disposition home or self-care (01) ==
LOC: UCCORT 10:37
DX: J02.9 Acute pharyngitis, unspecified (principal); I10 Essential (primary) hypertension; J44.9 Chronic obstructive pulmonary disease, unspecified; F17.210 Nicotine dependence, cigarettes, uncomplicated; Z95.0 Presence of cardiac pacemaker; Z79.82 Long term (current) use of aspirin; Z79.01 Long term (current) use of anticoagulants; Z79.899 Other long term (current) drug therapy
CPT/HCPCS: 87651; 99212; G0463

== ENCOUNTER 2024-05-28 10:07 | Observation (INO) ==
[~2024-05-28 10:07] MED LIST: HYDROmorphone 1 MG/1 ML SYRINGE IV PRN; Lidocaine 2% PF 5 ML VIAL ONE; Midazolam 2 mg/2 ml VIAL 1 mg/ml 2 ml VIAL (2 mg) ONE; Naloxone 0.4 mg VIAL 0.4 mg/ml 1 ml VIAL IV PRN; Ondansetron 4 mg VIAL 2 MG/ML 2 ml VIAL IV PRN; Propofol 10 MG/ML 20 ML BTL ONE; Rocuronium 50 mg VIAL 10 mg/ml 5 ml VIAL (50 mg) ONE; fentaNYL 100 mcg/2 ml 50 MCG/ML VIAL ONE
[2024-05-28] MEDS ORDERED: Chlorhexidine MOUTHWASH 0.12% 15 ML UDC ONE (10:26)
[2024-05-28] MEDS ORDERED: Bacitracin OINTMENT TUBE ONE (10:39)
[2024-05-28] MEDS ORDERED: Lidocaine 1% w EPI 1:100,000 MDV 50 ML VIAL ONE (10:39)
[2024-05-28] MEDS ORDERED: ceFAZolin VIAL VIAL ONE (10:39)
[2024-05-28 10:56] LABS: Rapid COVID-19 Molecular Undetected (Undetected)
[2024-05-28] MEDS: Lactated Ringers 1000 ml BAG 1,000 ML IV SCH ×2 (11:16→16:19)
[2024-05-28] MEDS: Buffered Lidocaine 1% SYRIN 1 ml INTRADERM ONE (11:16)
[2024-05-28] MEDS: Scopolamine 1 mg/72hr PATCH TRANSDERM ONE (11:17)
[2024-05-28] MEDS ORDERED: ceFAZolin 2 GM PREMIX 2 GM/50 ML BAG ONE (11:21)
[2024-05-28] MEDS ORDERED: Lidocaine 2% JELLY 6 ML Topical TOPICAL ONE (11:51)
[2024-05-28] MEDS ORDERED: Phenylephrine 40 mcg/mL 10mL (400mcg) SYRINGE ONE ×2 (12:51→13:46)
[2024-05-28] MEDS ORDERED: Dexamethasone IV 4 MG/ML VIAL 1 ml VIAL ONE (12:54)
[2024-05-28] MEDS ORDERED: Ondansetron 4 mg VIAL 2 MG/ML 2 ml VIAL ONE (12:54)
[2024-05-28] MEDS ORDERED: HYDROmorphone 0.5 MG/0.5 ML SYRINGE ONE ×2 (12:56)
[2024-05-28] MEDS ORDERED: Rocuronium 50 mg VIAL 10 mg/ml 5 ml VIAL (50 mg) ONE (13:23)
[2024-05-28] MEDS ORDERED: Calcium Carb (TUMS) 500 mg CHEW TAB PO PRN (14:31)
[2024-05-28] MEDS ORDERED: Dextran 70/Hypromellose Tears Eye Drops 15 ml BTL (for Artificials Tears) BOTH EYES PRN (14:31)
[2024-05-28] MEDS ORDERED: Senna TAB 8.6 mg TAB PO PRN (14:31)
[2024-05-28] MEDS ORDERED: Magnesium Hydroxide LIQ 30 ML UDC PO PRN (14:31)
[2024-05-28] MEDS ORDERED: Phenol 1.4% Throat Spray BTL MT PRN (14:31)
[2024-05-28] MEDS ORDERED: Ondansetron 4 mg VIAL 2 MG/ML 2 ml VIAL IV PRN (14:31)
[2024-05-28] MEDS ORDERED: Benzocaine/Menthol LOZ MT PRN (14:31)
[2024-05-28] MEDS ORDERED: Morphine 2 MG/ML SYRINGE IV PRN (14:31)
[2024-05-28] MEDS ORDERED: Albuterol HFA INHALER 8 gm MDI INH PRN (14:34)
[2024-05-28] MEDS ORDERED: fentaNYL 100 mcg/2 ml 50 MCG/ML VIAL ONE (14:51)
[2024-05-28] MEDS: fentaNYL 100 mcg/2 ml 50 MCG/ML VIAL IV PRN (15:04)
[2024-05-28] MEDS ORDERED: Albuterol 2.5mg/3 ml (0.083%) NEB.SOLN INH PRN (16:16)
[2024-05-28] MEDS: Acetaminophen IV 1 GM/100ML 1,000 MG/100 ML BAG IV ONE (16:19)
[2024-05-28] MEDS: Tiotropium Brom/Olodaterol MDI (ACUTE) INH SCH (21:43)
[2024-05-29 05:10] VITALS: BP 151/79
[2024-05-29] MEDS: Isosorbide Mononit ER 30mg TAB PO SCH (08:14)
== END 2024-05-29 10:29 | disposition home or self-care (01) ==
LOC: SSU 10:07 → OR 10:07
PROVIDERS: ADMIT Neurological Surgery; ATTEND Neurological Surgery